=== PATIENT | male | born 1960 | race Caucasian/White ===

== ENCOUNTER 2016-04-06 12:36 | Inpatient (IN) | payer MEDICARE, OTHER ==
[2016-04-06] MEDS ORDERED: LORazepam 2 MG/ML SYRINGE IV STA (14:11)
[2016-04-06] MEDS ORDERED: SODIUM CHLORIDE 0.9% 1,000 ML IV STA ×2 (14:11)
--- NOTE | 2016-04-06 14:14 | ED ---
General Adult HPI - General Chief complaint: Recheck/Abnormal Lab/Rx Stated complaint: Anxiety,Pain Time Seen by Provider: 04/06/16 13:56 Source: patient, RN notes reviewed Mode of arrival: wheelchair Limitations: no limitations - History of Present Illness Initial comments: Patient 56-year-old male who presents emergency room today with a chief complaint of dizziness lightheadedness. Patient does admit that he is out of his medication of Xanax. States that he's been trying follow-up the family doctor. He states he does have an appointment coming up in 7 days. States she' s had increased shaking since being out of his medications. States feeling lightheaded and dizzy and states appetites been decreased. Patient denies any other complaints. Patient denies any recent fever, chills, shortness of breath, chest pain, back pain, abdominal pain, vomiting, dysuria or hematuria, constipation or diarrhea, headaches or visual changes, or any other complaints. - Related Data Home Medications Medication Instructions Recorded Confirmed ALPRAZolam [Xanax] 2 mg PO BID 03/27/16 03/27/16 Carisoprodol [Soma] 350 mg PO QID 03/27/16 03/27/16 Gabapentin [Neurontin] 300 mg PO TID 03/27/16 03/27/16 Pantoprazole [Protonix] 40 mg PO DAILY 03/27/16 03/27/16 QUEtiapine FUMARATE [SEROquel] 300 mg PO HS 03/27/16 03/27/16 Previous Rx's Medication Instructions Recorded Gabapentin [Neurontin] 300 mg PO BID 7 Days 03/27/16 Pantoprazole [Protonix] 40 mg PO ONCE 14 Days 03/27/16 QUEtiapine [SEROquel] 300 mg PO HS 14 Days 03/27/16 hydrOXYzine PAMOATE [Vistaril] 50 mg PO HS 14 Days 03/27/16 Allergies Allergy/AdvReac Type Severity Reaction Status Date / Time No Known Allergies Allergy Verified 04/06/16 12:53 Review of Systems ROS Statement: Those systems with pertinent positive or pertinent negative responses have been documented in the HPI. ROS Other: All systems not noted in ROS Statement are negative. Past Medical History Additional Past Medical History / Comment(s): chronic back pain History of Any Multi-Drug Resistant Organisms: None Reported Past Surgical History: Joint Replacement, Orthopedic Surgery Additional Past Surgical History / Comment(s): left hip Past Psychological History: Anxiety, Bipolar, Depression Smoking Status: Current every day smoker Past Alcohol Use History: None Reported Past Drug Use History: None Reported General Exam - General Exam Comments Initial Comments: General: The patient is awake and alert, in no distress, and does not appear acutely ill. Eye: Pupils are equal, round and reactive to light, extra-ocular movements are intact. No nystagmus. There is normal conjunctiva bilaterally. No signs of icterus. Ears, nose, mouth and throat: There are moist mucous membranes and no oral lesions. Neck: The neck is supple, there is no tenderness or JVD. Cardiovascular: There is a regular rate and rhythm. No murmur, rub or gallop is appreciated. Respiratory: Lungs are clear to auscultation, respirations are non-labored, breath sounds are equal. No wheezes, stridor, rales, or rhonchi. Gastrointestinal: Soft, non-distended, non-tender abdomen without masses or organomegaly noted. There is no rebound or guarding present. No CVA tenderness. Bowel sounds are unremarkable. Musculoskeletal: Normal ROM, no tenderness. Strength 5/5. Sensation intact. Pulses equal bilaterally 2+. Neurological: A&O x 3. CN II-XII intact, There are no obvious motor or sensory deficits. Coordination appears grossly intact. Speech is normal. Skin: Skin is warm and dry and no rashes or lesions are noted. Psychiatric: Cooperative, appropriate mood & affect, normal judgment. Limitations: no limitations Course Vital Signs 04/06/16 04/06/16 12:51 15:27 Temperature 98.1 F Pulse Rate 80 76 Respiratory 20 20 Rate Blood Pressure 173/92 161/102 O2 Sat by Pulse 98 99 Oximetry Medical Decision Making - Medical Decision Making Patient reexamined at this time states he is feeling better after Ativan given here in the emergency room. States still feels very shaky unsteady on his feet. Case was discussed with attending physician Dr. Sanchez. Patient will be admitted for withdrawal symptoms. - Lab Data Result diagrams: 04/06/16 14:25 04/06/16 14:25 Lab Results 04/06/16 04/06/16 04/06/16 Range/Units 14:25 14:25 15:06 WBC 12.0 H (3.8-10.6) k/uL RBC 4.93 (4.30-5.90) m/uL Hgb 15.0 (13.0-17.5) gm/dL Hct 43.9 (39.0-53.0) % MCV 89.0 (80.0-100.0) fL MCH 30.5 (25.0-35.0) pg MCHC 34.3 (31.0-37.0) g/dL RDW 13.7 (11.5-15.5) % Plt Count 390 (150-450) k/uL Neutrophils % 83 % Lymphocytes % 11 % Monocytes % 3 % Eosinophils % 1 % Basophils % 0 % Neutrophils # 10.0 H (1.3-7.7) k/uL Lymphocytes # 1.4 (1.0-4.8) k/uL Monocytes # 0.4 (0-1.0) k/uL Eosinophils # 0.1 (0-0.7) k/uL Basophils # 0.0 (0-0.2) k/uL Sodium 147 H (137-145) mmol/L Potassium 4.3 (3.5-5.1) mmol/L Chloride 106 (98-107) mmol/L Carbon Dioxide 23 (22-30) mmol/L Anion Gap 18 mmol/L BUN 29 H (9-20) mg/dL Creatinine 1.07 (0.66-1.25) mg/dL Est GFR (MDRD) Af Amer >60 (>60 ml/min/1.73 sqM) Est GFR (MDRD) Non-Af >60 (>60 ml/min/1.73 sqM) Glucose 126 H (74-99) mg/dL Calcium 10.1 (8.4-10.2) mg/dL Total Bilirubin 0.5 (0.2-1.3) mg/dL AST 19 (17-59) U/L ALT 37 (21-72) U/L Alkaline Phosphatase 80 (38-126) U/L Total Protein 8.1 (6.3-8.2) g/dL Albumin 4.9 (3.5-5.0) g/dL Urine Color Yellow Urine Appearance Clear (Clear) Urine pH 6.5 (5.0-8.0) Ur Specific [place] 1.025 (1.001-1.035) Urine Protein Trace H (Negative) Urine Glucose (UA) Negative (Negative) Urine Ketones Negative (Negative) Urine Blood Negative (Negative) Urine Nitrate Negative (Negative) Urine Bilirubin Negative (Negative) Urine Urobilinogen 2.0 (<2.0) mg/dL Ur Leukocyte Esterase Negative (Negative) Urine Opiates Screen Not Detected (NotDetected) Ur Oxycodone Screen Detected H (NotDetected) Urine Methadone Screen Not Detected (NotDetected) Ur Propoxyphene Screen Not Detected (NotDetected) Ur Barbiturates Screen Not Detected (NotDetected) U Tricyclic Antidepress Detected H (NotDetected) Ur Phencyclidine Scrn Not Detected (NotDetected) Ur Amphetamines Screen Not Detected (NotDetected) U Methamphetamines Scrn Not Detected (NotDetected) U Benzodiazepines Scrn Detected H (NotDetected) Urine Cocaine Screen Not Detected (NotDetected) U Marijuana (THC) Screen Not Detected (NotDetected) Disposition Clinical Impression: Benzodiazepine withdrawal Disposition: ADMITTED IP TO THIS HOSP Condition: Stable Time of Disposition: 16:11
[2016-04-06 14:35] LABS: Basophils % (A) 0 %; CH 30.7; CHCM 34.7; Eosinophils # (A) 0.1 k/uL (0-0.7); Eosinophils % (A) 1 %; HCT 43.9 % (39.0-53.0); HDW 2.56; Luc # (Auto) 0.09; Luc % (Auto) 1; Lymphocytes # (A) 1.4 k/uL (1.0-4.8); Lymphocytes % (A) 11 %; MCH 30.5 pg (25.0-35.0); MCHC 34.3 g/dL (31.0-37.0); Mean Platelet Volume 6.1; Monocytes # (A) 0.4 k/uL (0-1.0); Monocytes % (A) 3 %; Neutrophils % (A) 83 %; RBC 4.93 m/uL (4.30-5.90); RDW 13.7 % (11.5-15.5); WBC (Perox) 12.12
[2016-04-06 14:44] LABS: ALT 37 U/L (21-72); AST 19 U/L (17-59); Alkaline Phosphatase 80 U/L (38-126); Anion Gap 18 mmol/L; Blood Urea Nitrogen 29 mg/dL (9-20); Calcium 10.1 mg/dL (8.4-10.2); Carbon Dioxide 23 mmol/L (22-30); Chloride 106 mmol/L (98-107); Glucose 126 mg/dL (74-99); Non-African American GFR(MDRD) >60 (>60 ml/min/1.73 sqM); Potassium 4.3 mmol/L (3.5-5.1); Sodium 147 mmol/L (137-145); Total Bilirubin 0.5 mg/dL (0.2-1.3); Total Protein 8.1 g/dL (6.3-8.2)
[2016-04-06 15:16] LABS: Appearance,Urine Clear (Clear); Bilirubin,Urine Negative (Negative); Glucose,Urine (UA) Negative (Negative); Ketones,Urine Negative (Negative); Leukocyte Esterase,Urine Negative (Negative); Nitrite,Urine Negative (Negative); PH, Urine 6.5 (5.0-8.0); Protein,Urine Trace (Negative); Specific Gravity,Urine 1.025 (1.001-1.035); UA Billing (MACRO vs. MICRO) CHEM
[2016-04-06] MEDS ORDERED: NALOXONE 0.4 MG/ML 1 ML VIAL IV PRN (16:11)
[2016-04-06] MEDS ORDERED: SODIUM CHLORIDE 0.9% 1,000 ML IV ONE (16:11)
[2016-04-06] MEDS ORDERED: ACETAMINOPHEN TAB 325 MG TAB PO PRN (16:11)
[2016-04-06] MEDS ORDERED: LORazepam 2 MG/ML SYRINGE IV PRN (16:13)
[2016-04-06 18:33] VITALS: BMI 20.5
[2016-04-06] MEDS: LORazepam 2 MG/ML SYRINGE IV PRN ×3 (18:38→22:50)
[2016-04-06] MEDS: QUEtiapine 100 MG TAB PO SCH (20:13)
[2016-04-06] MEDS: GABAPENTIN 300 MG CAP PO SCH (20:13)
[2016-04-06] MEDS: PANTOPRAZOLE 40 MG TABLET PO SCH (20:14)
[2016-04-06] MEDS: oxyCODONE-APAP 7.5-325MG 1 EACH TAB PO PRN (20:14)
[2016-04-06] MEDS: hydrOXYzine PAMOATE 25 MG CAP PO SCH (22:51)
[2016-04-07 06:53] LABS: Basophils % (A) 1 %; CH 31.4; CHCM 33.8; Eosinophils # (A) 0.3 k/uL (0-0.7); Eosinophils % (A) 4 %; HCT 39.2 % (39.0-53.0); HDW 2.58; HGB 12.7 gm/dL (13.0-17.5); Luc # (Auto) 0.14; Luc % (Auto) 2; Lymphocytes % (A) 33 %; MCH 30.1 pg (25.0-35.0); MCHC 32.3 g/dL (31.0-37.0); MCV 93.3 fL (80.0-100.0); Mean Platelet Volume 6.8; Monocytes # (A) 0.4 k/uL (0-1.0); Monocytes % (A) 7 %; Neutrophils # (A) 3.2 k/uL (1.3-7.7); Neutrophils % (A) 53 %; RBC 4.21 m/uL (4.30-5.90); RDW 13.7 % (11.5-15.5); WBC 6.1 k/uL (3.8-10.6); WBC (Perox) 6.28
[2016-04-07 07:07] LABS: ALT 25 U/L (21-72); AST 13 U/L (17-59); Alkaline Phosphatase 55 U/L (38-126); Anion Gap 7 mmol/L; Blood Urea Nitrogen 23 mg/dL (9-20); Calcium 9.2 mg/dL (8.4-10.2); Carbon Dioxide 23 mmol/L (22-30); Chloride 110 mmol/L (98-107); Glucose 103 mg/dL (74-99); Non-African American GFR(MDRD) >60 (>60 ml/min/1.73 sqM); Potassium 4.1 mmol/L (3.5-5.1); Sodium 140 mmol/L (137-145); Total Bilirubin 0.3 mg/dL (0.2-1.3); Total Protein 5.9 g/dL (6.3-8.2)
[2016-04-07] MEDS: oxyCODONE-APAP 7.5-325MG 1 EACH TAB PO PRN ×3 (07:51→23:55)
[2016-04-07] MEDS: PANTOPRAZOLE 40 MG TABLET PO SCH (07:51)
[2016-04-07] MEDS: GABAPENTIN 300 MG CAP PO SCH ×2 (07:53→19:59)
[2016-04-07] MEDS: LORazepam 2 MG/ML SYRINGE IV PRN ×5 (07:57→23:56)
[2016-04-07] MEDS: IBUPROFEN 400 MG TAB PO PRN ×2 (11:45→20:02)
[2016-04-07] MEDS: QUEtiapine 100 MG TAB PO SCH (19:59)
[2016-04-07] MEDS: hydrOXYzine PAMOATE 25 MG CAP PO SCH (19:59)
[2016-04-08] MEDS: LORazepam 2 MG/ML SYRINGE IV PRN ×5 (03:53→19:45)
[2016-04-08 05:10] VITALS: RESP 16
[2016-04-08] MEDS: GABAPENTIN 300 MG CAP PO SCH ×2 (10:38→20:02)
[2016-04-08] MEDS: PANTOPRAZOLE 40 MG TABLET PO SCH (10:38)
[2016-04-08] MEDS: oxyCODONE-APAP 7.5-325MG 1 EACH TAB PO PRN ×2 (10:45→18:50)
--- NOTE | 2016-04-08 11:18 | HP ---
DATE OF ADMISSION: 04/06/2016 CHIEF COMPLAINT: Anxiety and pain. HISTORY OF PRESENT ILLNESS: Mr. Juarez is a 56-year-old male with known history of chronic back pain and anxiety. He came to the hospital with complaints of dizziness and lightheadedness. Patient admitted that he is out of his medication of Xanax. He has been trying to follow with his primary doctor. He does have an appointment in 7 days but he his increasing shaking and anxiety made him come to the ER. Patient had lightheadedness and dizziness and loss of appetite on admission. Denied any fever, chills. No nausea, vomiting, abdominal pain. No diarrhea. No dysuria. No recent illness. No sick contacts. No headache or dizziness or lightheadedness. All other fourteen-point review of systems negative except as above. PAST MEDICAL HISTORY: Chronic back pain, anxiety. PAST SURGICAL HISTORY: Left hip replacement. PSYCHOSOCIAL HISTORY: Anxiety, bipolar, depression. SOCIAL HISTORY: Patient is currently an everyday smoker. Occasional alcohol use. Denied drugs or IVDU. ALLERGIES: No known drug allergies. Home medications include: 1. Xanax. 2. Neurontin. 3. Protonix. 4. Seroquel. 5. Restoril. FAMILY HISTORY: Denied any history of hypertension or diabetes mellitus. PHYSICAL EXAMINATION: A 56-year-old male lying in the bed. Awake, alert, oriented, times x3. He appears to be shaky and with tremors. VITALS: Blood pressure is 122/70, pulse is 70, respirations 18, temperature afebrile, pulse ox 98% on room air. HEENT: Atraumatic, normocephalic. NECK: Supple. No JVD. CVS: S1, S2 heard. No murmurs, no gallop, no rub. LUNGS: Bilateral air entry is present. No edema or crackles. Nonlabored breathing. ABDOMEN: Soft, nontender. Bowel sounds present. MORTGAGE BRANCH MANAGER: Awake, alert, oriented, x3. No focal deficits. Cranial nerves grossly intact. The patient does have essential tremor. PSYCHIATRIC: Cooperative. Anxious. LABORATORY DATA: WBC 12.0, hemoglobin 15.0, platelets 390, sodium 147, potassium 4.3, chloride 106, bicarbonate 23, BUN 29, creatinine 1.07. IMPRESSION:
--- NOTE | 2016-04-08 12:13 | HP ---
ADDENDUM: IMPRESSION: 1. Acute Xanax withdrawal with shakiness and anxiety. 2. History of anxiety, depression. 3. Chronic back pain. DISCUSSION AND PLAN: Patient admitted to the hospital with acute Xanax withdrawal. Continue with the Ativan 5 mg 1-2 p.r.n. and the patient was given IV flush in the ER. Continue with home medications and follow up. Further recommendations based on clinical course.
[2016-04-08] MEDS: hydrOXYzine PAMOATE 25 MG CAP PO SCH (20:01)
[2016-04-08] MEDS: QUEtiapine 100 MG TAB PO SCH (20:02)
[2016-04-08] MEDS ORDERED: MAG HYDROX/AL HYDROX/SIMETH 30 ML CUP PO PRN (20:12)
[2016-04-09] MEDS: oxyCODONE-APAP 7.5-325MG 1 EACH TAB PO PRN ×2 (05:24→12:37)
[2016-04-09] MEDS: LORazepam 2 MG/ML SYRINGE IV PRN ×3 (05:58→12:00)
[2016-04-09 07:27] VITALS: BP 113/72; PULSE 58; TEMP 96.9
[2016-04-09] MEDS ORDERED: PANTOPRAZOLE 40 MG TABLET PO SCH (07:30)
[2016-04-09] MEDS: GABAPENTIN 300 MG CAP PO SCH (08:07)
--- NOTE | 2016-04-09 12:53 | PN ---
DATE OF SERVICE: 04/08/2016 INTERVAL HISTORY: Mr. Juarez is a 56-year-old man with a known history of chronic back pain and anxiety admitted to the hospital with dizziness and lightheadedness and acute ( ) withdrawal. The patient was continued on Ativan at this time. Otherwise, the patient is still having shakiness and lightheadedness and dizziness. Tolerating diet slowly. Otherwise, no fever. No chills. No chest pain, short of breath. No acute overnight issues. Anticipate discharge in the next 24 hours if more clinical improvement. REVIEW OF SYSTEMS: CONSTITUTIONAL: No fever, no chills. RESPIRATORY: No cough or sputum production. CARDIOVASCULAR: No chest pain or short of breath. ABDOMEN: No nausea, vomiting. GENITOURINARY: Negative. ENDOCRINE: Negative. SKIN: Negative. PSYCHIATRY: Negative. All other 14 point review of systems negative except as above. CURRENT MEDICATIONS: Reviewed. PHYSICAL EXAMINATION: A 56-year-old male lying in comfortably, awake, alert, oriented, x3. Appears to be anxious and shaky. VITAL SIGNS: Blood pressure is 126/74, pulse is 75, respiratory rate 16. Temperature afebrile. Pulse ox 92% on room air. HEENT: Atraumatic. Normocephalic. Neck is supple. No JVD. CVS: S1, S2 heard. No murmurs. No gallops. No rubs. LUNGS: Bilateral air entry is present. No wheezing. No crackles. ABDOMEN: Soft, nontender. Bowel sounds present. VEHICLE MECHANIC: Awake, alert and oriented x3. No focal neurological deficits. Cranial nerves grossly intact. Conscious. SKIN: Negative. MUSCULOSKELETAL: No joint swelling or deformities. SKIN: No rash or skin lesions. LABORATORY DATA: Reviewed. IMPRESSION: 1. Acute benzo withdrawal. Still having shaky and anxious. 2. History of anxiety and depression. 3. Chronic back pain. DISCUSSION AND PLAN: A 56 -year-old male admitted to the hospital with acute benzo withdrawal. We will continue with Ativan at this time. Continue to monitor closely. Anticipate discharge in the next 24 hours with more clinical improvement. Encourage p.o. intake. MTDD
--- NOTE | 2016-04-25 11:41 | DS ---
DATE OF ADMISSION: 04/08/2016 DATE OF DISCHARGE: 04/09/2016 DISCHARGE DIAGNOSES: 1. Acute benzodiazepine withdrawal, symptomatically improved now. 2. History of anxiety and depression. 3. Chronic back pain. HOSPITAL COURSE: Mr. Juarez is a 56-year-old male with known history of anxiety and depression, chronic back pain, currently out of medications, admitted to the hospital with worsening shakiness and dizziness and lightheadedness and acute benzodiazepine withdrawal. Patient was continued on Ativan at this time and closely monitored in the hospital. Current patient is symptomatically much improved now. Started back on his home dose of Xanax on discharge as well. Currently, patient is more awake and oriented and tolerating p.o. diet. The patient will be discharged home in stable condition and follow up with primary care physician. DISCHARGE PHYSICAL EXAMINATION: A 56-year-old male lying in bed comfortably, awake, alert, oriented x3. VITALS: Blood pressure is 113/72, pulse is 58, respirations 16, temperature afebrile, pulse ox 97% on room air. Laboratory data reviewed. Discharge physical examination done. Discharge medications include: 1. Xanax 1mg p.o. q.8 hourly p.r.n. for anxiety. 2. Gabapentin 300 mg p.o. b.i.d. 3. Protonix 40 mg p.o. daily. 4. Seroquel 300 mg p.o. at bedtime. 5. Vistaril 50 mg p.o. at bedtime. 6. Percocet 7.5 one tablet p.o. q.8 hourly p.r.n. for pain. The patient will be discharged home with self-care. Follow with Dr. Mata in one week.
== END 2016-04-09 12:59 | disposition home or self-care (01) | DRG 897 ==
LOC: EC 12:36 → 3OBS 16:12 → OBSVTOIN 04-08 14:11 → 3SUR 04-08 15:27
PROVIDERS: ADMIT Hospitalist; ATTEND Hospitalist
DX: F13.239 Sedative, hypnotic or anxiolytic dependence with withdrawal, unspecified (principal); F32.9 Major depressive disorder, single episode, unspecified; F41.9 Anxiety disorder, unspecified; G89.29 Other chronic pain; M54.9 Dorsalgia, unspecified; F17.200 Nicotine dependence, unspecified, uncomplicated; Z96.642 Presence of left artificial hip joint; Z79.899 Other long term (current) drug therapy
CPT/HCPCS: 36415; 80053; 80300; 81003; 85025; 96361; 96374; 96376; 99284

== ENCOUNTER → 2016-04-30 | Outpatient (CLI) | payer MEDICARE, OTHER ==
--- NOTE | 2016-04-30 16:30 | XR ---
EXAMINATION TYPE: XR chest 2V DATE OF EXAM: 04/30/2016 11:57 AM COMPARISON: Prior chest x-ray second of March 2012 HISTORY: Cough TECHNIQUE: Frontal and lateral views of the chest are obtained. FINDINGS: Prominent lung volumes are present. This may be indicative of COPD. Wedge compression defo rmity present at the upper thoracic spine which is chronic. No pneumonia, pneumothorax, or pleural ef fusion. There is eventration of the right hemidiaphragm. Cardiomediastinal silhouette, pulmonary vasc ularity and viral are stable. IMPRESSION: No acute cardiopulmonary process. Follow-up as indicated.
== END | disposition home or self-care (01) ==
LOC: RADXRMAIN 04-28 12:26
PROVIDERS: ATTEND Internal Medicine
DX: R05 Cough (principal)
CPT/HCPCS: 71020

== ENCOUNTER 2016-05-16 14:08 | Emergency (ER) | payer MEDICARE, OTHER ==
[2016-05-16 14:27] VITALS: BP 136/98; PULSE 84; RESP 20; TEMP 98.8
--- NOTE | 2016-05-16 15:00 | ED ---
General Adult HPI - General Chief complaint: Recheck/Abnormal Lab/Rx Stated complaint: Med Refill Time Seen by Provider: 05/16/16 14:40 Source: patient, RN notes reviewed Mode of arrival: ambulatory Limitations: no limitations - History of Present Illness Initial comments: This is a 48-year-old male presents for medication refill requesting his Xanax. Patient states he has called his doctor twice and she will not refill his Xanax. Patient states his last dose of Xanax was one month ago. Patient has not had any Xanax since this time. Patient states he is trying to follow up with psychiatrist in the future. Patient denies any recent fever, chills, shortness breath, chest pain, abdominal pain, nausea/vomiting/diarrhea, back pain, numbness, tingling, hematuria, headache, or visual changes, or any other complaints. - Related Data Previous Rx's Medication Instructions Recorded ALPRAZolam [Xanax] 1 mg PO Q8H PRN #15 tablet 04/08/16 Gabapentin [Neurontin] 300 mg PO BID 7 Days 04/09/16 Pantoprazole [Protonix] 40 mg PO DAILY #30 tablet. 04/09/16 QUEtiapine [SEROquel] 300 mg PO HS 14 Days 04/09/16 hydrOXYzine PAMOATE [Vistaril] 50 mg PO HS 14 Days 04/09/16 oxyCODONE-APAP 7.5-325MG [Percocet 1 tab PO Q8H PRN #20 tab 04/09/16 7.5-325 mg] Allergies Allergy/AdvReac Type Severity Reaction Status Date / Time No Known Allergies Allergy Verified 05/16/16 14:27 Review of Systems ROS Statement: Those systems with pertinent positive or pertinent negative responses have been documented in the HPI. ROS Other: All systems not noted in ROS Statement are negative. Past Medical History Additional Past Medical History / Comment(s): chronic back pain History of Any Multi-Drug Resistant Organisms: None Reported Past Surgical History: Joint Replacement, Orthopedic Surgery Additional Past Surgical History / Comment(s): left hip, right hip compound fracture Past Anesthesia/Blood Transfusion Reactions: No Reported Reaction Past Psychological History: Anxiety, Bipolar, Depression Smoking Status: Current every day smoker Past Alcohol Use History: None Reported Past Drug Use History: None Reported - Past Family History Mother Family Medical History: No Reported History General Exam - General Exam Comments Initial Comments: General: The patient is awake and alert, in no distress, and does not appear acutely ill. Eye: Pupils are equal, round and reactive to light, extra-ocular movements are intact. No nystagmus. There is normal conjunctiva bilaterally. No signs of icterus. Neck: The neck is supple, there is no tenderness or JVD. Cardiovascular: There is a regular rate and rhythm. No murmur, rub or gallop is appreciated. Respiratory: Lungs are clear to auscultation, respirations are non-labored, breath sounds are equal. No wheezes, stridor, rales, or rhonchi. Musculoskeletal: Normal ROM, no tenderness. Strength 5/5. Sensation intact. Radial pulses equal bilaterally 2+. Neurological: A&O x 3. CN II-XII intact, There are no obvious motor or sensory deficits. Coordination appears grossly intact. Speech is normal. Skin: Skin is warm and dry and no rashes or lesions are noted. Psychiatric: Cooperative, appropriate mood & affect, normal judgment. Limitations: no limitations Course Vital Signs 05/16/16 14:25 Temperature 98.8 F Pulse Rate 84 Respiratory 20 Rate Blood Pressure 136/98 O2 Sat by Pulse 96 Oximetry Medical Decision Making - Medical Decision Making This is a 48-year-old male who presents requesting Xanax. Patient states his last dose was one month ago. Physical exam is within normal limits. Patient is able to ambulate. I discussed with patient that he will have to follow up with his primary care physician for his Xanax refills. Patient has had several visits to the [facility] for Xanax refills and was told that he needs to follow-up with his primary care physician from now on for refills. Patient does have a history of benzo withdrawal, but patient states his last dose of any benzodiazepines was one month ago. I discussed this case with attending physician Dr. Rich who agrees with plan as stated above. Patient is receptive to this plan and patient will be discharged home. Disposition Clinical Impression: Encounter for medication refill Disposition: HOME SELF-CARE Condition: Good Instructions: Benzodiazepine Abuse (ED) Additional Instructions: Please follow-up with her primary care physician today or tomorrow to discuss future refills. Please return to the [facility] for any worsening symptoms or for any further concerns. Referrals: Fatoumata Copeland MD [Primary Care Provider] - 1-2 days Time of Disposition: 15:00
== END 2016-05-16 15:03 | disposition home or self-care (01) ==
LOC: EC 14:08
DX: F13.10 Sedative, hypnotic or anxiolytic abuse, uncomplicated (principal); Z76.0 Encounter for issue of repeat prescription; F17.200 Nicotine dependence, unspecified, uncomplicated
CPT/HCPCS: 99281

== ENCOUNTER 2016-05-17 11:52 | Emergency (ER) | payer MEDICARE, OTHER ==
--- NOTE | 2016-05-17 12:56 | ED ---
General Adult HPI - General Chief complaint: Anxiety Stated complaint: med refill Time Seen by Provider: 05/17/16 12:10 Source: patient, RN notes reviewed Mode of arrival: ambulatory Limitations: no limitations - History of Present Illness Initial comments: 56-year-old male presents emergency department for anxiety. Patient has had several ER visits for medication refills. Patient has been off his Xanax approximately 4 weeks. Patient was admitted at that time for benzodiazepine withdrawal symptoms. Patient states his primary care physician is not fill his medications any more. Patient has not seen in emergency department told that he would not have his medications refilled. Patient states his primary caregivers wants him to come emergency by for psychiatric services. Patient states he has had some suicidal thoughts but states he has not at this time. Patient denies homicidal thoughts. Patient denies illicit drug use now call use. - Related Data Previous Rx's Medication Instructions Recorded ALPRAZolam [Xanax] 1 mg PO Q8H PRN #15 tablet 04/08/16 Gabapentin [Neurontin] 300 mg PO BID 7 Days 04/09/16 Pantoprazole [Protonix] 40 mg PO DAILY #30 tablet. 04/09/16 QUEtiapine [SEROquel] 300 mg PO HS 14 Days 04/09/16 hydrOXYzine PAMOATE [Vistaril] 50 mg PO HS 14 Days 04/09/16 oxyCODONE-APAP 7.5-325MG [Percocet 1 tab PO Q8H PRN #20 tab 04/09/16 7.5-325 mg] chlordiazePOXIDE HCl [Librium] 0 mg PO DIRECTED #10 capsule 05/17/16 Allergies Allergy/AdvReac Type Severity Reaction Status Date / Time No Known Allergies Allergy Verified 05/17/16 12:27 Review of Systems ROS Statement: Those systems with pertinent positive or pertinent negative responses have been documented in the HPI. ROS Other: All systems not noted in ROS Statement are negative. Past Medical History Additional Past Medical History / Comment(s): chronic back pain History of Any Multi-Drug Resistant Organisms: None Reported Past Surgical History: Joint Replacement, Orthopedic Surgery Additional Past Surgical History / Comment(s): left hip, right hip compound fracture Past Anesthesia/Blood Transfusion Reactions: No Reported Reaction Past Psychological History: Anxiety, Bipolar, Depression Smoking Status: Current every day smoker Past Alcohol Use History: None Reported Past Drug Use History: None Reported - Past Family History Mother Family Medical History: No Reported History General Exam Limitations: no limitations General appearance: alert, in no apparent distress Head exam: Present: atraumatic, normocephalic, normal inspection Eye exam: Present: normal appearance, PERRL, EOMI. Absent: scleral icterus, conjunctival injection, periorbital swelling ENT exam: Present: normal exam, normal oropharynx, mucous membranes moist Neck exam: Present: normal inspection, full ROM. Absent: tenderness, meningismus, lymphadenopathy Respiratory exam: Present: normal lung sounds bilaterally. Absent: respiratory distress, wheezes, rales, rhonchi, stridor Cardiovascular Exam: Present: regular rate, normal rhythm, normal heart sounds. Absent: systolic murmur, diastolic murmur, rubs, gallop, clicks Neurological exam: Present: alert, oriented X3, CN II-XII intact Psychiatric exam: Present: anxious Course Vital Signs 05/17/16 05/17/16 11:57 15:04 Temperature 98.8 F 98.8 F Pulse Rate 96 73 Respiratory 20 18 Rate Blood Pressure 178/87 154/94 O2 Sat by Pulse 96 97 Oximetry Medical Decision Making - Medical Decision Making Patient was evaluated by EPS. Patient has been given Valium from his sister at this time. Psychiatrist is recommended that he be written a weaning dose of Librium. Patient is informed that he will not receive any further benzodiazepines to the emergency department. Patient agrees this plan. - Lab Data Lab Results 05/17/16 Range/Units 13:50 Urine Opiates Screen Not Detected (NotDetected) Ur Oxycodone Screen Detected H (NotDetected) Urine Methadone Screen Not Detected (NotDetected) Ur Propoxyphene Screen Not Detected (NotDetected) Ur Barbiturates Screen Not Detected (NotDetected) U Tricyclic Antidepress Detected H (NotDetected) Ur Phencyclidine Scrn Not Detected (NotDetected) Ur Amphetamines Screen Not Detected (NotDetected) U Methamphetamines Scrn Not Detected (NotDetected) U Benzodiazepines Scrn Detected H (NotDetected) Urine Cocaine Screen Not Detected (NotDetected) U Marijuana (THC) Screen Not Detected (NotDetected) Disposition Clinical Impression: Acute anxiety Disposition: HOME SELF-CARE Condition: Stable Instructions: Generalized Anxiety Disorder (ED) Additional Instructions: He must follow-up with a psychiatrist or primary care physician for further medication refills. You will be written a prescription for a weaning dose of Librium. Please return to the Emergency Department if symptoms worsen or any other concerns. Prescriptions: chlordiazePOXIDE HCl [Librium] 0 mg PO DIRECTED #10 capsule Time of Disposition: 16:18
[2016-05-17 16:28] VITALS: BP 153/92; PULSE 67; RESP 16; TEMP 98.2
== END 2016-05-17 16:32 | disposition home or self-care (01) ==
LOC: EC 11:52
DX: F41.9 Anxiety disorder, unspecified (principal); Z79.899 Other long term (current) drug therapy; F17.200 Nicotine dependence, unspecified, uncomplicated; F32.9 Major depressive disorder, single episode, unspecified
CPT/HCPCS: 80306; 82075; 99283

== ENCOUNTER 2016-05-23 12:36 | Emergency (ER) | payer MEDICARE, OTHER ==
[2016-05-23] MEDS ORDERED: SODIUM CHLORIDE 0.9% 1,000 ML IV STA (14:05)
--- NOTE | 2016-05-23 14:59 | ED ---
General Adult HPI - General Chief complaint: Recheck/Abnormal Lab/Rx Stated complaint: Referred By Binta Copeland Time Seen by Provider: 05/23/16 13:34 Source: patient, RN notes reviewed Mode of arrival: ambulatory - History of Present Illness Initial comments: Patient is a 56-year-old male who presents emergency room today with chief complaint of possible withdrawal symptoms. Patient does admit that he's been out of his Xanax for the last month. [facility] family doctor will no longer write him a prescription. He states he did come here to the hospital recently for a psychiatric evaluation. He states he has tried The outpatient numbers has not been able to get a hold of anyone. [facility] family doctor still will not write a prescription. States felt very weak and dizzy somewhat today. Patient denies any other complaints associated symptoms currently. He does feel these are consistent with his withdrawal symptoms that he's had in the past. Was given a prescription for Librium recently finished 2 days ago. Patient denies any other complaints. Patient denies any recent fever, chills, shortness of breath, chest pain, back pain, abdominal pain, nausea or vomiting, numbness or tingling , dysuria or hematuria, constipation or diarrhea, headaches or visual changes, or any other complaints. - Related Data Home Medications Medication Instructions Recorded Confirmed Folic Acid 1 mg PO DAILY 05/23/16 05/23/16 Gabapentin 600 mg PO BID 05/23/16 05/23/16 QUEtiapine FUMARATE [SEROquel] 300 mg PO HS 05/23/16 05/23/16 Previous Rx's Medication Instructions Recorded ALPRAZolam [Xanax] 1 mg PO Q8H PRN #15 tablet 04/08/16 Pantoprazole [Protonix] 40 mg PO DAILY #30 tablet. 04/09/16 QUEtiapine [SEROquel] 300 mg PO HS 14 Days 04/09/16 hydrOXYzine PAMOATE [Vistaril] 50 mg PO HS 14 Days 04/09/16 oxyCODONE-APAP 7.5-325MG [Percocet 1 tab PO Q8H PRN #20 tab 04/09/16 7.5-325 mg] cloNIDine HCL [Catapres] 0.1 mg PO BID #10 05/23/16 Allergies Allergy/AdvReac Type Severity Reaction Status Date / Time No Known Allergies Allergy Verified 05/23/16 14:27 Review of Systems ROS Statement: Those systems with pertinent positive or pertinent negative responses have been documented in the HPI. ROS Other: All systems not noted in ROS Statement are negative. Past Medical History Additional Past Medical History / Comment(s): chronic back pain History of Any Multi-Drug Resistant Organisms: None Reported Past Surgical History: Joint Replacement, Orthopedic Surgery Additional Past Surgical History / Comment(s): left hip, right hip compound fracture Past Anesthesia/Blood Transfusion Reactions: No Reported Reaction Past Psychological History: Anxiety, Bipolar, Depression Smoking Status: Current every day smoker Past Alcohol Use History: None Reported Past Drug Use History: None Reported - Past Family History Mother Family Medical History: No Reported History General Exam - General Exam Comments Initial Comments: General: The patient is awake and alert, in no distress, and does not appear acutely ill. Eye: Pupils are equal, round and reactive to light, extra-ocular movements are intact. No nystagmus. There is normal conjunctiva bilaterally. No signs of icterus. Ears, nose, mouth and throat: There are moist mucous membranes and no oral lesions. Neck: The neck is supple, there is no tenderness or JVD. Cardiovascular: There is a regular rate and rhythm. No murmur, rub or gallop is appreciated. Respiratory: Lungs are clear to auscultation, respirations are non-labored, breath sounds are equal. No wheezes, stridor, rales, or rhonchi. Gastrointestinal: Soft, non-distended, non-tender abdomen without masses or organomegaly noted. There is no rebound or guarding present. No CVA tenderness. Bowel sounds are unremarkable. Musculoskeletal: Normal ROM, no tenderness. Strength 5/5. Sensation intact. Pulses equal bilaterally 2+. Neurological: A&O x 3. CN II-XII intact, There are no obvious motor or sensory deficits. Coordination appears grossly intact. Speech is normal. Skin: Skin is warm and dry and no rashes or lesions are noted. Psychiatric: Cooperative, appropriate mood & affect, normal judgment. Course Vital Signs 05/23/16 05/23/16 05/23/16 12:38 14:26 15:16 Temperature 97.6 F 97.2 F L 98.0 F Pulse Rate 83 77 74 Respiratory 18 20 20 Rate Blood Pressure 153/90 142/96 122/84 O2 Sat by Pulse 98 97 98 Oximetry Medical Decision Making - Medical Decision Making Patient reexamined at this time shows no signs of distress. Patient's labs been reviewed are unremarkable. Patient's EKG shows normal sinus rhythm. Case discussed with attending physician Dr. Reed who also saw patient at bedside. Patient continues to have withdrawal type symptoms. Continues to ask for Ativan or Xanax. Patient states Librium that he was given last time did not do anything for. At this time advised patient can no longer provide him with any benzos. Advised patient that we will give him a prescription for clonidine for his withdrawal symptoms and that he needs follow-up family doctor. - Lab Data Result diagrams: 05/23/16 14:59 05/23/16 14:59 Lab Results 05/23/16 05/23/16 05/23/16 Range/Units 14:59 14:59 14:59 WBC 4.9 (3.8-10.6) k/uL RBC 4.64 (4.30-5.90) m/uL Hgb 13.9 (13.0-17.5) gm/dL Hct 43.0 (39.0-53.0) % MCV 92.8 (80.0-100.0) fL MCH 29.9 (25.0-35.0) pg MCHC 32.2 (31.0-37.0) g/dL RDW 13.6 (11.5-15.5) % Plt Count 195 (150-450) k/uL Neutrophils % 66 % Lymphocytes % 26 % Monocytes % 5 % Eosinophils % 2 % Basophils % 0 % Neutrophils # 3.2 (1.3-7.7) k/uL Lymphocytes # 1.3 (1.0-4.8) k/uL Monocytes # 0.2 (0-1.0) k/uL Eosinophils # 0.1 (0-0.7) k/uL Basophils # 0.0 (0-0.2) k/uL PT 10.0 (9.0-12.0) sec INR 1.0 (<1.1) APTT 22.5 (22.0-30.0) sec Sodium 144 (137-145) mmol/L Potassium 4.5 (3.5-5.1) mmol/L Chloride 104 (98-107) mmol/L Carbon Dioxide 28 (22-30) mmol/L Anion Gap 12 mmol/L BUN 10 (9-20) mg/dL Creatinine 0.94 (0.66-1.25) mg/dL Est GFR (MDRD) Af Amer >60 (>60 ml/min/1.73 sqM) Est GFR (MDRD) Non-Af >60 (>60 ml/min/1.73 sqM) Glucose 98 (74-99) mg/dL Calcium 9.4 (8.4-10.2) mg/dL Total Bilirubin 0.4 (0.2-1.3) mg/dL AST 25 (17-59) U/L ALT 29 (21-72) U/L Alkaline Phosphatase 70 (38-126) U/L Troponin I (0.000-0.034) ng/mL Total Protein 7.5 (6.3-8.2) g/dL Albumin 4.4 (3.5-5.0) g/dL Urine Color Urine Appearance (Clear) Urine pH (5.0-8.0) Ur Specific [place] (1.001-1.035) Urine Protein (Negative) Urine Glucose (UA) (Negative) Urine Ketones (Negative) Urine Blood (Negative) Urine Nitrate (Negative) Urine Bilirubin (Negative) Urine Urobilinogen (<2.0) mg/dL Ur Leukocyte Esterase (Negative) 05/23/16 05/23/16 Range/Units 14:59 15:22 WBC (3.8-10.6) k/uL RBC (4.30-5.90) m/uL Hgb (13.0-17.5) gm/dL Hct (39.0-53.0) % MCV (80.0-100.0) fL MCH (25.0-35.0) pg MCHC (31.0-37.0) g/dL RDW (11.5-15.5) % Plt Count (150-450) k/uL Neutrophils % % Lymphocytes % % Monocytes % % Eosinophils % % Basophils % % Neutrophils # (1.3-7.7) k/uL Lymphocytes # (1.0-4.8) k/uL Monocytes # (0-1.0) k/uL Eosinophils # (0-0.7) k/uL Basophils # (0-0.2) k/uL PT (9.0-12.0) sec INR (<1.1) APTT (22.0-30.0) sec Sodium (137-145) mmol/L Potassium (3.5-5.1) mmol/L Chloride (98-107) mmol/L Carbon Dioxide (22-30) mmol/L Anion Gap mmol/L BUN (9-20) mg/dL Creatinine (0.66-1.25) mg/dL Est GFR (MDRD) Af Amer (>60 ml/min/1.73 sqM) Est GFR (MDRD) Non-Af (>60 ml/min/1.73 sqM) Glucose (74-99) mg/dL Calcium (8.4-10.2) mg/dL Total Bilirubin (0.2-1.3) mg/dL AST (17-59) U/L ALT (21-72) U/L Alkaline Phosphatase (38-126) U/L Troponin I <0.012 (0.000-0.034) ng/mL Total Protein (6.3-8.2) g/dL Albumin (3.5-5.0) g/dL Urine Color Light Yellow Urine Appearance Clear (Clear) Urine pH 7.5 (5.0-8.0) Ur Specific [place] 1.006 (1.001-1.035) Urine Protein Negative (Negative) Urine Glucose (UA) Negative (Negative) Urine Ketones Negative (Negative) Urine Blood Negative (Negative) Urine Nitrate Negative (Negative) Urine Bilirubin Negative (Negative) Urine Urobilinogen <2.0 (<2.0) mg/dL Ur Leukocyte Esterase Negative (Negative) Disposition Clinical Impression: Withdrawal from benzodiazepine Disposition: HOME SELF-CARE Condition: Stable Instructions: Benzodiazepine Abuse (ED) Additional Instructions: Please use medication as discussed. Please follow-up with family doctor in the next 2 days. Please return to emergency room if the symptoms increase or worsen or for any other concerns. Prescriptions: cloNIDine HCL [Catapres] 0.1 mg PO BID #10 Time of Disposition: 16:09
[2016-05-23 15:11] LABS: Basophils % (A) 0 %; CH 30.4; CHCM 32.9; Eosinophils # (A) 0.1 k/uL (0-0.7); Eosinophils % (A) 2 %; HDW 2.49; HGB 13.9 gm/dL (13.0-17.5); Luc % (Auto) 2; Lymphocytes # (A) 1.3 k/uL (1.0-4.8); Lymphocytes % (A) 26 %; MCH 29.9 pg (25.0-35.0); MCHC 32.2 g/dL (31.0-37.0); MCV 92.8 fL (80.0-100.0); Mean Platelet Volume 6.4; Monocytes # (A) 0.2 k/uL (0-1.0); Monocytes % (A) 5 %; Neutrophils # (A) 3.2 k/uL (1.3-7.7); Neutrophils % (A) 66 %; RBC 4.64 m/uL (4.30-5.90); RDW 13.6 % (11.5-15.5); WBC 4.9 k/uL (3.8-10.6); WBC (Perox) 5.29
[2016-05-23 15:20] LABS: Partial Thromboplastin Time 22.5 sec (22.0-30.0)
[2016-05-23 15:21] LABS: ALT 29 U/L (21-72); AST 25 U/L (17-59); Alkaline Phosphatase 70 U/L (38-126); Anion Gap 12 mmol/L; Blood Urea Nitrogen 10 mg/dL (9-20); Calcium 9.4 mg/dL (8.4-10.2); Carbon Dioxide 28 mmol/L (22-30); Chloride 104 mmol/L (98-107); Glucose 98 mg/dL (74-99); Non-African American GFR(MDRD) >60 (>60 ml/min/1.73 sqM); Potassium 4.5 mmol/L (3.5-5.1); Sodium 144 mmol/L (137-145); Total Bilirubin 0.4 mg/dL (0.2-1.3); Total Protein 7.5 g/dL (6.3-8.2)
[2016-05-23 16:01] LABS: Appearance,Urine Clear (Clear); Bilirubin,Urine Negative (Negative); Glucose,Urine (UA) Negative (Negative); Ketones,Urine Negative (Negative); Leukocyte Esterase,Urine Negative (Negative); Nitrite,Urine Negative (Negative); PH, Urine 7.5 (5.0-8.0); Protein,Urine Negative (Negative); Specific Gravity,Urine 1.006 (1.001-1.035); UA Billing (MACRO vs. MICRO) CHEM; Urobilinogen,Urine <2.0 mg/dL (<2.0)
[2016-05-23 16:27] VITALS: BP 120/83; PULSE 75; RESP 18; TEMP 97.6
== END 2016-05-23 16:27 | disposition home or self-care (01) ==
LOC: EC 12:36
DX: F13.239 Sedative, hypnotic or anxiolytic dependence with withdrawal, unspecified (principal); F41.9 Anxiety disorder, unspecified; F32.9 Major depressive disorder, single episode, unspecified; F17.210 Nicotine dependence, cigarettes, uncomplicated; Z79.899 Other long term (current) drug therapy
CPT/HCPCS: 36415; 80053; 80306; 81003; 84484; 85025; 85610; 85730; 93005; 99285

== ENCOUNTER 2016-06-04 14:01 | Emergency (ER) | payer MEDICARE, OTHER ==
[2016-06-04 14:13] VITALS: BP 139/99; PULSE 88; RESP 20; TEMP 98.3
--- NOTE | 2016-06-04 15:12 | ED ---
General Adult HPI - General Chief complaint: Recheck/Abnormal Lab/Rx Stated complaint: Anxiety Time Seen by Provider: 06/04/16 14:52 Source: patient, RN notes reviewed Mode of arrival: ambulatory Limitations: no limitations - History of Present Illness Initial comments: Patient is a pleasant 56-year-old male presenting to the emergency department complaining of anxiety. Patient states last time he was here was April. Chart review reveals patient has been here for times now this month. Patient requests refill for Xanax specifically by name. Patient states he never missed use the medication but his doctor thought he did and therefore she will not fill it. Patient claims he has never had a discussion regarding other medications for his anxiety with his doctor. Patient is encouraged to do this. - Related Data Home Medications Medication Instructions Recorded Confirmed Folic Acid 1 mg PO DAILY 05/23/16 05/23/16 Gabapentin 600 mg PO BID 05/23/16 05/23/16 QUEtiapine FUMARATE [SEROquel] 300 mg PO HS 05/23/16 05/23/16 Previous Rx's Medication Instructions Recorded ALPRAZolam [Xanax] 1 mg PO Q8H PRN #15 tablet 04/08/16 Pantoprazole [Protonix] 40 mg PO DAILY #30 tablet. 04/09/16 QUEtiapine [SEROquel] 300 mg PO HS 14 Days 04/09/16 hydrOXYzine PAMOATE [Vistaril] 50 mg PO HS 14 Days 04/09/16 oxyCODONE-APAP 7.5-325MG [Percocet 1 tab PO Q8H PRN #20 tab 04/09/16 7.5-325 mg] cloNIDine HCL [Catapres] 0.1 mg PO BID #10 05/23/16 Allergies Allergy/AdvReac Type Severity Reaction Status Date / Time No Known Allergies Allergy Verified 06/04/16 14:13 Review of Systems ROS Statement: Those systems with pertinent positive or pertinent negative responses have been documented in the HPI. ROS Other: All systems not noted in ROS Statement are negative. Constitutional: Denies: fever Eyes: Denies: eye pain ENT: Denies: ear pain Respiratory: Denies: cough Cardiovascular: Denies: chest pain Endocrine: Denies: fatigue Gastrointestinal: Denies: abdominal pain Genitourinary: Denies: dysuria Musculoskeletal: Denies: back pain Skin: Denies: rash Neurological: Denies: headache Psychiatric: Reports: anxiety. Denies: depression, suicidal thoughts Past Medical History Additional Past Medical History / Comment(s): chronic back pain History of Any Multi-Drug Resistant Organisms: None Reported Past Surgical History: Joint Replacement, Orthopedic Surgery Additional Past Surgical History / Comment(s): left hip, right hip compound fracture Past Anesthesia/Blood Transfusion Reactions: No Reported Reaction Past Psychological History: Anxiety, Bipolar, Depression Smoking Status: Current every day smoker Past Alcohol Use History: None Reported Past Drug Use History: None Reported - Past Family History Mother Family Medical History: No Reported History General Exam Limitations: no limitations General appearance: alert, in no apparent distress Head exam: Present: atraumatic Eye exam: Present: normal appearance, PERRL ENT exam: Present: normal oropharynx Neck exam: Present: normal inspection Respiratory exam: Present: normal lung sounds bilaterally Cardiovascular Exam: Present: regular rate, normal rhythm GI/Abdominal exam: Present: soft. Absent: tenderness Extremities exam: Present: normal inspection Neurological exam: Present: alert Psychiatric exam: Present: normal affect, normal mood Skin exam: Absent: rash Course Vital Signs 06/04/16 14:07 Temperature 98.3 F Pulse Rate 88 Respiratory 20 Rate Blood Pressure 139/99 O2 Sat by Pulse 98 Oximetry Disposition Clinical Impression: Encounter for medication refill, Acute anxiety Disposition: HOME SELF-CARE Condition: Stable Instructions: Anxiety (ED) Additional Instructions: Please talk with your primary care physician regarding her anxiety. There are other medications except Xanax and benzodiazepines they can be used to help with her anxiety. Return for change or worsening symptoms or other concerns. Referrals: Fatoumata Copeland MD [Primary Care Provider] - 1-2 days
== END 2016-06-04 15:27 | disposition home or self-care (01) ==
LOC: EC 14:01
DX: F41.9 Anxiety disorder, unspecified (principal); Z76.0 Encounter for issue of repeat prescription; Z79.899 Other long term (current) drug therapy; F31.9 Bipolar disorder, unspecified; F17.200 Nicotine dependence, unspecified, uncomplicated
CPT/HCPCS: 99283

== ENCOUNTER 2016-07-14 10:32 | Inpatient (IN) | payer MEDICARE, OTHER ==
[2016-07-14] MEDS ORDERED: HYDROmorphone 1 MG/ML 1 ML SYRINGE IVP STA ×2 (11:21→13:18)
[2016-07-14] MEDS ORDERED: SODIUM CHLORIDE 0.9% 1,000 ML IV STA (11:23)
--- NOTE | 2016-07-14 11:23 | ED ---
General Adult HPI - General Chief complaint: Abdominal Pain Stated complaint: Abd pain Time Seen by Provider: 07/14/16 11:13 Source: patient Mode of arrival: wheelchair Limitations: no limitations - History of Present Illness Initial comments: 56-year-old male onset last night of abdominal pain states he feels bloated he tried some antiacid Renzo worse. No fever no chills no vomiting no diarrhea. Had a colonoscopy 2 months ago which was normal. Previous cholecystectomy no urinary frequency urgency dysuria. - Related Data Home Medications Medication Instructions Recorded Confirmed Folic Acid 1 mg PO DAILY 05/23/16 07/14/16 Gabapentin 600 mg PO BID 05/23/16 07/14/16 HYDROcodone/APAP 7.5-325MG [[place] 1 tab PO BID PRN 07/14/16 07/14/16 7.5-325] Previous Rx's Medication Instructions Recorded ALPRAZolam [Xanax] 1 mg PO Q8H PRN #15 tablet 04/08/16 Pantoprazole [Protonix] 40 mg PO DAILY #30 tablet. 04/09/16 QUEtiapine [SEROquel] 300 mg PO HS 14 Days 04/09/16 hydrOXYzine PAMOATE [Vistaril] 50 mg PO HS 14 Days 04/09/16 Allergies Allergy/AdvReac Type Severity Reaction Status Date / Time No Known Allergies Allergy Verified 07/14/16 13:01 Review of Systems ROS Statement: Those systems with pertinent positive or pertinent negative responses have been documented in the HPI. ROS Other: All systems not noted in ROS Statement are negative. Constitutional: Denies: fever, chills Eyes: Denies: eye discharge ENT: Denies: ear pain, throat pain Respiratory: Denies: cough, dyspnea Cardiovascular: Denies: chest pain Endocrine: Denies: fatigue Gastrointestinal: Denies: abdominal pain, nausea, vomiting Genitourinary: Denies: urgency, dysuria, frequency Skin: Denies: rash Past Medical History Additional Past Medical History / Comment(s): chronic back pain History of Any Multi-Drug Resistant Organisms: None Reported Past Surgical History: Joint Replacement, Orthopedic Surgery Additional Past Surgical History / Comment(s): left hip, right hip compound fracture Past Anesthesia/Blood Transfusion Reactions: No Reported Reaction Past Psychological History: Anxiety, Bipolar, Depression Smoking Status: Current every day smoker Past Alcohol Use History: None Reported Past Drug Use History: None Reported - Past Family History Mother Family Medical History: No Reported History General Exam Limitations: no limitations General appearance: alert, in no apparent distress Head exam: Present: atraumatic Eye exam: Present: PERRL, EOMI ENT exam: Present: normal oropharynx, mucous membranes moist Neck exam: Present: normal inspection Respiratory exam: Present: normal lung sounds bilaterally Cardiovascular Exam: Present: regular rate, normal heart sounds GI/Abdominal exam: Present: soft, tenderness (Diffuse tenderness with some rebound and guarding generally), normal bowel sounds Neurological exam: Present: alert, CN II-XII intact Psychiatric exam: Present: normal affect, normal mood Skin exam: Present: warm, dry Course Vital Signs 07/14/16 07/14/16 10:47 14:10 Temperature 97.0 F L 98.7 F Pulse Rate 74 91 Respiratory 20 16 Rate Blood Pressure 129/77 125/74 O2 Sat by Pulse 98 97 Oximetry - Reevaluation(s) Reevaluation #1: 07/14/16 13:18 Chest x-ray is compatible with a free air flat and upright looks like obstruction with free air CAT scan is been ordered. Medical Decision Making - Medical Decision Making CT shows a perforation probably the source is mid transverse colon. We have spoken to Dr. Gonzalez she will see the patient. We'll place the NG tube Zosyn has been ordered. - Lab Data Result diagrams: 07/14/16 12:06 07/14/16 12:06 Lab Results 07/14/16 07/14/16 07/14/16 Range/Units 12:06 12:06 12:06 WBC 9.4 (3.8-10.6) k/uL RBC 5.33 (4.30-5.90) m/uL Hgb 16.1 (13.0-17.5) gm/dL Hct 48.7 (39.0-53.0) % MCV 91.5 (80.0-100.0) fL MCH 30.2 (25.0-35.0) pg MCHC 33.0 (31.0-37.0) g/dL RDW 14.0 (11.5-15.5) % Plt Count 243 (150-450) k/uL Neutrophils % (Manual) 89.0 % Band Neutrophils % 4.0 % Lymphocytes % (Manual) 4.0 % Monocytes % (Manual) 3.0 % Neutrophils # (Manual) 8.7 H (1.3-7.7) k/uL Lymphocytes # (Manual) 0.4 L (1.0-4.8) k/uL Monocytes # (Manual) 0.3 (0-1.0) k/uL Nucleated RBCs 0 (0-0) /100 WBC Polychromasia Present Sodium 145 (137-145) mmol/L Potassium 4.3 (3.5-5.1) mmol/L Chloride 103 (98-107) mmol/L Carbon Dioxide 26 (22-30) mmol/L Anion Gap 16 mmol/L BUN 18 (9-20) mg/dL Creatinine 0.99 (0.66-1.25) mg/dL Est GFR (MDRD) Af Amer >60 (>60 ml/min/1.73 sqM) Est GFR (MDRD) Non-Af >60 (>60 ml/min/1.73 sqM) Glucose 83 (74-99) mg/dL Calcium 9.8 (8.4-10.2) mg/dL Total Bilirubin 0.8 (0.2-1.3) mg/dL AST 24 (17-59) U/L ALT 18 L (21-72) U/L Alkaline Phosphatase 64 (38-126) U/L Total Protein 8.0 (6.3-8.2) g/dL Albumin 4.6 (3.5-5.0) g/dL Amylase 59 (30-110) U/L Lipase 69 (23-300) U/L Urine Color Yellow Urine Appearance Clear (Clear) Urine pH 6.5 (5.0-8.0) Ur Specific [place] 1.021 (1.001-1.035) Urine Protein Trace H (Negative) Urine Glucose (UA) Negative (Negative) Urine Ketones Negative (Negative) Urine Blood Negative (Negative) Urine Nitrite Negative (Negative) Urine Bilirubin Negative (Negative) Urine Urobilinogen <2.0 (<2.0) mg/dL Ur Leukocyte Esterase Negative (Negative) 07/14/16 14:52 EKG 07/14/2016 1448 ventricular rate 93 bpm, DC interval 130 ms, QRS duration 80 ms, normal sinus rhythm nonspecific ST-T changes no acute changes. - Radiology Data Radiology results: report reviewed Chest x-ray is unremarkable except for free air under the diaphragm, same with the pneumoperitoneum on the abdominal x-ray CT shows free air probable perforation distal transverse colon Critical Care Time Critical Care Time: Yes Total Critical Care Time: 30 Disposition Clinical Impression: Perforation bowel Disposition: ADMITTED IP TO THIS [facility] Condition: Serious Referrals: Fatoumata Copeland MD [Primary Care Provider] - 1-2 days Time of Disposition: 14:33
[2016-07-14 12:31] LABS: Appearance,Urine Clear (Clear); Bilirubin,Urine Negative (Negative); Glucose,Urine (UA) Negative (Negative); Ketones,Urine Negative (Negative); Leukocyte Esterase,Urine Negative (Negative); Nitrite,Urine Negative (Negative); PH, Urine 6.5 (5.0-8.0); Protein,Urine Trace (Negative); Specific Gravity,Urine 1.021 (1.001-1.035); UA Billing (MACRO vs. MICRO) CHEM; Urobilinogen,Urine <2.0 mg/dL (<2.0)
[2016-07-14 12:36] LABS: CH 30.4; CHCM 33.4; HCT 48.7 % (39.0-53.0); HDW 2.34; HGB 16.1 gm/dL (13.0-17.5); Immature Gran Flag Moderate; MCH 30.2 pg (25.0-35.0); MCV 91.5 fL (80.0-100.0); Mean Platelet Volume 6.4; RBC 5.33 m/uL (4.30-5.90); WBC 9.4 k/uL (3.8-10.6); WBC (Perox) 8.89
[2016-07-14 12:46] LABS: Add Differential Manual Differential
[2016-07-14 12:48] LABS: ALT 18 U/L (21-72); AST 24 U/L (17-59); Alkaline Phosphatase 64 U/L (38-126); Amylase 59 U/L (30-110); Anion Gap 16 mmol/L; Blood Urea Nitrogen 18 mg/dL (9-20); Calcium 9.8 mg/dL (8.4-10.2); Carbon Dioxide 26 mmol/L (22-30); Chloride 103 mmol/L (98-107); Glucose 83 mg/dL (74-99); Non-African American GFR(MDRD) >60 (>60 ml/min/1.73 sqM); Potassium 4.3 mmol/L (3.5-5.1); Sodium 145 mmol/L (137-145); Total Bilirubin 0.8 mg/dL (0.2-1.3)
[2016-07-14 12:49] LABS: Nucleated Red Blood Cells 0 /100 WBC (0-0); Polychromasia Present; Total Cells Counted 100
[2016-07-14] MEDS ORDERED: RX INFO: IV CONTRAST WAS GIVEN 1 EACH MISC MISCELLANE PRN (12:55)
--- NOTE | 2016-07-14 13:06 | XR ---
EXAMINATION TYPE: XR chest 2V DATE OF EXAM: 07/14/2016 12:36 PM COMPARISON: 04/30/2016 INDICATION: Abdomen pain TECHNIQUE: Single frontal view of the chest is obtained. FINDINGS: The heart size is normal. The pulmonary vasculature is normal. The lungs are clear. There is a right-sided pneumoperitoneum. Report was immediately called to emergency room physician by Dr. Chavarria by telephone 1300 hours 07/14/2016. IMPRESSION: 1. Pneumoperitoneum. 2. No acute pulmonary process.
--- NOTE | 2016-07-14 13:18 | XR ---
EXAMINATION TYPE: XR abdomen 2V DATE OF EXAM: 07/14/2016 1:12 PM COMPARISON: NONE INDICATION: Abdomen pain TECHNIQUE: Single view abdomen upright view FINDINGS: There is a normal bowel gas pattern. Psoas margins are normal. No organomegaly is present. Scoliosis is present. Surgical clips in right upper quadrant. Pneumoperitoneum is evident. ER is awar e of the finding. IMPRESSION: 1. Pneumoperitoneum
[2016-07-14] MEDS ORDERED: PIPERACILLIN-TAZOBACTAM 3.375 GM in DEXTROSE/WATER 1 50ML.BAG IVPB STA (13:21)
--- NOTE | 2016-07-14 14:25 | CT ---
EXAMINATION TYPE: CT abdomen pelvis w con DATE OF EXAM: 07/14/2016 1:59 PM COMPARISON: 07/04/2010 INDICATION: Bowel performation, pneumoperitoneum DLP: 521.10 mGycm, Automated exposure control for dose reduction was used. CONTRAST: 100 ml mL of Omnipaque 300. Study performed without Oral Contrast TECHNIQUE: Axial images were obtained from above the diaphragm to the pubic rami in the axial plane a t 5 mm thick sections. Reconstructed images are reviewed on the computer in the coronal plane. FINDINGS: Limited CT sections are obtained the lung bases. The lung bases are clear. Very subtle pneumomedias tinum is evident image [address] ABDOMEN: Pneumoperitoneum is readily apparent. There may be some inflammatory change adjacent to t he distal transverse colon. Few scattered punctate areas of air may be present. This is a possible so urce for the pneumoperitoneum. Liver: Normal Spleen: Normal Pancreas: Normal Adrenal glands: The adrenal glands are normal. Gallbladder: Surgically absent Kidneys: No masses are evident. No hydronephrosis is present. No cysts are present. Delayed images were obtained through the kidneys, which remain unremarkable. Aorta: Vascular calcification is within the aorta. Inferior vena cava: Normal. CT PELVIS: Beam hardening artifact from left hip prosthesis causing limitation. There is degenerative change of the right hip Inflammatory changes are adjacent to the distal transverse colon. Free air may be adjacent. This coul d be a source for the pneumoperitoneum. Fluid-filled colon is present. Nonspecific small bowel loops are present. Appendix: Normal as visualized. Urinary bladder: Normal. Genitourinary structures: Prostate is very limited evaluation. Osseous structures: Facet changes are present. No suspicious lytic or sclerotic areas are evident IMPRESSIONS: 1. Pneumoperitoneum. The most likely source would be the distal transverse colon with mild inflammat ory changes present at that level.
[2016-07-14] MEDS ORDERED: NALOXONE 0.4 MG/ML 1 ML VIAL IV PRN (14:51)
--- NOTE | 2016-07-14 14:52 | P.GSHP ---
History of Present Illness H&P Date: 07/14/16 Chief Complaint: Abdominal pain The patient's a 56-year-old man who began having abdominal pain earlier this morning. He had a TV dinner and some ice cream about midnight and then went to sleep. When he awoke this morning he was having severe pain and having difficulty moving in bed. No nausea or vomiting. No previous episodes of anything like this in the past. Workup in the emergency department showed evidence of perforated viscus. He did have a colonoscopy [facility] earlier this year and had some polyps removed. He does not recall whether he was told he had diverticulosis. - Review of Systems All systems: negative Past Medical History Additional Past Medical History / Comment(s): chronic back pain, anxiety disorder History of Any Multi-Drug Resistant Organisms: None Reported Past Surgical History: Cholecystectomy (Laparoscopic), Joint Replacement, Orthopedic Surgery Additional Past Surgical History / Comment(s): left hip, right hip compound fracture Past Anesthesia/Blood Transfusion Reactions: No Reported Reaction Past Psychological History: Anxiety, Bipolar, Depression Smoking Status: Current every day smoker Past Alcohol Use History: None Reported Past Drug Use History: None Reported - Past Family History Mother Family Medical History: No Reported History Medications and Allergies Home Medications Medication Instructions Recorded Confirmed Type Folic Acid 1 mg PO DAILY 05/23/16 07/14/16 History Gabapentin 600 mg PO BID 05/23/16 07/14/16 History HYDROcodone/APAP 7.5-325MG [Onward 1 tab PO BID PRN 07/14/16 07/14/16 History 7.5-325] Allergies Allergy/AdvReac Type Severity Reaction Status Date / Time No Known Allergies Allergy Verified 07/14/16 13:01 Surgical - Exam Osteopathic Statement: *. No significant issues noted on an osteopathic structural exam other than those noted in the History and Physical/Consult. Vital Signs Temp Pulse Resp BP Pulse Ox 97.0 F L 74 20 129/77 98 07/14/16 10:47 07/14/16 10:47 07/14/16 10:47 07/14/16 10:47 07/14/16 10:47 - General Mild distress and discomfort with moving well developed, well nourished - Eyes normal ocular movement - ENT no hearing loss - Neck trachea midline, no lymphadectomy - Respiratory normal respiratory effort, clear to auscultation - Cardiovascular Rhythm: regular - Abdomen Abdomen: soft, tender (Diffuse), bowel sounds, guarding (Voluntary), rebound Hernia: no umbilical - Psychiatric oriented to time, oriented to person, oriented to place, speech is normal, memory intact Results - Labs 07/14/16 12:06 07/14/16 12:06 Abnormal Lab Results - Last 24 Hours (Table) 07/14/16 07/14/16 07/14/16 Range/Units 12:06 12:06 12:06 Neutrophils # (Manual) 8.7 H (1.3-7.7) k/uL Lymphocytes # (Manual) 0.4 L (1.0-4.8) k/uL ALT 18 L (21-72) U/L Urine Protein Trace H (Negative) Diabetes panel 07/14/16 Range/Units 12:06 Sodium 145 (137-145) mmol/L Potassium 4.3 (3.5-5.1) mmol/L Chloride 103 (98-107) mmol/L Carbon Dioxide 26 (22-30) mmol/L BUN 18 (9-20) mg/dL Creatinine 0.99 (0.66-1.25) mg/dL Glucose 83 (74-99) mg/dL Calcium 9.8 (8.4-10.2) mg/dL AST 24 (17-59) U/L ALT 18 L (21-72) U/L Alkaline Phosphatase 64 (38-126) U/L Total Protein 8.0 (6.3-8.2) g/dL Albumin 4.6 (3.5-5.0) g/dL Calcium panel 07/14/16 Range/Units 12:06 Calcium 9.8 (8.4-10.2) mg/dL Albumin 4.6 (3.5-5.0) g/dL Pituitary panel 07/14/16 Range/Units 12:06 Sodium 145 (137-145) mmol/L Potassium 4.3 (3.5-5.1) mmol/L Chloride 103 (98-107) mmol/L Carbon Dioxide 26 (22-30) mmol/L BUN 18 (9-20) mg/dL Creatinine 0.99 (0.66-1.25) mg/dL Glucose 83 (74-99) mg/dL Calcium 9.8 (8.4-10.2) mg/dL Adrenal panel 07/14/16 Range/Units 12:06 Sodium 145 (137-145) mmol/L Potassium 4.3 (3.5-5.1) mmol/L Chloride 103 (98-107) mmol/L Carbon Dioxide 26 (22-30) mmol/L BUN 18 (9-20) mg/dL Creatinine 0.99 (0.66-1.25) mg/dL Glucose 83 (74-99) mg/dL Calcium 9.8 (8.4-10.2) mg/dL Total Bilirubin 0.8 (0.2-1.3) mg/dL AST 24 (17-59) U/L ALT 18 L (21-72) U/L Alkaline Phosphatase 64 (38-126) U/L Total Protein 8.0 (6.3-8.2) g/dL Albumin 4.6 (3.5-5.0) g/dL - Imaging CT scan - abdomen: report reviewed, image reviewed Assessment and Plan (1) Perforated viscus Status: Acute Plan: I discussed the findings with the patient. This is likely a perforated diverticulitis or ulcer. I recommended a laparotomy with either oversew of ulcer or possibly colon resection and diverting colostomy. The procedures and complications were discussed. Questions were encouraged and answered. I'll given prophylactic antibiotics, DVT and ulcer prophylaxis. Further recommendations to follow.
[2016-07-14] MEDS ORDERED: MIDAZOLAM 2 MG/2 ML VIAL ONE (15:42)
[2016-07-14] MEDS ORDERED: GLYCOPYRROLATE 0.2 MG/ML 2 ML VIAL ONE (15:42)
[2016-07-14] MEDS ORDERED: fentaNYL (PF) 50 MCG/ML 2 ML AMP ONE (15:42)
[2016-07-14] MEDS ORDERED: ONDANSETRON 4 MG/2 ML VIAL ONE (15:42)
[2016-07-14] MEDS ORDERED: IV FLUID CONTINUATION 1,000 ML IV ONE (15:42)
[2016-07-14] MEDS ORDERED: NEOSTIGMINE 1 MG/ML 10 ML VIAL ONE (15:42)
[2016-07-14] MEDS ORDERED: LIDOCAINE 1% INJ 10MG/ML (20 ML MDV) ONE (15:42)
[2016-07-14] MEDS ORDERED: ROCURONIUM BROMIDE 10 MG/ML 10 ML VIAL IV ONE (15:42)
[2016-07-14] MEDS ORDERED: PROPOFOL 10 MG/ML 20 ML VIAL IV ONE (15:42)
[2016-07-14] MEDS ORDERED: SUCCINYLCHOLINE CHLORIDE VIAL 200 MG/10 ML VIAL IV ONE (15:42)
[2016-07-14] MEDS ORDERED: LACTATED RINGERS 1,000 ML IV ONE (16:21)
[2016-07-14] MEDS: HYDROmorphone 1 MG/ML 1 ML SYRINGE IVP ONE ×2 (16:36→17:41)
[2016-07-14] MEDS ORDERED: ONDANSETRON 4 MG/2 ML VIAL IVP PRN (17:05)
[2016-07-14] MEDS ORDERED: METOCLOPRAMIDE 5 MG/ML 2 ML VIAL IVP PRN (17:05)
--- NOTE | 2016-07-14 17:05 | P.OP ---
Date of Procedure: 07/14/16 Preoperative Diagnosis: Perforated viscus Postoperative Diagnosis: Perforation transverse colon Procedure(s) Performed: Exploratory laparotomy with resection transverse colon Anesthesia: MEGAN Surgeon: Monica Gonzalez Estimated Blood Loss (ml): 150 Pathology: other (Transverse colon) Condition: stable Disposition: PACU Indications for Procedure: The patient presented with abdominal pain. Workup including computed tomography scan showed perforation with pneumoperitoneum. There was the suggestion of inflammation in the transverse colon. Operative Findings: Small perforation transverse colon Description of Procedure: The patient was taken the operative suite where he is prepped and draped in usual sterile manner under a general endotracheal anesthetic. The abdomen was entered through a upper midline incision. Small bleeding points were controlled with electrocautery. The abdominal and pelvic contents were examined with findings of a small perforation in the mid transverse colon. There was no significant stool spillage. There was a little inflammatory fluid. Decision was made to perform a resection with anastomosis. The gastrocolic omentum was taken down with the LigaSure. A small opening was made in the mesentery of the proximal transverse colon. The mesentery was then taken down with LigaSure. The colon was then transected with a MCKINLEY stapler proximal and distal to the perforation. Specimen was passed off. After examining the 2 ends it appeared an end to end anastomosis would lay without tension. Bowel clamps were placed proximally and distally. Seromuscular sutures of 3-0 Vicryl were then placed along the posterior wall. The staple line was then resected. The staple line was then removed with Metzenbaums. The posterior wall was then approximated using 3-0 Vicryl sutures. The anterior wall was similarly closed with 3-0 Vicryl sutures. The corners and anterior wall were then approximated in a Lembert manner. There was a good anastomosis to finger palpation. Gloves were changed. The abdomen was then copiously irrigated and aspirated. The incision was made and a drain was placed. The fascia and peritoneum were closed with 1 PDS. The skin was loosely approximated with viviana. Aquacel Ag packing was placed in between the viviana. A dressing was applied. He tolerated the procedure without difficulty and was taken recovery room in satisfactory condition. According to or personnel all counts were correct.
[2016-07-14] MEDS: NICOTINE 14MG/24HR PATCH TRANSDERM SCH (18:12)
[2016-07-14] MEDS: D5-0.45% NACL WITH KCL 20MEQ/L 1,000 ML IV SCH (18:12)
[2016-07-14] MEDS: metroNIDAZOLE-NS PMX 500 MG in SALINE 1 100ML.BAG IVPB SCH ×2 (18:35→23:16)
[2016-07-14] MEDS: LORazepam 2 MG/ML SYRINGE IV PRN (18:39)
[2016-07-14] MEDS: HYDROmorphone 1 MG/ML 1 ML SYRINGE IVP PRN ×2 (20:10→23:22)
[2016-07-15] MEDS: D5-0.45% NACL WITH KCL 20MEQ/L 1,000 ML IV SCH ×3 (00:46→20:30)
[2016-07-15] MEDS: LORazepam 2 MG/ML SYRINGE IV PRN ×5 (00:47→20:30)
[2016-07-15] MEDS: PIPERACILLIN-TAZOBACTAM 3.375 GM in DEXTROSE/WATER 1 50ML.BAG IVPB SCH ×3 (00:47→16:08)
[2016-07-15] MEDS: HYDROmorphone 1 MG/ML 1 ML SYRINGE IVP PRN ×5 (02:15→15:02)
[2016-07-15] MEDS: PANTOPRAZOLE 40 MG/10 ML VIAL IV SCH (07:56)
[2016-07-15] MEDS: NICOTINE 14MG/24HR PATCH TRANSDERM SCH (07:56)
[2016-07-15] MEDS: metroNIDAZOLE-NS PMX 500 MG in SALINE 1 100ML.BAG IVPB SCH ×3 (07:56→23:19)
[2016-07-15 09:07] LABS: Basophils % (A) 0 %; CH 29.7; Eosinophils % (A) 1 %; HCT 39.5 % (39.0-53.0); HDW 2.36; HGB 13.3 gm/dL (13.0-17.5); Luc # (Auto) 0.12; Luc % (Auto) 1; Lymphocytes % (A) 11 %; MCH 30.3 pg (25.0-35.0); MCHC 33.7 g/dL (31.0-37.0); MCV 90.1 fL (80.0-100.0); Mean Platelet Volume 6.6; Monocytes # (A) 0.2 k/uL (0-1.0); Monocytes % (A) 3 %; Neutrophils # (A) 7.3 k/uL (1.3-7.7); Neutrophils % (A) 84 %; RBC 4.39 m/uL (4.30-5.90); RDW 13.6 % (11.5-15.5); WBC 8.7 k/uL (3.8-10.6); WBC (Perox) 8.93
[2016-07-15 09:36] LABS: ALT 21 U/L (21-72); AST 24 U/L (17-59); Alkaline Phosphatase 50 U/L (38-126); Anion Gap 8 mmol/L; Blood Urea Nitrogen 14 mg/dL (9-20); Calcium 8.4 mg/dL (8.4-10.2); Carbon Dioxide 25 mmol/L (22-30); Chloride 105 mmol/L (98-107); Glucose 120 mg/dL (74-99); Non-African American GFR(MDRD) >60 (>60 ml/min/1.73 sqM); Potassium 4.2 mmol/L (3.5-5.1); Sodium 138 mmol/L (137-145); Total Bilirubin 0.7 mg/dL (0.2-1.3)
--- NOTE | 2016-07-15 15:53 | CONS ---
DATE OF CONSULTATION: REASON FOR CONSULTATION: Advice regarding anxiety, bipolar depression, multiple medical issues requested by Dr. Gonzalez. HISTORY OF PRESENT ILLNESS: This 50-year-old gentleman with a past medical history of chronic back pain, DJD, anxiety, bipolar depression, nicotine dependence, being followed by Dr. Copeland in the outpatient setting admitted after complaining of abdominal pain. The patient had features of perforated viscus in the CAT scan and Dr. Gonzalez performed exploratory laparotomy and resection of transverse colon with perforation and the patient being closely monitored. NG tube is inserted at this time. There is no history of any fever, rigors or chills. No history of headache, loss of consciousness or seizures. PAST MEDICAL HISTORY: History of chronic back pain. History of anxiety with bipolar depression and degenerative joint disease. MEDICATIONS prior to admission include: 1. Vistaril 50 mg q.h.s. 2. Seroquel 300 mg q.h.s. 3. Bassett 7.5 b.i.d. p.r.n. 4. Protonix 40 mg daily. 5. Gabapentin 600 mg p.o. b.i.d. 6. Folic acid 1 mg p.o. daily. 7. Xanax 1 mg p.o. q8. ALLERGIES: None. FAMILY HISTORY: No history of heart disease or strokes in the family. SOCIAL HISTORY: History of smoking. No history of alcohol intake. REVIEW OF SYSTEMS: ENT: No diminish hearing, diminished vision. CARDIOVASCULAR: No angina or palpitations. RESPIRATORY: As mentioned earlier. GASTROINTESTINAL: As mentioned earlier. GENITOURINARY: No dysuria. Nervous system: No numbness, weakness. ALLERGY/IMMUNOLOGY: No asthma or hayfever. MUSCULOSKELETAL: As mentioned earlier. HEMATOLOGY/ONCOLOGY: No history of anemia. ENDOCRINE: No history of diabetes or hypothyroidism. CONSTITUTIONAL: As mentioned earlier. DERMATOLOGY: Negative. RHEUMATOLOGY: Negative. PSYCHIATRY: As mentioned earlier. PHYSICAL EXAMINATION: Alert and oriented times three. Pulse 88. Blood pressure 125/77. Respiratory rate 16. Temperature 99.2, pulse ox 97% on 2 L. HEENT: Conjunctivae normal. Oral mucosa moist. NECK: No jugular venous distention. No carotid bruit. No lymph node enlargement. CARDIOVASCULAR: S1, S2 muffled. No S3, no S4. RESPIRATORY: Breath sounds diminished at the bases. A few rhonchi. No crackles. ABDOMEN: Soft, status post surgery. NG tube in situ, draining bilious fluid. Otherwise, bowel sounds diminished. Diffusely tender. No guarding. No rigidity. Legs: No edema. No swelling. Nervous system: Higher functions as mentioned earlier. Moves all four limbs. No focal motor deficits. LYMPHATICS: No lymph nodes palpable in the neck, axillae or groin. SKIN: No ulcer, rash or bleeding. LABS: CBC within normal limits. Otherwise, CMP ALT 18. UA noted. ASSESSMENT: 1. Acute perforation of the transverse colon status post exploratory laparotomy with resection of the transverse colon. 2. History of chronic back pain. 3. History of degenerative joint disease. 4. History of anxiety bipolar depression, not otherwise specified. 5. History nicotine dependence. RECOMMENDATIONS AND DISCUSSION: In this 56-year-old gentleman who presented with multiple complex medical issues, we will monitor the patient closely. Continue with the current medications. Continue symptomatic treatment. Follow the patient closely with you. DVT prophylaxis. Broad-spectrum IV antibiotics. Ativan p.r.n. and we will follow the patient closely with you. The patient may be asked to follow with Dr. Copeland closely after discharge. Thank you Dr. Gonzalez for letting us participate in the care of this patient.
[2016-07-15] MEDS ORDERED: NALOXONE 0.4 MG/ML 1 ML VIAL IV PRN (16:31)
[2016-07-15] MEDS: HYDROmorphone PCA 5 MG/25 ML SYRINGE IV PRN (17:07)
--- NOTE | 2016-07-15 23:42 | PN ---
DATE OF SERVICE: 07/15/2016 This 56-year-old gentleman who was admitted with acute perforation and peritonitis is being closely monitored. At this time the patient is on broad-spectrum IV antibiotics. The patient had surgery. The patient has an NG tube. He is mildly confused. Past medical history reviewed. Review of systems could not be taken. Current medications are reviewed and include: 1. Dilaudid 0.5 mg q.3 p.r.n. 2. Ativan p.r.n. 3. Flagyl 500 mg daily. 4. Narcan. 5. Habitrol 14 daily. 6. Zosyn 3.375 IV q.6. 7. P.r.n. medications. 8. IV fluids. PHYSICAL EXAMINATION: Patient is alert and oriented x2. Pulse 81, blood pressure 125/83, respiration 20, temperature 100.2, pulse ox 96% on 2 L. HEENT: Conjunctivae normal. Oral mucosa moist. NECK: No jugular venous distention. No carotid bruit. No lymph node enlargement. CARDIOVASCULAR SYSTEM: S1, S2 muffled. RESPIRATORY: Breath sounds diminished at the bases. A few scattered rhonchi and crackles. ABDOMEN: Soft. Status post surgery. LEGS: No edema. No swelling. NERVOUS SYSTEM: No focal deficit. LABS: CBC within normal limits. Glucose 120. Albumin is 3.3. ASSESSMENT: 1. Acute perforation of the transverse colon, status post exploratory laparotomy with peritonitis with resection of the transverse colon. 2. History of change in mental status with metabolic encephalopathy, multifactorial, possibly medication-induced. 3. History of chronic back pain. 4. History of degenerative joint disease. 5. Mild fever. 6. History of anxiety, bipolar, depression not otherwise specified. 7. History of nicotine dependence. 8. Increased random blood sugar. 9. Hypoalbuminemia with mild to moderate protein-calorie malnutrition. 10. FULL CODE. RECOMMENDATIONS AND DISCUSSION: In this 56-year-old gentleman who presented with multiple complex medical issues, I would recommend continuing current medications, continuing with symptomatic treatment, broad-spectrum IV antibiotics, DVT prophylaxis. We will follow the patient closely with you. Patient may be asked to follow up with Dr. Copeland after discharge. See orders for further details. Further recommendations to follow.
[2016-07-16] MEDS: PIPERACILLIN-TAZOBACTAM 3.375 GM in DEXTROSE/WATER 1 50ML.BAG IVPB SCH ×3 (01:00→19:17)
[2016-07-16] MEDS: LORazepam 2 MG/ML SYRINGE IV PRN ×5 (01:17→23:56)
[2016-07-16] MEDS: D5-0.45% NACL WITH KCL 20MEQ/L 1,000 ML IV SCH ×3 (05:43→18:25)
[2016-07-16] MEDS: metroNIDAZOLE-NS PMX 500 MG in SALINE 1 100ML.BAG IVPB SCH ×3 (09:21→23:49)
[2016-07-16] MEDS: PANTOPRAZOLE 40 MG/10 ML VIAL IV SCH (09:22)
[2016-07-16] MEDS: NICOTINE 14MG/24HR PATCH TRANSDERM SCH (09:22)
[2016-07-16 13:51] VITALS: BMI 22.5
--- NOTE | 2016-07-16 15:11 | P.PN ---
Subjective Principal diagnosis: Transverse colon perforation The patient is postop day 2 transverse colectomy for a colon perforation. Pain is controlled with [employer]GR[employer]. He's ambulated in the halls. His passed a small amount of flatus. Objective - Vital Signs Vital signs: Vital Signs Temp 98.1 F 07/16/16 07:00 Pulse 80 07/16/16 07:00 Resp 20 07/16/16 07:00 BP 140/89 07/16/16 07:00 Pulse Ox 96 07/16/16 07:00 Intake & Output 07/15/16 07/16/16 07/16/16 18:59 06:59 18:59 Output Total 930 1150 15 Balance -930 -1150 -15 Weight 81.647 kg Output: Gastric Drainage 400 0 Drainage 30 15 Left Lower Abdomen 30 15 Urine 500 1150 Other: Voiding Method Indwelling Catheter Indwelling Catheter - Constitutional General appearance: Present: cooperative, no acute distress - Respiratory Respiratory: bilateral: CTA, diminished (At the bases), negative: rhonchi, wheezing - Cardiovascular Rhythm: regular - Gastrointestinal General gastrointestinal: Present: decreased bowel sounds, soft Localized gastrointestinal: surgical scar: midline (Dressing is intact clean and dry. VIRA is serosanguineous) - Labs CBC & Chem 7: 07/15/16 08:05 07/15/16 08:05 Assessment and Plan (1) Perforated viscus Status: Acute Plan: The patient has a low-grade temperature. This is likely due to some atelectasis. Encourage activity and incentive spirometry. The NG tube will be clamped for 6 hours and if he is able to tolerate that it will be discontinued this afternoon. Then we can start oral medications. Her dressing slowly.
[2016-07-16] MEDS: FOLIC ACID 1 MG TAB PO SCH (16:38)
--- NOTE | 2016-07-16 17:33 | P.PN ---
Subjective Date of service 07/16/2016. Progress note being dictated for Dr. Dumont. Interval history: This is a 56-year-old gentleman admitted with acute: Perforation, peritonitis, status post transverse colectomy and multiple other medical issues. Maintained on broad-spectrum IV antibiotics. Earlier this morning patient pulled out his NG tube. No flatus, no bowel movement, abdomen nondistended. Denies any nausea or vomiting. Pain controlled on WINDOWS APPLICATION ADMINISTRATOR. T-max 100.8, normal WBC. Objective - Vital Signs Vital signs: Vital Signs Temp 98.1 F 07/16/16 07:00 Pulse 80 07/16/16 07:00 Resp 20 07/16/16 07:00 BP 140/89 07/16/16 07:00 Pulse Ox 96 07/16/16 07:00 Intake & Output 07/15/16 07/16/16 07/16/16 18:59 06:59 18:59 Intake Total 1050 Output Total 930 1150 15 Balance -930 -1150 1035 Weight 81.647 kg Intake: Intake, IV Titration 1050 Amount D5-0.45% NaCl with KCl 1000 20Meq/l 1,000 ml @ 125 mls/hr IV .Q8H TIEN Rx#: [id number] Piperacillin-Tazobactam 3 50 .375 gm In Dextrose/Water 1 50ml.bag @ 12.5 mls/hr IVPB Q8HR TIEN Rx#: [id number] Output: Gastric Drainage 400 0 Drainage 30 15 Left Lower Abdomen 30 15 Urine 500 1150 Other: Voiding Method Indwelling Catheter Indwelling Catheter - Exam PHYSICAL EXAM: VITAL SIGNS: As above GENERAL: [Sitting up in bed, no acute distress] HEENT: [Pupils equal conjunctiva normal.] NECK: [Supple, no JVD] RESPIRATORY EFFORT:[Normal] LUNGS: [Bilateral bases diminished, scattered rhonchi and fine crackles] CARDIOVASCULAR[regular S1 and S2, no murmurs rubs or gallops] GI: [Abdomen soft, status post surgery, hypoactive bowel sounds, abdominal binder present PSYCH: [Alert and oriented -2-3, mood and affect normal.] NEURO: No focal deficits, moves all 4 extremities, strength and sensation grossly intact - Labs CBC & Chem 7: 07/15/16 08:05 07/15/16 08:05 Assessment and Plan Plan: 1. [Acute perforation of the transverse colon with peritonitis, status post exploratory laparotomy with resection of the transverse colon]. 2. [Change in mental status, Acute metabolic encephalopathy, possibly medication induced,]. 3. [Chronic back pain]. 4. [Degenerative joint disease]. 5. [History of anxiety, bipolar, depression, not otherwise specified 6. [Ongoing nicotine dependence]. 7. [Hypoalbuminemia with mild to moderate protein calorie malnutrition]. Plan: Continue on current medication regime , antibiotics, monitoring and symptomatic treatment. GI-Protonix and DVT-compression stockings and sequential 's prophylaxis in place. Patient has been advised to increase ambulation in the hallway as tolerated. Pancultured. Follow closely with surgery. Further recommendations to follow. The impression and plan of care has been dictated as directed. : I performed a H&P examination of this patient and discussed the same with the dictator. I agree with the dictator's note. Any additional findings/opinions/ etc. will be noted.
[2016-07-16] MEDS: HYDROmorphone PCA 5 MG/25 ML SYRINGE IV PRN (19:17)
[2016-07-16] MEDS: GABAPENTIN 300 MG CAP PO SCH (20:10)
[2016-07-16] MEDS: QUEtiapine 100 MG TAB PO SCH (20:10)
[2016-07-16] MEDS: hydrOXYzine PAMOATE 25 MG CAP PO SCH (20:14)
--- NOTE | 2016-07-16 21:41 | XR ---
EXAMINATION TYPE: XR chest 2V DATE OF EXAM: 07/16/2016 6:13 PM COMPARISON: July 14, 2016 HISTORY: Fevers, postoperative TECHNIQUE: Frontal and lateral views of the chest are obtained. FINDINGS: There is no focal pulmonary opacity, pleural effusion, or pneumothorax seen. The cardiac silhouette size is within normal limits. The osseous structures are intact. Tiny volume of pneumoperitoneum is identified, much less than seen on the previous study of 2 days ag o. IMPRESSION: 1. NO ACUTE CHEST PROCESS. 2. TINY VOLUME OF PNEUMOPERITONEUM PRESENTLY.
--- NOTE | 2016-07-16 22:50 | PN ---
DATE OF SERVICE: 07/16/2016 This 56-year-old gentleman who was admitted after acute perforation of transverse colon is being closely monitored. Seen and evaluated the patient along with the nurse practitioner. Please refer to the nurse practitioner's notes and impressions documented as a scribe for further information. Further recommendations to follow.
[2016-07-17 00:28] LABS: Appearance,Urine Clear (Clear); Bilirubin,Urine Negative (Negative); Glucose,Urine (UA) Negative (Negative); Ketones,Urine 1+ (Negative); Leukocyte Esterase,Urine Trace (Negative); Nitrite,Urine Negative (Negative); PH, Urine 7.5 (5.0-8.0); Particle Count 462; Protein,Urine Trace (Negative); RBC,Urine 6 /hpf (0-5); Specific Gravity,Urine 1.006 (1.001-1.035); UA Billing (MACRO vs. MICRO) MICRO; Urobilinogen,Urine <2.0 mg/dL (<2.0); WBC,Urine 5 /hpf (0-5)
[2016-07-17] MEDS: PIPERACILLIN-TAZOBACTAM 3.375 GM in DEXTROSE/WATER 1 50ML.BAG IVPB SCH ×3 (00:58→15:57)
[2016-07-17] MEDS: D5-0.45% NACL WITH KCL 20MEQ/L 1,000 ML IV SCH ×3 (00:59→15:55)
[2016-07-17] MEDS: PANTOPRAZOLE 40 MG/10 ML VIAL IV SCH (07:38)
[2016-07-17] MEDS: NICOTINE 14MG/24HR PATCH TRANSDERM SCH (07:38)
[2016-07-17] MEDS: ALPRAZolam 0.5 MG TAB PO PRN ×2 (07:38→14:49)
[2016-07-17] MEDS: GABAPENTIN 300 MG CAP PO SCH ×2 (07:38→20:01)
[2016-07-17] MEDS: metroNIDAZOLE-NS PMX 500 MG in SALINE 1 100ML.BAG IVPB SCH ×3 (09:02→23:27)
[2016-07-17] MEDS: FOLIC ACID 1 MG TAB PO SCH (14:37)
--- NOTE | 2016-07-17 16:14 | P.PN ---
Subjective Principal diagnosis: Transverse colon perforation The patient is status post transverse colectomy for a perforation. He's doing fairly well. Tolerating clear liquids. No flatus or bowel movement. No nausea or vomiting. Pain is well-controlled. Objective - Vital Signs Vital signs: Vital Signs Temp 97.1 F L 07/17/16 15:00 Pulse 77 07/17/16 15:00 Resp 19 07/17/16 15:00 BP 111/71 07/17/16 15:00 Pulse Ox 96 07/17/16 15:00 Intake & Output 07/16/16 07/17/16 07/17/16 18:59 06:59 18:59 Intake Total 1050 1025 Output Total 15 320 Balance 1035 -320 1025 Weight 81.647 kg Intake: IV 925 D5-0.45% NaCl with KCl 875 20Meq/l 1,000 ml @ 125 mls/hr IV .Q8H TIEN Rx#: [id number] Piperacillin-Tazobactam 3 50 .375 gm In Dextrose/Water 1 50ml.bag @ 12.5 mls/hr IVPB Q8HR TIEN Rx#: [id number] Intake, IV Titration 1050 Amount D5-0.45% NaCl with KCl 1000 20Meq/l 1,000 ml @ 125 mls/hr IV .Q8H TIEN Rx#: [id number] Piperacillin-Tazobactam 3 50 .375 gm In Dextrose/Water 1 50ml.bag @ 12.5 mls/hr IVPB Q8HR TIEN Rx#: [id number] Lipid 100 metroNIDAZOLE-NS PMX 500 100 mg In Saline 1 100ml.bag @ 100 mls/hr IVPB Q8HR TIEN Rx#:[id number] Output: Gastric Drainage 0 Drainage 15 20 Left Lower Abdomen 15 20 Urine 300 Other: # Voids 1 1 - Constitutional General appearance: Present: cooperative, no acute distress - Respiratory Respiratory: bilateral: CTA, diminished (Mildly at the bases) - Gastrointestinal General gastrointestinal: Present: decreased bowel sounds, soft Localized gastrointestinal: surgical scar: midline (Incision intact clean and dry without cellulitis) - Labs CBC & Chem 7: 07/15/16 08:05 07/15/16 08:05 Labs: Abnormal Lab Results - Last 24 Hours (Table) 07/16/16 Range/Units 23:57 Urine Protein Trace H (Negative) Urine Ketones 1+ H (Negative) Urine Blood Trace H (Negative) Ur Leukocyte Esterase Trace H (Negative) Urine RBC 6 H (0-5) /hpf Assessment and Plan (1) Perforated viscus Status: Acute Plan: We will advance the patient's diet. Continue DVT and ulcer prophylaxis. Continue therapeutic antibiotics. He's progressing slowly. The pathology showed evidence of a perforation. There is no diverticulitis present. Unsure why the perforation occurred.
[2016-07-17] MEDS: hydrOXYzine PAMOATE 25 MG CAP PO SCH (20:01)
[2016-07-17] MEDS: QUEtiapine 100 MG TAB PO SCH (20:02)
--- NOTE | 2016-07-17 23:10 | P.PN ---
Subjective Date of service 07/17/2016. Progress note being dictated for Dr. Cohn Interval history: This is a 56-year-old gentleman admitted with acute: Perforation, peritonitis, status post transverse colectomy and multiple other medical issues. Maintained on broad-spectrum IV antibiotics. passing no flatus , no bowel movement, abdomen nondistended. Tolerating ice chips and popsicles without any nausea or vomiting. Asking for diet advancement. Pain controlled on RIVET HEATER. T-max 99.5. Chest x-ray nonacute.Pathology reporting perforation, subserosal abscess formation and acute serositis . Objective - Vital Signs Vital signs: Vital Signs Temp 97.1 F L 07/17/16 15:00 Pulse 77 07/17/16 16:00 Resp 19 07/17/16 16:00 BP 111/71 07/17/16 15:00 Pulse Ox 96 07/17/16 15:00 Intake & Output 07/17/16 07/17/16 07/18/16 06:59 18:59 06:59 Intake Total 1025 520 Output Total 320 Balance -320 1025 520 Intake: IV 925 D5-0.45% NaCl with KCl 875 20Meq/l 1,000 ml @ 125 mls/hr IV .Q8H [facility] Rx#: [id number] Piperacillin-Tazobactam 3 50 .375 gm In Dextrose/Water 1 50ml.bag @ 12.5 mls/hr IVPB Q8HR [facility] Rx#: [id number] Oral 520 Lipid 100 metroNIDAZOLE-NS PMX 500 100 mg In Saline 1 100ml.bag @ 100 mls/hr IVPB Q8HR [facility] Rx#:[id number] Output: Drainage 20 Left Lower Abdomen 20 Urine 300 Other: # Voids 1 1 2 - Exam PHYSICAL EXAM: VITAL SIGNS: As above GENERAL: [Sitting up in bed, no acute distress] HEENT: [Pupils equal conjunctiva normal.] NECK: [Supple, no JVD] RESPIRATORY EFFORT:[Normal] LUNGS: [Bilateral bases diminished, scattered rhonchi and fine crackles] CARDIOVASCULAR[regular S1 and S2, no murmurs rubs or gallops] GI: [Abdomen soft, status post surgery, hypoactive bowel sounds, abdominal binder present PSYCH: [Alert and oriented -2-3, mood and affect normal.] NEURO: No focal deficits, moves all 4 extremities, strength and sensation grossly intact Microbiology 07/16/16 18:47 Blood Blood Culture - Preliminary No Growth after 24 hours 07/16/16 17:39 Blood Blood Culture - Preliminary No Growth after 24 hours 07/16/16 23:57 Urine,Voided Urine Culture - Preliminary - Labs CBC & Chem 7: 07/15/16 08:05 07/15/16 08:05 Labs: Abnormal Lab Results - Last 24 Hours (Table) 07/16/16 Range/Units 23:57 Urine Protein Trace H (Negative) Urine Ketones 1+ H (Negative) Urine Blood Trace H (Negative) Ur Leukocyte Esterase Trace H (Negative) Urine RBC 6 H (0-5) /hpf Microbiology - Last 24 Hours (Table) 07/16/16 18:47 Blood Culture - Preliminary Blood No Growth after 24 hours 07/16/16 17:39 Blood Culture - Preliminary Blood No Growth after 24 hours 07/16/16 23:57 Urine Culture - Preliminary Urine,Voided Assessment and Plan Plan: 1. [Acute perforation of the transverse colon with peritonitis, status post exploratory laparotomy with resection of the transverse colon]. 2. [Change in mental status, Acute metabolic encephalopathy, possibly medication induced,]. 3. [Chronic back pain]. 4. [Degenerative joint disease]. 5. [History of anxiety, bipolar, depression, not otherwise specified 6. [Ongoing nicotine dependence]. 7. [Hypoalbuminemia with mild to moderate protein calorie malnutrition]. Plan: Continue on current medication regime , antibiotics, monitoring and symptomatic treatment. Diet advancement as per surgery. GI-Protonix and DVT- compression stockings and sequential's prophylaxis in place. Patient has been advised to continue increasing ambulation in the hallway as tolerated. Follow closely with surgery. Further recommendations to follow. The impression and plan of care has been dictated as directed. : I performed a H&P examination of this patient and discussed the same with the dictator. I agree with the dictator's note. Any additional findings/opinions/ etc. will be noted.
[2016-07-18] MEDS: PIPERACILLIN-TAZOBACTAM 3.375 GM in DEXTROSE/WATER 1 50ML.BAG IVPB SCH ×3 (00:26→15:39)
[2016-07-18] MEDS: D5-0.45% NACL WITH KCL 20MEQ/L 1,000 ML IV SCH (00:27)
[2016-07-18] MEDS: HYDROmorphone PCA 5 MG/25 ML SYRINGE IV PRN (04:43)
[2016-07-18] MEDS: metroNIDAZOLE-NS PMX 500 MG in SALINE 1 100ML.BAG IVPB SCH ×3 (07:56→22:53)
[2016-07-18] MEDS: PANTOPRAZOLE 40 MG/10 ML VIAL IV SCH (07:59)
[2016-07-18] MEDS: GABAPENTIN 300 MG CAP PO SCH ×2 (07:59→20:03)
[2016-07-18] MEDS: NICOTINE 14MG/24HR PATCH TRANSDERM SCH (07:59)
[2016-07-18] MEDS: ALPRAZolam 0.5 MG TAB PO PRN ×3 (08:29→19:16)
--- NOTE | 2016-07-18 08:55 | PN ---
DATE OF SERVICE: 07/18/2016 The patient is seen on rounds. He has passed some flatus. He is tolerating a diet. Pain is controlled. No nausea, no vomiting. PHYSICAL EXAM: Vital signs have been stable. He is afebrile. Abdomen is soft. Hypoactive bowel sounds. The incisions intact, clean, and dry. ASSESSMENT: Status post transverse colectomy for transverse colon perforation of uncertain etiology. PLAN: Will Hep-Lock his IV. Increase his activity, likely ready for discharge in the next day or 2.
[2016-07-18] MEDS: HYDROcodone/APAP 7.5-325MG 1 EACH TAB PO PRN ×3 (10:04→18:18)
[2016-07-18] MEDS: FOLIC ACID 1 MG TAB PO SCH (13:27)
--- NOTE | 2016-07-18 18:21 | P.PN ---
Subjective Date of service 07/18/2016. Progress note being dictated for Dr. Cohn Interval history: This is a 56-year-old gentleman admitted with acute: Perforation, peritonitis, status post transverse colectomy and multiple other medical issues. Maintained on broad-spectrum IV antibiotics. Tolerating soft foods diet, passing flatus, no bowel movement, abdomen nondistended. No nausea or vomiting. [employer] discontinued . Ambulating in the hallway, tolerating increase in exertion well. Afebrile. Objective - Vital Signs Vital signs: Vital Signs Temp 97.8 F 07/18/16 15:00 Pulse 70 07/18/16 15:00 Resp 19 07/18/16 15:00 BP 116/62 07/18/16 15:00 Pulse Ox 97 07/18/16 15:00 Intake & Output 07/17/16 07/18/16 07/18/16 18:59 06:59 18:59 Intake Total 1025 1040 150 Output Total 340 Balance 1025 1040 -190 Intake: IV 925 150 D5-0.45% NaCl with KCl 875 20Meq/l 1,000 ml @ 125 mls/hr IV .Q8H [facility] Rx#: [id number] Piperacillin-Tazobactam 3 50 50 .375 gm In Dextrose/Water 1 50ml.bag @ 12.5 mls/hr IVPB Q8HR [facility] Rx#: [id number] metroNIDAZOLE-NS PMX 500 100 mg In Saline 1 100ml.bag @ 100 mls/hr IVPB Q8HR [facility] Rx#:[id number] Oral 1040 Lipid 100 metroNIDAZOLE-NS PMX 500 100 mg In Saline 1 100ml.bag @ 100 mls/hr IVPB Q8HR [facility] Rx#:[id number] Output: Drainage 140 Left Lower Abdomen 140 Urine 200 Other: Voiding Method Urinal # Voids 1 2 4 - Exam PHYSICAL EXAM: VITAL SIGNS: As above GENERAL: [Sitting up in bed, no acute distress] HEENT: [Pupils equal conjunctiva normal.] NECK: [Supple, no JVD] RESPIRATORY EFFORT:[Normal] LUNGS: [Bilateral bases diminished, no wheezing, occasional rhonchi, no crackles CARDIOVASCULAR[regular S1 and S2, no murmurs rubs or gallops] GI: [Abdomen soft, status post surgery, hypoactive bowel sounds, abdominal binder present PSYCH: [Alert and oriented -2-3, mood and affect normal.] NEURO: No focal deficits, moves all 4 extremities, strength and sensation grossly intact Microbiology 07/16/16 23:57 Urine,Voided Urine Culture - Final 07/16/16 18:47 Blood Blood Culture - Preliminary No Growth after 24 hours 07/16/16 17:39 Blood Blood Culture - Preliminary No Growth after 24 hours - Labs CBC & Chem 7: 07/15/16 08:05 07/15/16 08:05 Labs: Microbiology - Last 24 Hours (Table) 07/16/16 23:57 Urine Culture - Final Urine,Voided 07/16/16 18:47 Blood Culture - Preliminary Blood No Growth after 24 hours 07/16/16 17:39 Blood Culture - Preliminary Blood No Growth after 24 hours Assessment and Plan Plan: 1. [Acute perforation of the transverse colon with peritonitis, status post exploratory laparotomy with resection of the transverse colon]. 2. [Change in mental status, Acute metabolic encephalopathy, possibly medication induced,]. 3. [Chronic back pain]. 4. [Degenerative joint disease]. 5. [History of anxiety, bipolar, depression, not otherwise specified 6. [Ongoing nicotine dependence]. 7. [Hypoalbuminemia with mild to moderate protein calorie malnutrition]. Plan: Continue on current medication regime , PPI, antibiotics, monitoring and symptomatic treatment. Pain management as per GI. Discharge planning in progress as per surgery, pending bowel movement. Has a pulmonary toileting. Continue ambulating in hallway as tolerated. Further recommendations to follow. The impression and plan of care has been dictated as directed. : I performed a H&P examination of this patient and discussed the same with the dictator. I agree with the dictator's note. Any additional findings/opinions/ etc. will be noted.
[2016-07-18] MEDS: hydrOXYzine PAMOATE 25 MG CAP PO SCH (20:03)
[2016-07-18] MEDS: QUEtiapine 100 MG TAB PO SCH (20:04)
[2016-07-19] MEDS: PIPERACILLIN-TAZOBACTAM 3.375 GM in DEXTROSE/WATER 1 50ML.BAG IVPB SCH ×3 (08:40→19:53)
[2016-07-19] MEDS: NICOTINE 14MG/24HR PATCH TRANSDERM SCH (08:40)
[2016-07-19] MEDS: GABAPENTIN 300 MG CAP PO SCH ×2 (08:40→20:43)
[2016-07-19] MEDS: HYDROcodone/APAP 7.5-325MG 1 EACH TAB PO PRN ×3 (08:42→20:53)
[2016-07-19] MEDS: ALPRAZolam 0.5 MG TAB PO PRN ×3 (08:43→19:03)
[2016-07-19 08:47] LABS: Anion Gap 11 mmol/L; Blood Urea Nitrogen 13 mg/dL (9-20); Calcium 9.2 mg/dL (8.4-10.2); Carbon Dioxide 27 mmol/L (22-30); Chloride 103 mmol/L (98-107); Glucose 102 mg/dL (74-99); Non-African American GFR(MDRD) >60 (>60 ml/min/1.73 sqM); Potassium 4.2 mmol/L (3.5-5.1); Sodium 141 mmol/L (137-145)
[2016-07-19 08:49] LABS: Basophils % (A) 1 %; CH 29.8; CHCM 32.6; Eosinophils # (A) 0.3 k/uL (0-0.7); Eosinophils % (A) 7 %; HCT 40.8 % (39.0-53.0); HDW 2.44; HGB 13.7 gm/dL (13.0-17.5); Luc # (Auto) 0.15; Luc % (Auto) 3; Lymphocytes # (A) 0.9 k/uL (1.0-4.8); Lymphocytes % (A) 18 %; MCHC 33.7 g/dL (31.0-37.0); Mean Platelet Volume 7.4; Monocytes # (A) 0.4 k/uL (0-1.0); Monocytes % (A) 7 %; Neutrophils # (A) 3.4 k/uL (1.3-7.7); Neutrophils % (A) 65 %; RBC 4.44 m/uL (4.30-5.90); RDW 13.8 % (11.5-15.5); WBC 5.2 k/uL (3.8-10.6)
[2016-07-19] MEDS: metroNIDAZOLE-NS PMX 500 MG in SALINE 1 100ML.BAG IVPB SCH ×2 (09:41→16:39)
[2016-07-19] MEDS: FOLIC ACID 1 MG TAB PO SCH (12:44)
--- NOTE | 2016-07-19 12:46 | PN ---
The patient is a 56-year-old admitted with peritonitis. The patient underwent transverse colectomy and patient was evaluated by me and patient is okay to discharge summary from my medical perspective. REVIEW OF SYSTEMS: CARDIOVASCULAR: No chest pain, no orthopnea, no PND, no palpitations. PULMONARY: Denied any shortness of breath. No cough or hemoptysis. GASTROINTESTINAL: No diarrhea, nausea or vomiting. No abdominal pain. Normoactive bowel sounds. NEUROLOGIC: No headaches, no weakness, no numbness. Medications were reviewed. Patient did have a bowel movement. PHYSICAL EXAMINATION: VITAL SIGNS: Temperature 98.5, pulse of 70, respiratory rate of 16, blood pressure is 110/59, saturating 100% on room air. GENERAL: The patient is alert and oriented x3, not in any acute distress. Well developed, well nourished. HEENT: Pupils are round and equally reacting to light. EOMI. No scleral icterus. No conjunctival pallor. Normocephalic, atraumatic. No pharyngeal erythema. No thyromegaly. CARDIOVASCULAR: S1 and S2 present. No murmurs, rubs, or gallops. PULMONARY: Chest is clear to auscultation, no wheezing or crackles. ABDOMEN: Patient does have bowel sounds. The patient has abdominal binder in place and surgical site today appears to be clean. MUSCULOSKELETAL: No joint swelling or deformity. EXTREMITIES: No cyanosis, clubbing, or pedal edema. NEUROLOGICAL: Gross neurological examination did not reveal any focal deficits. SKIN: No rashes. LABORATORY DATA: CBC and CMP essentially within normal limits. ASSESSMENT AND PLAN: 1. Acute perforation of the transverse colon status post laparotomy. 2. Altered mental status, acute medical metabolic encephalopathy secondary to narcotic pain medications, which resolved at this point of time. 3. Chronic low back pain. 4. Degenerative joint disease. 5. Nicotine dependence counseling was provided. 6. Mild protein calorie malnutrition. The patient is okay to be discharged from medical perspective. Medication reconciliation was reviewed and we will sign off at this point of time. Patient will need to follow with Dr. Fatoumata Copeland in about a week after discharge.
--- NOTE | 2016-07-19 13:11 | P.PN ---
Subjective Principal diagnosis: Transverse colon perforation The patient is seen on rounds. He is tolerating a diet. He started to have some soft bowel movements. No nausea or vomiting. We did discuss the possible causes of the perforation. There is no evidence of diverticulitis or anything of that nature. He does admit to chewing on toothpicks regularly to try to stop smoking. It's possible he swallowed a tooth pick and it caused the perforation. Otherwise no clear etiology is seen. Objective - Vital Signs Vital signs: Vital Signs Temp 98.0 F 07/19/16 07:00 Pulse 70 07/19/16 07:00 Resp 16 07/19/16 07:00 BP 110/59 07/19/16 07:00 Pulse Ox 100 07/19/16 07:00 Intake & Output 07/18/16 07/19/16 07/19/16 18:59 06:59 18:59 Intake Total 150 700 Output Total 340 730 Balance -190 -30 Weight 81.647 kg Intake: IV 150 Piperacillin-Tazobactam 3 50 .375 gm In Dextrose/Water 1 50ml.bag @ 12.5 mls/hr IVPB Q8HR [facility] Rx#: [id number] metroNIDAZOLE-NS PMX 500 100 mg In Saline 1 100ml.bag @ 100 mls/hr IVPB Q8HR [facility] Rx#:[id number] Oral 700 Output: Drainage 140 30 Left Lower Abdomen 140 30 Urine 200 700 Other: Voiding Method Toilet Toilet Urinal Urinal # Voids 4 2 # Bowel Movements 1 - Constitutional General appearance: Present: cooperative, no acute distress - Gastrointestinal General gastrointestinal: Present: normal bowel sounds, soft Localized gastrointestinal: surgical scar: midline (Dressing intact clean and dry) - Labs CBC & Chem 7: 07/19/16 07:35 07/19/16 07:35 Labs: Abnormal Lab Results - Last 24 Hours (Table) 07/19/16 07/19/16 Range/Units 07:35 07:35 Lymphocytes # 0.9 L (1.0-4.8) k/uL Glucose 102 H (74-99) mg/dL Microbiology - Last 24 Hours (Table) 07/16/16 18:47 Blood Culture - Preliminary Blood No Growth after 48 hours 07/16/16 17:39 Blood Culture - Preliminary Blood No Growth after 48 hours 07/16/16 23:57 Urine Culture - Final Urine,Voided Assessment and Plan (1) Perforated viscus Status: Acute Plan: Increase diet and activity. He's been switched over to oral pain medications. Anticipate discharge tomorrow.
[2016-07-19] MEDS: hydrOXYzine PAMOATE 25 MG CAP PO SCH (20:44)
[2016-07-19] MEDS: QUEtiapine 100 MG TAB PO SCH (20:46)
[2016-07-20] MEDS: metroNIDAZOLE-NS PMX 500 MG in SALINE 1 100ML.BAG IVPB SCH ×2 (01:08→09:30)
[2016-07-20] MEDS: PIPERACILLIN-TAZOBACTAM 3.375 GM in DEXTROSE/WATER 1 50ML.BAG IVPB SCH ×2 (01:09→08:02)
[2016-07-20] MEDS: HYDROcodone/APAP 7.5-325MG 1 EACH TAB PO PRN ×2 (03:55→11:26)
[2016-07-20] MEDS: ALPRAZolam 0.5 MG TAB PO PRN ×2 (04:00→08:02)
[2016-07-20 07:45] VITALS: BP 116/68; PULSE 64; RESP 19; TEMP 97
[2016-07-20] MEDS: GABAPENTIN 300 MG CAP PO SCH (08:02)
[2016-07-20] MEDS: NICOTINE 14MG/24HR PATCH TRANSDERM SCH (08:02)
--- NOTE | 2016-07-20 14:18 | P.PN ---
Subjective Principal diagnosis: Bowel perforation Patient doing well today. He is anxious for discharge. He is tolerating his diet. Pain is well-controlled. Objective - Vital Signs Vital signs: Vital Signs Temp 97.0 F L 07/20/16 07:00 Pulse 64 07/20/16 07:00 Resp 19 07/20/16 07:00 BP 116/68 07/20/16 07:00 Pulse Ox 92 L 07/20/16 07:00 Intake & Output 07/19/16 07/20/16 07/20/16 18:59 06:59 18:59 Intake Total 150 Output Total 766 Balance -616 Weight 81.647 kg Intake: IV 150 Piperacillin-Tazobactam 3 50 .375 gm In Dextrose/Water 1 50ml.bag @ 12.5 mls/hr IVPB Q8HR [facility] Rx#: [id number] metroNIDAZOLE-NS PMX 500 100 mg In Saline 1 100ml.bag @ 100 mls/hr IVPB Q8HR [facility] Rx#:[id number] Output: Drainage 66 Left Lower Abdomen 66 Urine 700 Other: Voiding Method Toilet # Voids 2 1 # Bowel Movements 1 - Exam Abdomen: Soft, nondistended, incision clean and dry, minimal tenderness - Labs CBC & Chem 7: 07/19/16 07:35 07/19/16 07:35 Labs: Microbiology - Last 24 Hours (Table) 07/16/16 18:47 Blood Culture - Preliminary Blood No Growth after 72 hours 07/16/16 17:39 Blood Culture - Preliminary Blood No Growth after 72 hours Assessment and Plan Plan: Discharge home today.
--- NOTE | 2016-07-20 14:30 | PN ---
The patient is admitted for peritonitis and perforation and patient is clinically doing well. Patient was not discharged yesterday. Patient probably will be discharged today and all the medication reconciliation was reviewed. Patient can be discharged from my perspective. REVIEW OF SYSTEMS: CARDIOVASCULAR: No chest pain, no orthopnea, no PND, no palpitations. PULMONARY: Denied any shortness of breath. No cough or hemoptysis. GASTROINTESTINAL: No diarrhea, nausea or vomiting. No abdominal pain. Normoactive bowel sounds. NEUROLOGIC: No headaches, no weakness, no numbness. Medications were reviewed. PHYSICAL EXAMINATION: VITAL SIGNS: Temperature 97.5, pulse of 64, respiratory rate of 19, blood pressure is 116/68, saturating at 92% on room air. GENERAL: The patient is alert and oriented x3, not in any acute distress. Well developed, well nourished. HEENT: Pupils are round and equally reacting to light. EOMI. No scleral icterus. No conjunctival pallor. Normocephalic, atraumatic. No pharyngeal erythema. No thyromegaly. CARDIOVASCULAR: S1 and S2 present. No murmurs, rubs, or gallops. PULMONARY: Chest is clear to auscultation, no wheezing or crackles. ABDOMEN: Soft, nontender, nondistended, normoactive bowel sounds. No palpable organomegaly. MUSCULOSKELETAL: No joint swelling or deformity. EXTREMITIES: No cyanosis, clubbing, or pedal edema. NEUROLOGICAL: Gross neurological examination did not reveal any focal deficits. SKIN: No rashes. SURGICAL SITE AREA: No significant change compared to yesterday. LABORATORY DATA: CBC and basic metabolic profile essentially within normal limits. ASSESSMENT AND PLAN: 1. Acute perforation of the transverse colon, status post laparotomy. 2. Altered mental status secondary to acute toxic metabolic encephalopathy from medications, which improved. 3. Chronic low back pain. 4. Degenerative joint disease. 5. Nicotine abuse. 6. Mild protein calorie malnutrition. Patient is okay to be discharged from my perspective. Follow with Dr. Fatoumata Copeland in 3 to 7 days. No further recommendation from my perspective. Will sign off at this time.
--- NOTE | 2016-07-23 19:49 | P.DS ---
Providers Date of admission: 07/14/16 14:51 Expected date of discharge: 07/20/16 Attending physician: Monica Gonzalez Consults: 07/14/16 17:37 Consult Physician Routine Consulting Provider: Kacey Dumont Consult Reason/Comments: Medical management Do you want consulting provider notified?: Yes Primary care physician: Fatoumata Copeland - Discharge Diagnosis(es) (1) Perforated viscus Status: Acute (2) Perforation bowel Status: Acute Hospital Course: The patient presented to the emergency department with abdominal pain and was found to have perforated diverticulitis. He was taken to the OR where he underwent a resection without anastomosis. He was given IV antibiotics. DVT and ulcer prophylaxis. He was slowly able to be started on a diet and by 4-15 was tolerating a diet with minimal pain and felt to be stable for discharge Pertinent Studies: CT Procedures: Colon resection Patient Condition at Discharge: Good Plan - Discharge Summary New Discharge Prescriptions: HYDROcodone/APAP 7.5-325MG [[place] 7.5-325] 1 tab PO Q4H PRN #30 tab PRN Reason: Pain Nicotine 14Mg/24Hr Patch [Habitrol] 1 patch TRANSDERM DAILY #30 patch Discharge Medication List ALPRAZolam [Xanax] 1 mg PO Q8H PRN #15 tablet 04/08/16 [Rx] Pantoprazole [Protonix] 40 mg PO DAILY #30 tablet. 04/09/16 [Rx] QUEtiapine [SEROquel] 300 mg PO HS 14 Days 04/09/16 [Rx] hydrOXYzine PAMOATE [Vistaril] 50 mg PO HS 14 Days 04/09/16 [Rx] Folic Acid 1 mg PO DAILY 05/23/16 [History] Gabapentin 600 mg PO BID 05/23/16 [History] Nicotine 14Mg/24Hr Patch [Habitrol] 1 patch TRANSDERM DAILY #30 patch 07/18/16 [ Rx] HYDROcodone/APAP 7.5-325MG [[place] 7.5-325] 1 tab PO Q4H PRN #30 tab 07/19/16 [Rx ] Follow up Appointment(s)/Referral(s): Monica Gonzalez DO [Emergency Provider] - 10 Days [facility], [NON-STAFF] - Fatoumata Copeland MD [Primary Care Provider] - 3 Days Patient Instructions/Handouts: Wound Healing and Your Diet (DC), Perforated Bowel (DC) Activity/Diet/Wound Care/Special Instructions: You may shower. No tub baths for 1 week. The Aqu[employer]el [employer] packing may be discontinued Friday. After that cover the wound with a light dressing as needed. Eat a soft diet. Avoid fresh fruits and vegetables for approximately 2 weeks than those may be slowly reintroduced. No lifting greater than 10 pounds. No driving for 1 week. Expect bowel movements to be more frequent and softer for 1-2 weeks. Call if questions or concerns. Discharge Disposition: HOME WITH HOME HEALTH SERVICES
== END 2016-07-20 13:54 | disposition home health service (06) | DRG 329 ==
LOC: EC 10:32 → 4MS4W 14:51
PROVIDERS: ADMIT Surgery; ATTEND Surgery
PROC: 0DTL0ZZ Resection of Transverse Colon, Open Approach (ICD-10-PCS; principal; 2016-07-14 15:30)
DX: K57.80 Diverticulitis of intestine, part unspecified, with perforation and abscess without bleeding (principal); G92 Toxic encephalopathy; E44.0 Moderate protein-calorie malnutrition; F17.200 Nicotine dependence, unspecified, uncomplicated; F31.9 Bipolar disorder, unspecified; F41.9 Anxiety disorder, unspecified; G89.29 Other chronic pain; M19.90 Unspecified osteoarthritis, unspecified site; T50.905A Adverse effect of unspecified drugs, medicaments and biological substances, initial encounter; Z79.899 Other long term (current) drug therapy
CPT/HCPCS: 36415; 71020; 74020; 74177; 80048; 80053; 81001; 81003; 82150; 83690; 85025; 87040; 87086; 88307; 88313; 93005; 96361; 96374; 96376; 99291

== ENCOUNTER 2016-08-01 15:53 | Emergency (ER) | payer MEDICARE ==
--- NOTE | 2016-08-01 17:11 | ED ---
General Adult HPI - General Chief complaint: Recheck/Abnormal Lab/Rx Stated complaint: post op incision problems Time Seen by Provider: 08/01/16 16:09 Source: patient Mode of arrival: ambulatory Limitations: no limitations - History of Present Illness Initial comments: Patient is a 48-year-old with tobacco abuse presenting with concern for skin infection. Patient had bowel resection July [address] Gonzalez. Incision was closed with viviana and a follow-up with Dr. Gonzalez on Friday for staple removal. At that time there was small amount of erythema associated with viviana which family had a picture of. The surgeon told them to keep it clean and apply Neosporin. Over the past several days that has been worsening redness and superficial purulence associated where viviana were. Patient denies fever, chills, chest pain, shortness breath, nausea, vomiting, abdominal pain, diarrhea, dysuria. - Related Data Home Medications Medication Instructions Recorded Confirmed Folic Acid 1 mg PO DAILY 05/23/16 08/01/16 Gabapentin 600 mg PO BID 05/23/16 08/01/16 QUEtiapine FUMARATE [SEROquel] 300 mg PO HS 08/01/16 08/01/16 Previous Rx's Medication Instructions Recorded ALPRAZolam [Xanax] 1 mg PO Q8H PRN #15 tablet 04/08/16 Pantoprazole [Protonix] 40 mg PO DAILY #30 tablet. 04/09/16 hydrOXYzine PAMOATE [Vistaril] 50 mg PO HS 14 Days 04/09/16 HYDROcodone/APAP 7.5-325MG [[place] 1 tab PO Q4H PRN #30 tab 07/19/16 7.5-325] Sulfamethox-Tmp 800-160Mg [Bactrim 2 tab PO BID #40 tab 08/01/16 DS 800-160 mg] Allergies Allergy/AdvReac Type Severity Reaction Status Date / Time No Known Allergies Allergy Verified 08/01/16 16:53 Review of Systems ROS Statement: Those systems with pertinent positive or pertinent negative responses have been documented in the HPI. Constitutional: No fever and no chills. HENT: No congestion, no rhinorrhea and no sore throat. Eyes: No discharge and no redness. Respiratory: No cough and no shortness of breath. Cardiovascular: No chest pain and no palpitations. Gastrointestinal: No nausea, no vomiting, no abdominal pain and no diarrhea. Genitourinary: No dysuria and no hematuria. Musculoskeletal: No back pain and no arthralgias. Skin: No pallor and +rash. + Wound. Neurological: No dizziness and No headaches. ROS Other: All systems not noted in ROS Statement are negative. Past Medical History Additional Past Medical History / Comment(s): chronic back pain; Perforated bowel History of Any Multi-Drug Resistant Organisms: None Reported Past Surgical History: Bowel Resection, Joint Replacement, Orthopedic Surgery Additional Past Surgical History / Comment(s): left hip, right hip compound fracture Past Anesthesia/Blood Transfusion Reactions: No Reported Reaction Past Psychological History: Anxiety, Bipolar, Depression Smoking Status: Current every day smoker Past Alcohol Use History: None Reported Past Drug Use History: None Reported - Past Family History Mother Family Medical History: No Reported History General Exam - General Exam Comments Initial Comments: Constitutional: Patient appears well-developed and well-nourished. No distress. Head: Normocephalic and atraumatic. Eyes: Conjunctivae and EOM are normal. Right eye exhibits no discharge. Left eye exhibits no discharge. No scleral icterus. Neck: Normal range of motion. Neck supple. Cardiovascular: Normal rate and regular rhythm. No murmur heard. Pulmonary/Chest: Effort normal and breath sounds normal. No respiratory distress. No wheezes. Abdominal: Soft. No distension. There is no tenderness. There is no rebound and no guarding. Musculoskeletal: Normal range of motion. No edema or tenderness. Neurological: Patient alert and oriented to person, place, and time. Skin: Patient has a midline abdominal scar with associated erythema surrounding staple holes. Purulent superficial fluid is present within these post staple holes with similar appearance to folliculitis. Comparing picture from staple removal when surgeon saw it to now there is new follicuitis-type changes to post staple holes. Skin is warm and dry. Not diaphoretic. Nursing notes and vitals reviewed. Limitations: no limitations Course Vital Signs 08/01/16 16:04 Temperature 98.9 F Pulse Rate 89 Respiratory 18 Rate Blood Pressure 166/99 O2 Sat by Pulse 97 Oximetry - Reevaluation(s) Reevaluation #1: 08/01/16 17:[address] Gonzalez who agrees that patient can start antibiotics and follow-up with her outpatient. Patient agreeable with this plan. Nontoxic- appearing. Medical Decision Making - Medical Decision Making Patient's a 56-year-old male with tobacco abuse presenting with wound check from bowel resection July 15. We'll start patient on Bactrim and have outpatient follow-up with surgeon. Prior to discharge, patient was resting comfortably in bed. Course of stay improved. Denies pain. Discussed physical exam with patient. Questions answered and patient is agreeable to discharge with close follow up with Primary Care Physician/Surgeon. Instructed to return to Emergency Department if symptoms worsen. Disposition Clinical Impression: Cellulitis Disposition: HOME SELF-CARE Condition: Good Instructions: Cellulitis (ED) Prescriptions: Sulfamethox-Tmp 800-160Mg [Bactrim DS 800-160 mg] 2 tab PO BID #40 tab Referrals: Fatoumata Copeland MD [Primary Care Provider] - 1-2 days Monica Gonzalez DO [Doctor of Osteopathic Medicine] - 1-2 days
[2016-08-01 17:50] VITALS: BP 120/78; PULSE 78; RESP 16; TEMP 100.4
== END 2016-08-01 17:49 | disposition home or self-care (01) ==
LOC: EC 15:53
DX: T81.4XXA Infection following a procedure, initial encounter (principal); F31.9 Bipolar disorder, unspecified; F41.9 Anxiety disorder, unspecified; F17.200 Nicotine dependence, unspecified, uncomplicated; Z79.899 Other long term (current) drug therapy; Z98.890 Other specified postprocedural states; Y83.8 Other surgical procedures as the cause of abnormal reaction of the patient, or of later complication, without mention of misadventure at the time of the procedure
CPT/HCPCS: 99283

== ENCOUNTER 2016-08-25 13:20 | Emergency (ER) | payer MEDICARE ==
[2016-08-25 13:43] VITALS: BP 133/83; PULSE 73; RESP 16; TEMP 99
--- NOTE | 2016-08-25 14:16 | ED ---
Extremity Problem HPI - General Chief complaint: Extremity Problem,Nontraumatic Stated complaint: Hip Pain Time Seen by Provider: 08/25/16 14:04 Source: patient, RN notes reviewed Mode of arrival: ambulatory Limitations: no limitations - History of Present Illness Initial comments: Patient is a 56-year-old male since emergency room for evaluation of left hip pain. Patient states is a history of chronic left hip pain. Patient states he had a hip replacement about 10 years ago. Patient states he's not sure what surgeon perform the surgery. Patient states he has on and off flareups of hip pain. Patient states he takes [place] at home for pain. Patient states the [place] is no longer helping. Patient states he called his primary care provider was advised to come here to get a hip x-ray. Patient denies any warmth or tenderness at this hip area. Patient has any numbness or tingling or numbness toes. Patient denies low back pain. Patient denies recent fall or injury to his hip. - Related Data Home Medications Medication Instructions Recorded Confirmed Folic Acid 1 mg PO DAILY 05/23/16 08/25/16 Gabapentin 600 mg PO BID 05/23/16 08/25/16 QUEtiapine FUMARATE [SEROquel] 300 mg PO HS 08/01/16 08/25/16 HYDROcodone/APAP 7.5-325MG [[place] 2 tab PO BID PRN 08/25/16 08/25/16 7.5-325] Previous Rx's Medication Instructions Recorded ALPRAZolam [Xanax] 1 mg PO Q8H PRN #15 tablet 04/08/16 Pantoprazole [Protonix] 40 mg PO DAILY #30 tablet. 04/09/16 hydrOXYzine PAMOATE [Vistaril] 50 mg PO HS 14 Days 04/09/16 Allergies Allergy/AdvReac Type Severity Reaction Status Date / Time No Known Allergies Allergy Verified 08/25/16 14:09 Review of Systems ROS Statement: Those systems with pertinent positive or pertinent negative responses have been documented in the HPI. ROS Other: All systems not noted in ROS Statement are negative. Past Medical History Additional Past Medical History / Comment(s): chronic back pain; Perforated bowel History of Any Multi-Drug Resistant Organisms: None Reported Past Surgical History: Bowel Resection, Joint Replacement, Orthopedic Surgery Additional Past Surgical History / Comment(s): left hip, right hip compound fracture Past Anesthesia/Blood Transfusion Reactions: No Reported Reaction Past Psychological History: Anxiety, Bipolar, Depression Smoking Status: Current every day smoker Past Alcohol Use History: None Reported Past Drug Use History: None Reported - Past Family History Mother Family Medical History: No Reported History General Exam - General Exam Comments Initial Comments: Sitting on exam chair, no acute distress. Limitations: no limitations General appearance: alert, in no apparent distress Head exam: Present: atraumatic, normocephalic, normal inspection Eye exam: Present: normal appearance ENT exam: Present: normal exam Neck exam: Present: normal inspection Respiratory exam: Absent: respiratory distress Left Hip exam: Present: full ROM, tenderness (Tenderness on palpating over the anterior lateral hip joint). Absent: swelling Upper Leg exam: Present: normal inspection, full ROM Knee exam: Present: normal inspection, full ROM Lower Leg exam: Present: normal inspection, full ROM Ankle exam: Present: normal inspection, full ROM Foot/Toe exam: Present: normal inspection, full ROM Neurovascular tendon exam: Present: no vascular compromise. Absent: pulse deficit (2+ dorsal pedal and posterior tibial pulses), abnormal cap refill ( Capillary refill less than 2 seconds) Back exam: Present: normal inspection Neurological exam: Present: alert, oriented X3, CN II-XII intact, normal gait Psychiatric exam: Present: normal affect, normal mood Skin exam: Present: warm, dry, intact, normal color. Absent: rash Course Vital Signs 08/25/16 13:39 Temperature 99.0 F Pulse Rate 73 Respiratory 16 Rate Blood Pressure 133/83 O2 Sat by Pulse 97 Oximetry Medical Decision Making - Medical Decision Making Patient is a 56-year-old male presents to the emergency room for evaluation of chronic left hip pain. Patient requested an x-ray. X-ray shows no acute findings. Patient he takes [place] at home. Advised patient to take the medication and to follow up with primary care provider for reevaluation. Patient states he understands everything that was discussed with him. Return parameters discussed. Case discussed Dr. Acevedo. - Radiology Data Radiology results: report reviewed, image reviewed Disposition Clinical Impression: Chronic left hip pain Disposition: HOME SELF-CARE Condition: Good Instructions: Hip Pain (ED) Additional Instructions: Continue taking at home pain medications as needed. Please follow-up with primary care provider for reevaluation. If new symptoms develop or symptoms worsen, please return to the ER. Referrals: Fatoumata Copeland MD [Primary Care Provider] - 1-2 days Time of Disposition: 15:42
--- NOTE | 2016-08-25 15:45 | XR ---
EXAMINATION TYPE: XR Hip Complete LT DATE OF EXAM: 08/25/2016 2:25 PM COMPARISON: NONE HISTORY: Pain TECHNIQUE: 2 view left hip FINDINGS: There is a left hip prosthesis. No acute fractures are evident. IMPRESSION: 1. Normal left hip with a left hip prosthesis present
== END 2016-08-25 15:51 | disposition home or self-care (01) ==
LOC: EC 13:20
DX: G89.29 Other chronic pain (principal); M25.552 Pain in left hip; F31.9 Bipolar disorder, unspecified; F41.9 Anxiety disorder, unspecified; F17.200 Nicotine dependence, unspecified, uncomplicated; Z79.899 Other long term (current) drug therapy; Z96.649 Presence of unspecified artificial hip joint
CPT/HCPCS: 73502; 99283

== ENCOUNTER 2016-10-23 12:42 | Emergency (ER) | payer MEDICARE, OTHER ==
[2016-10-23] MEDS ORDERED: LORazepam 1 MG TAB PO STA (13:58)
--- NOTE | 2016-10-23 14:02 | ED ---
General Adult HPI - General Chief complaint: Psychiatric Symptoms Stated complaint: med refill Time Seen by Provider: 10/23/16 13:40 Source: patient, RN notes reviewed Mode of arrival: ambulatory Limitations: no limitations - History of Present Illness Initial comments: 56-year-old male presents with chief complaint of anxiety and states he is out of his medication which is 2 mg of Xanax. Patient called his primary care physician for refill and she was unable to see the patient so he presents to the emergency department. He states that his primary care physician believes he needs 2 mg of Ativan to calm his nerves. He does have a history of anxiety and panic disorder. Patient reports to triage nurse that he is suicidal, denies a plan. Patient denies martine suicidal ideation or homicidal ideation to myself. However he is agreeable to psychiatric evaluation. - Related Data Home Medications Medication Instructions Recorded Confirmed Folic Acid 1 mg PO DAILY 05/23/16 10/23/16 Gabapentin 600 mg PO BID 05/23/16 10/23/16 QUEtiapine FUMARATE [SEROquel] 300 mg PO HS 08/01/16 10/23/16 HYDROcodone/APAP 7.5-325MG [[place] 2 tab PO BID PRN 08/25/16 10/23/16 7.5-325] Previous Rx's Medication Instructions Recorded ALPRAZolam [Xanax] 1 mg PO Q8H PRN #15 tablet 04/08/16 Pantoprazole [Protonix] 40 mg PO DAILY #30 tablet. 04/09/16 hydrOXYzine PAMOATE [Vistaril] 50 mg PO HS 14 Days 04/09/16 LORazepam [Ativan] 1 mg PO TID PRN #15 tab 10/23/16 Allergies Allergy/AdvReac Type Severity Reaction Status Date / Time No Known Allergies Allergy Verified 10/23/16 14:42 Review of Systems ROS Statement: Those systems with pertinent positive or pertinent negative responses have been documented in the HPI. ROS Other: All systems not noted in ROS Statement are negative. Past Medical History Additional Past Medical History / Comment(s): chronic back pain; Perforated bowel History of Any Multi-Drug Resistant Organisms: None Reported Past Surgical History: Bowel Resection, Joint Replacement, Orthopedic Surgery Additional Past Surgical History / Comment(s): left hip, right hip compound fracture Past Anesthesia/Blood Transfusion Reactions: No Reported Reaction Past Psychological History: Anxiety, Bipolar, Depression Smoking Status: Current every day smoker Past Alcohol Use History: None Reported Past Drug Use History: None Reported - Past Family History Mother Family Medical History: No Reported History General Exam Limitations: no limitations General appearance: alert, in no apparent distress, anxious Head exam: Present: atraumatic, normocephalic Eye exam: Present: normal appearance, PERRL ENT exam: Present: normal exam, mucous membranes moist Neck exam: Present: normal inspection, full ROM Respiratory exam: Present: normal lung sounds bilaterally. Absent: respiratory distress Cardiovascular Exam: Present: regular rate, normal rhythm GI/Abdominal exam: Present: soft, other (Laparotomy scar). Absent: distended Extremities exam: Present: normal inspection. Absent: pedal edema Neurological exam: Present: alert, oriented X3 Psychiatric exam: Present: normal affect, anxious Skin exam: Present: warm, dry Course Vital Signs 10/23/16 12:49 Temperature 97.0 F L Pulse Rate 85 Respiratory 18 Rate Blood Pressure 190/95 O2 Sat by Pulse 97 Oximetry Medical Decision Making - Medical Decision Making 56-year-old male presenting with anxiety and panic attack. Patient reported to triage nurse that he was suicidal. He denies suicidal ideation to me but is willing to have psychiatric evaluation. Currently awaiting urine drug screen. Patient will be given 1 mg of Ativan while he waits for psychiatric evaluation. Patient is medically cleared at 1400 Patient was evaluated emergency department by social work and case was discussed with the psychiatrist portfolio consultant. Patient again denies suicidal ideation at this time. He is stable for discharge this agreed upon by myself, ED social insurance specialist and psychiatry. Diagnosis: Anxiety - Lab Data Lab Results 10/23/16 Range/Units 15:56 Urine Opiates Screen Detected H (NotDetected) Ur Oxycodone Screen Not Detected (NotDetected) Urine Methadone Screen Not Detected (NotDetected) Ur Propoxyphene Screen Not Detected (NotDetected) Ur Barbiturates Screen Not Detected (NotDetected) U Tricyclic Antidepress Detected H (NotDetected) Ur Phencyclidine Scrn Not Detected (NotDetected) Ur Amphetamines Screen Not Detected (NotDetected) U Methamphetamines Scrn Not Detected (NotDetected) U Benzodiazepines Scrn Detected H (NotDetected) Urine Cocaine Screen Not Detected (NotDetected) U Marijuana (THC) Screen Not Detected (NotDetected) Disposition Clinical Impression: Acute anxiety Disposition: HOME SELF-CARE Condition: Good Instructions: Anxiety (ED) Prescriptions: LORazepam [Ativan] 1 mg PO TID PRN #15 tab PRN Reason: Anxiety Referrals: Fatoumata Copeland MD [Primary Care Provider] - 1-2 days Time of Disposition: 17:22
[2016-10-23] MEDS ORDERED: ACETAMINOPHEN TAB 325 MG TAB PO STA (14:29)
[2016-10-23 17:37] VITALS: BP 163/89; PULSE 74; RESP 16; TEMP 97.9
== END 2016-10-23 17:37 | disposition home or self-care (01) ==
LOC: EC 12:42
DX: F41.8 Other specified anxiety disorders (principal); F31.9 Bipolar disorder, unspecified; F17.200 Nicotine dependence, unspecified, uncomplicated; Z79.899 Other long term (current) drug therapy; Z98.890 Other specified postprocedural states
CPT/HCPCS: 80306; 82075; 99284

== ENCOUNTER 2016-11-12 11:53 | Emergency (ER) | payer MEDICARE, OTHER ==
[2016-11-12 12:00] VITALS: PULSE 99; RESP 20; TEMP 98
[2016-11-12] MEDS ORDERED: LORazepam 1 MG TAB PO STA (12:10)
--- NOTE | 2016-11-12 12:12 | ED ---
Recheck HPI - General Chief Complaint: Recheck/Abnormal Lab/Rx Stated Complaint: MED REFILL Time Seen by Provider: 11/12/16 12:04 Source: patient Mode of arrival: ambulatory Limitations: no limitations - History of Present Illness Initial Comments: 56-year-old male patient presents to emergency department today for refill on his Xanax. Patient states that he is out of his medication and doesn't have a follow-up appointment with his physician until December. Patient states that he is currently having insurance issues and always is doctor and she will not refill his prescriptions until she gets paid. Patient states he has been out for the last week. Patient states his anxiety is increasing. States he feels shaky. Patient denies any suicidal or homicidal ideation. Patient denies any hallucinations. Patient denies any headache, dizziness, weakness, nausea, vomiting, chest pain, shortness of breath, difficulty with urination or bowel movements. - Related Data Home Medications Medication Instructions Recorded Confirmed Folic Acid 1 mg PO DAILY 05/23/16 10/23/16 Gabapentin 600 mg PO BID 05/23/16 10/23/16 QUEtiapine FUMARATE [SEROquel] 300 mg PO HS 08/01/16 10/23/16 HYDROcodone/APAP 7.5-325MG [[place] 2 tab PO BID PRN 08/25/16 10/23/16 7.5-325] Previous Rx's Medication Instructions Recorded ALPRAZolam [Xanax] 1 mg PO Q8H PRN #15 tablet 04/08/16 Pantoprazole [Protonix] 40 mg PO DAILY #30 tablet. 04/09/16 hydrOXYzine PAMOATE [Vistaril] 50 mg PO HS 14 Days 04/09/16 LORazepam [Ativan] 1 mg PO TID PRN #15 tab 10/23/16 Allergies Allergy/AdvReac Type Severity Reaction Status Date / Time No Known Allergies Allergy Verified 11/12/16 12:00 Review of Systems ROS Statement: Those systems with pertinent positive or pertinent negative responses have been documented in the HPI. ROS Other: All systems not noted in ROS Statement are negative. Past Medical History Additional Past Medical History / Comment(s): chronic back pain; Perforated bowel History of Any Multi-Drug Resistant Organisms: None Reported Past Surgical History: Bowel Resection, Joint Replacement, Orthopedic Surgery Additional Past Surgical History / Comment(s): left hip, right hip compound fracture Past Anesthesia/Blood Transfusion Reactions: No Reported Reaction Past Psychological History: Anxiety, Bipolar, Depression Smoking Status: Current every day smoker Past Alcohol Use History: None Reported Past Drug Use History: None Reported - Past Family History Mother Family Medical History: No Reported History General Exam Limitations: no limitations Course Vital Signs 11/12/16 11:58 Temperature 98.0 F Pulse Rate 99 Respiratory 20 Rate Medical Decision Making - Medical Decision Making 56-year-old male patient presented to emergency department today for refill on his anxiety medication. Patient does get this prescription from his primary care doctor, patient was looked up in the map system and it appears that he got a refill of 30 Xanax on 10/11/2016, and then an additional 15 Ativan on 2016. Patient states that he was having insurance and money issues and was unable to get into his doctor until December. Patient's story did change a couple of times while speaking to him. Did offer the patient a mental health evaluation for his anxiety, he refused at this time stating that he had someone waiting for him. Patient was given 1 mg of Ativan here. Patient instructed to call his physician for refills on his medications. Patient verbalizes understanding and agreement with this plan. Disposition Clinical Impression: Anxiety, Medication refill Disposition: HOME SELF-CARE Condition: Good Instructions: Benzodiazepine Abuse (ED), Generalized Anxiety Disorder (ED) Additional Instructions: Obtain med refills from primary care physician. Take medications only as directed. Return for any new, worsening, or concerning symptoms. Referrals: Fatoumata Copeland MD [Primary Care Provider] - 1-2 days Time of Disposition: 12:11
[2016-11-12 12:27] VITALS: BP 159/69
--- NOTE | 2016-11-12 12:28 | ED ---
General Adult HPI - General Chief complaint: Recheck/Abnormal Lab/Rx Stated complaint: MED REFILL Time Seen by Provider: 11/12/16 12:04 Source: patient Mode of arrival: ambulatory Limitations: no limitations - Related Data Home Medications Medication Instructions Recorded Confirmed Folic Acid 1 mg PO DAILY 05/23/16 10/23/16 Gabapentin 600 mg PO BID 05/23/16 10/23/16 QUEtiapine FUMARATE [SEROquel] 300 mg PO HS 08/01/16 10/23/16 HYDROcodone/APAP 7.5-325MG [[place] 2 tab PO BID PRN 08/25/16 10/23/16 7.5-325] Previous Rx's Medication Instructions Recorded ALPRAZolam [Xanax] 1 mg PO Q8H PRN #15 tablet 04/08/16 Pantoprazole [Protonix] 40 mg PO DAILY #30 tablet. 04/09/16 hydrOXYzine PAMOATE [Vistaril] 50 mg PO HS 14 Days 04/09/16 LORazepam [Ativan] 1 mg PO TID PRN #15 tab 10/23/16 Allergies Allergy/AdvReac Type Severity Reaction Status Date / Time No Known Allergies Allergy Verified 11/12/16 12:00 Review of Systems ROS Statement: Those systems with pertinent positive or pertinent negative responses have been documented in the HPI. ROS Other: All systems not noted in ROS Statement are negative. Past Medical History Additional Past Medical History / Comment(s): chronic back pain; Perforated bowel History of Any Multi-Drug Resistant Organisms: None Reported Past Surgical History: Bowel Resection, Joint Replacement, Orthopedic Surgery Additional Past Surgical History / Comment(s): left hip, right hip compound fracture Past Anesthesia/Blood Transfusion Reactions: No Reported Reaction Past Psychological History: Anxiety, Bipolar, Depression Smoking Status: Current every day smoker Past Alcohol Use History: None Reported Past Drug Use History: None Reported - Past Family History Mother Family Medical History: No Reported History General Exam Limitations: no limitations General appearance: alert, in no apparent distress Head exam: Present: atraumatic, normocephalic, normal inspection Eye exam: Present: normal appearance, PERRL, EOMI. Absent: scleral icterus, conjunctival injection, periorbital swelling ENT exam: Present: normal exam, mucous membranes moist Neck exam: Present: normal inspection. Absent: tenderness, meningismus, lymphadenopathy Respiratory exam: Present: normal lung sounds bilaterally. Absent: respiratory distress, wheezes, rales, rhonchi, stridor Cardiovascular Exam: Present: regular rate, normal rhythm, normal heart sounds. Absent: systolic murmur, diastolic murmur, rubs, gallop, clicks GI/Abdominal exam: Present: soft, normal bowel sounds. Absent: distended, tenderness, guarding, rebound, rigid Extremities exam: Present: normal inspection, full ROM, normal capillary refill. Absent: tenderness, pedal edema, joint swelling, calf tenderness Back exam: Present: normal inspection Neurological exam: Present: alert, oriented X3, CN II-XII intact Psychiatric exam: Present: normal affect, anxious Skin exam: Present: warm, dry, intact, normal color. Absent: rash Course Vital Signs 11/12/16 11/12/16 11:58 12:26 Temperature 98.0 F Pulse Rate 99 Respiratory 20 Rate Blood Pressure 159/69 Disposition Clinical Impression: Anxiety, Medication refill Disposition: HOME SELF-CARE Condition: Good Instructions: Benzodiazepine Abuse (ED), Generalized Anxiety Disorder (ED) Additional Instructions: Obtain med refills from primary care physician. Take medications only as directed. Return for any new, worsening, or concerning symptoms. Referrals: Fatoumata Copeland MD [Primary Care Provider] - 1-2 days
== END 2016-11-12 12:27 | disposition home or self-care (01) ==
LOC: EC 11:53
DX: F41.9 Anxiety disorder, unspecified (principal); Z76.0 Encounter for issue of repeat prescription; F31.9 Bipolar disorder, unspecified; F17.200 Nicotine dependence, unspecified, uncomplicated; Z79.899 Other long term (current) drug therapy
CPT/HCPCS: 99282

== ENCOUNTER 2017-03-06 10:38 | Emergency (ER) | payer MEDICARE, OTHER ==
--- NOTE | 2017-03-06 11:19 | ED ---
General Adult HPI - General Chief complaint: Recheck/Abnormal Lab/Rx Stated complaint: med refills Source: patient Mode of arrival: ambulatory Limitations: no limitations - History of Present Illness Initial comments: Patient is a 56-year-old male who presents for evaluation for medication refill. Past medical history as below. Patient states that he ran out of his [place] and his Xanax. He's been out of his supply for the last 2-3 days. He tried to call his primary care physician for refill who sent him in for evaluation. Patient has been seen here numerous times in the past for medication refills and has demonstrated drug-seeking behavior in the past. The patient states that he feels shaky and nervous. He's been on these medications for some time. He denies fever, chills, headache, changes in vision, URI symptoms, shortness of breath, cough, chest pain, nausea, vomiting, diarrhea, pain or burning with urination. - Related Data Home Medications Medication Instructions Recorded Confirmed Folic Acid 1 mg PO DAILY 05/23/16 03/06/17 Gabapentin 600 mg PO BID 05/23/16 03/06/17 QUEtiapine FUMARATE [SEROquel] 300 mg PO HS 08/01/16 03/06/17 HYDROcodone/APAP 7.5-325MG [[place] 2 tab PO BID PRN 08/25/16 03/06/17 7.5-325] Previous Rx's Medication Instructions Recorded ALPRAZolam [Xanax] 1 mg PO Q8H PRN #15 tablet 04/08/16 Pantoprazole [Protonix] 40 mg PO DAILY #30 tablet. 04/09/16 hydrOXYzine PAMOATE [Vistaril] 50 mg PO HS 14 Days capsule 04/09/16 ALPRAZolam [Xanax] 1 mg PO Q12HR PRN #2 tab 03/06/17 HYDROcodone/APAP 7.5-325MG [[place] 1 tab PO Q12HR PRN #2 tab 03/06/17 7.5-325] Allergies Allergy/AdvReac Type Severity Reaction Status Date / Time No Known Allergies Allergy Verified 03/06/17 11:19 Review of Systems ROS Statement: Those systems with pertinent positive or pertinent negative responses have been documented in the HPI. ROS Other: All systems not noted in ROS Statement are negative. Past Medical History Additional Past Medical History / Comment(s): chronic back pain; Perforated bowel History of Any Multi-Drug Resistant Organisms: None Reported Past Surgical History: Bowel Resection, Joint Replacement, Orthopedic Surgery Additional Past Surgical History / Comment(s): left hip, right hip compound fracture Past Anesthesia/Blood Transfusion Reactions: No Reported Reaction Past Psychological History: Anxiety, Bipolar, Depression Smoking Status: Current every day smoker Past Alcohol Use History: None Reported Past Drug Use History: None Reported - Past Family History Mother Family Medical History: No Reported History General Exam Limitations: no limitations General appearance: alert, in no apparent distress, other (Nontoxic appearing) Head exam: Present: atraumatic, normocephalic, normal inspection Eye exam: Present: normal appearance, PERRL, EOMI. Absent: scleral icterus, conjunctival injection, periorbital swelling ENT exam: Present: normal exam, mucous membranes moist Neck exam: Present: normal inspection. Absent: tenderness, meningismus, lymphadenopathy Respiratory exam: Present: normal lung sounds bilaterally. Absent: respiratory distress, wheezes, rales, rhonchi, stridor Cardiovascular Exam: Present: regular rate, normal rhythm, normal heart sounds. Absent: systolic murmur, diastolic murmur, rubs, gallop, clicks GI/Abdominal exam: Present: soft, normal bowel sounds. Absent: distended, tenderness, guarding, rebound, rigid Extremities exam: Present: normal inspection, full ROM, normal capillary refill. Absent: tenderness, pedal edema, joint swelling, calf tenderness Back exam: Present: normal inspection Neurological exam: Present: alert, oriented X3, CN II-XII intact, other ( Cranial nerves II through XII grossly intact without focal neurological deficits. He moves all 4 extremities. His gait appears intact. He does have a slight tremor which she states is at his baseline.) Psychiatric exam: Present: normal affect, normal mood Skin exam: Present: warm, dry, intact, normal color. Absent: rash Course Vital Signs 03/06/17 11:03 Temperature 98.3 F Pulse Rate 90 Respiratory 20 Rate O2 Sat by Pulse 96 Oximetry Medical Decision Making - Medical Decision Making Patient is a 56-year-old male who presents for evaluation for medication refill. Instructed to come in by his primary care physician per the patient. Had a lengthy discussion about narcotic and benzodiazepine abuse. Per chart review he has been evaluated for this in the past and sometimes receives prescriptions for benzodiazepines and [place]. I discussed that I am unwilling to write him a long-term supply of these medications due to the risks of overdose and abuse. I instructed him to contact his primary care physician for a full-term refill. As he is demonstrated some drug-seeking behavior in the past, we'll also have him follow-up with a pain specialist which the patient is amenable to seeing. We'll write him a 1 day supply of his benzodiazepines and [place]. I discussed specific signs and symptoms on when to return to emergency department for further evaluation. Voiced understanding and will follow-up with both his primary care physician and a pain specialist. Disposition Clinical Impression: Medication refill Disposition: HOME SELF-CARE Condition: Good Instructions: Benzodiazepine Abuse (ED), Narcotic Abuse (ED) Prescriptions: ALPRAZolam [Xanax] 1 mg PO Q12HR PRN #2 tab PRN Reason: Anxiety HYDROcodone/APAP 7.5-325MG [[place] 7.5-325] 1 tab PO Q12HR PRN #2 tab PRN Reason: Pain Referrals: Fatoumata Copeland MD [Primary Care Provider] - 1-2 days Veronica Page MD [STAFF PHYSICIAN] - 1-2 days
[2017-03-06 11:51] VITALS: BP 155/97; PULSE 79; RESP 16; TEMP 98.9
== END 2017-03-06 11:50 | disposition home or self-care (01) ==
LOC: EC 10:38
DX: Z76.0 Encounter for issue of repeat prescription (principal); F17.200 Nicotine dependence, unspecified, uncomplicated; Z79.899 Other long term (current) drug therapy
CPT/HCPCS: 99281

== ENCOUNTER 2017-03-24 15:11 | Emergency (ER) | payer MEDICARE, OTHER ==
[2017-03-24 15:19] VITALS: BP 136/86; PULSE 86; RESP 18; TEMP 98.4
--- NOTE | 2017-03-24 16:03 | ED ---
General Adult HPI - General Chief complaint: Recheck/Abnormal Lab/Rx Stated complaint: med withdrawal Time Seen by Provider: 03/24/17 15:37 Source: patient, RN notes reviewed, old records reviewed Mode of arrival: ambulatory Limitations: no limitations - History of Present Illness Initial comments: Patient's a 56-year-old male significant past medical history for anxiety. States he was on Xanax and [place] for pain. Patient states that his family doctor was writing him prescriptions. States 2 weeks ago she gave him a 10 day supply which she finished yesterday. States that she wanted him to see a psychiatrist. He states he did go to the psychiatrist who rolled her medications for Klonopin and for Seroquel. He states he does not like how these made him feel very states he doesn't want feel like a "zombie". Patient states that he was hoping to be admitted today to be placed back on his medications. Patient denies any other complaints or symptoms. Patient denies any recent fever, chills, shortness of breath, chest pain, abdominal pain, nausea or vomiting, headaches or visual changes, or any other complaints. - Related Data Home Medications Medication Instructions Recorded Confirmed Folic Acid 1 mg PO DAILY 05/23/16 03/06/17 Gabapentin 600 mg PO BID 05/23/16 03/06/17 QUEtiapine FUMARATE [SEROquel] 300 mg PO HS 08/01/16 03/06/17 HYDROcodone/APAP 7.5-325MG [[place] 2 tab PO BID PRN 08/25/16 03/06/17 7.5-325] Previous Rx's Medication Instructions Recorded ALPRAZolam [Xanax] 1 mg PO Q8H PRN #15 tablet 04/08/16 Pantoprazole [Protonix] 40 mg PO DAILY #30 tablet. 04/09/16 hydrOXYzine PAMOATE [Vistaril] 50 mg PO HS 14 Days capsule 04/09/16 ALPRAZolam [Xanax] 1 mg PO Q12HR PRN #2 tab 03/06/17 HYDROcodone/APAP 7.5-325MG [[place] 1 tab PO Q12HR PRN #2 tab 03/06/17 7.5-325] Allergies Allergy/AdvReac Type Severity Reaction Status Date / Time No Known Allergies Allergy Verified 03/24/17 15:19 Review of Systems ROS Statement: Those systems with pertinent positive or pertinent negative responses have been documented in the HPI. ROS Other: All systems not noted in ROS Statement are negative. Past Medical History Additional Past Medical History / Comment(s): chronic back pain; Perforated bowel History of Any Multi-Drug Resistant Organisms: None Reported Past Surgical History: Bowel Resection, Joint Replacement, Orthopedic Surgery Additional Past Surgical History / Comment(s): left hip, right hip compound fracture Past Anesthesia/Blood Transfusion Reactions: No Reported Reaction Past Psychological History: Anxiety, Bipolar, Depression Smoking Status: Current every day smoker Past Alcohol Use History: None Reported Past Drug Use History: None Reported - Past Family History Mother Family Medical History: No Reported History General Exam - General Exam Comments Initial Comments: General: The patient is awake and alert, in no distress, and does not appear acutely ill. Eye: Pupils are equal, round and reactive to light, extra-ocular movements are intact. No nystagmus. There is normal conjunctiva bilaterally. No signs of icterus. Ears, nose, mouth and throat: There are moist mucous membranes and no oral lesions. Neck: The neck is supple, there is no tenderness or JVD. Cardiovascular: There is a regular rate and rhythm. No murmur, rub or gallop is appreciated. Respiratory: Lungs are clear to auscultation, respirations are non-labored, breath sounds are equal. No wheezes, stridor, rales, or rhonchi. Musculoskeletal: Normal ROM, no tenderness. Strength 5/5. Sensation intact. Pulses equal bilaterally 2+. Neurological: A&O x 3. CN II-XII intact, There are no obvious motor or sensory deficits. Coordination appears grossly intact. Speech is normal. Skin: Skin is warm and dry and no rashes or lesions are noted. Psychiatric: Cooperative, appropriate mood & affect, normal judgment. Limitations: no limitations Course Vital Signs 03/24/17 15:17 Temperature 98.4 F Pulse Rate 86 Respiratory 18 Rate Blood Pressure 136/86 O2 Sat by Pulse 98 Oximetry Medical Decision Making - Medical Decision Making Long conversation had with the patient about following up with his family doctor. Advised him that he does need follow-up family doctor and psychiatrist. Advised him that he needs to use medications that were previously prescribed. Patient has had multiple visits for same here in the emergency room most recently 2 weeks ago when he is advised that we could not with his medication. Disposition Clinical Impression: Medication refill, Anxiety Disposition: HOME SELF-CARE Condition: Good Instructions: Anxiety (ED) Additional Instructions: Please use medications as discussed and follow-up with family doctor and psychiatrist tomorrow. Please return to emergency room for any other concerns. Referrals: Fatoumata Copeland MD [Primary Care Provider] - 1-2 days Time of Disposition: 16:03
== END 2017-03-24 16:08 | disposition home or self-care (01) ==
LOC: EC 15:11
DX: F41.9 Anxiety disorder, unspecified (principal); Z76.0 Encounter for issue of repeat prescription; F31.9 Bipolar disorder, unspecified; F17.200 Nicotine dependence, unspecified, uncomplicated; Z79.899 Other long term (current) drug therapy
CPT/HCPCS: 99284

== ENCOUNTER 2017-04-14 15:59 | Emergency (ER) | payer MEDICARE, OTHER ==
[2017-04-14 16:17] VITALS: TEMP 98.1
[2017-04-14] MEDS ORDERED: ALPRAZolam 0.5 MG TAB PO STA (16:36)
--- NOTE | 2017-04-14 17:09 | ED ---
Psych HPI - General Chief Complaint: Psychiatric Symptoms Stated Complaint: Mental Health Time Seen by Provider: 04/14/17 16:25 Source: patient Mode of arrival: ambulatory - History of Present Illness Initial Comments: This 57-year-old white male presents complaining of anxiety. He states that he has been out of his Xanax one milligrams twice a day for the past 1-2 weeks. He feels very stressed out. He also is having some degree of depression but denies any suicidal ideations. He states that he previously was getting up from his primary care physician and he has been on it for 20+ years but they recently told him that he could no longer get it filled through them. He saw a new primary care physician today but they sent him to the ER for further evaluation. He denies any current medical complaints. No other modifying factors. - Related Data Home Medications Medication Instructions Recorded Confirmed Gabapentin 600 mg PO BID 05/23/16 04/14/17 QUEtiapine FUMARATE [SEROquel] 300 mg PO HS 08/01/16 04/14/17 clonazePAM [KlonoPIN] 0.5 mg PO BID 04/14/17 04/14/17 hydrOXYzine PAMOATE [Vistaril] 25 mg PO DAILY 04/14/17 04/14/17 lamoTRIgine [LaMICtal] 25 mg PO HS 04/14/17 04/14/17 Previous Rx's Medication Instructions Recorded Pantoprazole [Protonix] 40 mg PO DAILY #30 tablet. 04/09/16 ALPRAZolam [Xanax] 1 mg PO Q12H PRN #14 tab 04/14/17 Allergies Allergy/AdvReac Type Severity Reaction Status Date / Time No Known Allergies Allergy Verified 04/14/17 16:17 Review of Systems ROS Statement: Those systems with pertinent positive or pertinent negative responses have been documented in the HPI. ROS Other: All systems not noted in ROS Statement are negative. Past Medical History Additional Past Medical History / Comment(s): chronic back pain; Perforated bowel History of Any Multi-Drug Resistant Organisms: None Reported Past Surgical History: Bowel Resection, Joint Replacement, Orthopedic Surgery Additional Past Surgical History / Comment(s): left hip, right hip compound fracture Past Anesthesia/Blood Transfusion Reactions: No Reported Reaction Past Psychological History: Anxiety, Bipolar, Depression Smoking Status: Current every day smoker Past Alcohol Use History: None Reported Past Drug Use History: None Reported - Past Family History Mother Family Medical History: No Reported History General Exam - General Exam Comments Initial Comments: GENERAL: The patient is well nourished and well hydrated. VITAL SIGNS: Heart rate, blood pressure, respiratory rate reviewed as recorded in nurse's notes. EYES: Pupils are round and reactive. Extraocular movements are intact. No conjunctival / lid redness or swelling. ENT: No external evidence of injury, swelling, or ecchymosis. Airway is patent. Throat is clear. NECK: Nontender. No swelling or evidence of injury. No subcutaneous emphysema. Trachea is midline. No thyroid mass. HEART: Regular rate and rhythm. Good peripheral pulses. LUNGS/CHEST: Breath sounds clear and equal bilaterally. No rales, rhonchi, or wheezes. No ecchymosis, subcutaneous emphysema, or tenderness. ABDOMEN: Abdomen soft without tenderness. No palpable masses or organomegaly. No peritoneal signs. No abdominal wall swelling or ecchymosis. EXTREMITIES: No extremity tenderness. Normal muscle tone and function. No thoracolumbar tenderness. NEUROLOGIC: Sensation is grossly intact. Cranial nerve exam reveals face is symmetrical, tongue is midline, speech is clear. SKIN: No abrasions or ecchymosis is noted. No induration or masses noted. PSYCHIATRIC: Alert and oriented. Appropriate behavior and judgment. He does appear moderately anxious. Limitations: no limitations Course Vital Signs 04/14/17 16:15 Temperature 98.1 F Pulse Rate 90 Respiratory 20 Rate Blood Pressure 141/93 O2 Sat by Pulse 98 Oximetry Medical Decision Making - Medical Decision Making The patient was seen and examined. All diagnostics were reviewed. He does receive Xanax 1 mg orally in the ER. The case is discussed with the psychiatric nurse. They do not feel as though he needs admission at this time. He further is requesting some [place]. This is refused. Old records are reviewed. It appears that he is here quite often requesting benzodiazepine and narcotic refills. A nap she report is done and this does show that he's had multiple prescriptions previously for benzodiazepines and narcotics. He has 69 different prescriptions over the last 2 years with 19 different providers. He is in the process of changing to a new physician at this time and just saw him for the first time today. This felt as though at this point in time he benefit from additional Xanax and will prescribe him a one-week supply to get through until he sees his physician. He is further counseled that no further narcotics or benzodiazepine prescriptions will be provided to the emergency department. He leaves in no identifiable distress. - Lab Data Lab Results 04/14/17 Range/Units 17:33 Urine Opiates Screen Detected H (NotDetected) Ur Oxycodone Screen Not Detected (NotDetected) Urine Methadone Screen Not Detected (NotDetected) Ur Propoxyphene Screen Not Detected (NotDetected) Ur Barbiturates Screen Not Detected (NotDetected) U Tricyclic Antidepress Detected H (NotDetected) Ur Phencyclidine Scrn Not Detected (NotDetected) Ur Amphetamines Screen Not Detected (NotDetected) U Methamphetamines Scrn Not Detected (NotDetected) U Benzodiazepines Scrn Not Detected (NotDetected) Urine Cocaine Screen Not Detected (NotDetected) U Marijuana (THC) Screen Not Detected (NotDetected) Disposition Clinical Impression: Acute anxiety, Depression, Hypertension Disposition: HOME SELF-CARE Condition: Good Instructions: Depression (ED), Hypertension (ED), Anxiety (ED) Prescriptions: ALPRAZolam [Xanax] 1 mg PO Q12H PRN #14 tab PRN Reason: Anxiety Referrals: Uriel Ramos MD [Primary Care Provider] - 1-2 days Time of Disposition: 18:26
[2017-04-14 18:00] LABS: Amphetamine Screen,Urine Not Detected (NotDetected); Barbiturate Screen,Urine Not Detected (NotDetected); Benzodiazepines Screen,Urine Not Detected (NotDetected); Cocaine Screen,Urine Not Detected (NotDetected); Methadone Screen, Urine Not Detected (NotDetected); Opiate Screen,Urine Detected (NotDetected); Oxycodone Screen, Urine Not Detected (NotDetected); Phencyclidine Screen,Urine Not Detected (NotDetected); Tricyclic Antidepressant,Urine Detected (NotDetected); Urn Cannabinoid Scrn Not Detected (NotDetected)
[2017-04-14] MEDS ORDERED: ACETAMINOPHEN TAB 500 MG TAB PO STA (18:23)
[2017-04-14 18:52] VITALS: BP 135/90; PULSE 72; RESP 16
== END 2017-04-14 18:52 | disposition home or self-care (01) ==
LOC: EC 15:59
DX: F41.9 Anxiety disorder, unspecified (principal); F31.9 Bipolar disorder, unspecified; I10 Essential (primary) hypertension; F17.200 Nicotine dependence, unspecified, uncomplicated; Z79.899 Other long term (current) drug therapy
CPT/HCPCS: 80306; 99284

== ENCOUNTER 2017-04-21 14:13 | Inpatient (IN) | payer MEDICARE, MEDICAID ==
--- NOTE | 2017-04-21 15:01 | ED ---
General Adult HPI - General Source: patient, RN notes reviewed Mode of arrival: ambulatory Limitations: no limitations <Herbert Conteh - Last Filed: 04/28/17 00:06> <Herbert Marroquin - Last Filed: 05/29/17 23:16> - General Chief complaint: Psychiatric Symptoms Stated complaint: psych Time Seen by Provider: 04/21/17 14:15 - History of Present Illness Initial comments: This a 57-year-old male presents emergency department stating that he is on Xanax and [place] chronically he has been taking out for his primary medical care doctor and he does not know why. Patient states she came to the ER once last week and they gave him Xanax and he ran out of Xanax this morning but they were only 1 mg not 2 mg he is accustomed to. Patient states he believes he is withdrawing from the [place] on Xanax and because of this he is suicidal. Patient does not currently have a plan but he states if he cannot get any more of his medications he does fear for his life. Patient denies any illegal drug use. Patient denies any drinking. Patient denies any physical complaints today. Patient denies any headache patient denies chest pain palpitations difficulty breathing shortness of breath. Patient denies abdominal pain patient denies nausea vomiting diarrhea per patient denies any recent fever chills or cough. (Herbert Conteh) - Related Data Home Medications Medication Instructions Recorded Confirmed Gabapentin 600 mg PO BID 05/23/16 04/21/17 Previous Rx's Medication Instructions Recorded Pantoprazole [Protonix] 40 mg PO DAILY #30 tablet. 04/09/16 Divalproex ER [Depakote ER] 500 mg PO BID #60 tab.er.24h 04/24/17 Ibuprofen [Motrin] 800 mg PO TID #90 tab 04/24/17 Imipramine [Tofranil] 25 mg PO HS #30 tab 04/24/17 Nicotine 21Mg/24Hr Patch [Habitrol] 1 patch TRANSDERM DAILY patch 04/24/17 OLANZapine [ZyPREXA] 5 mg PO TID #90 tab 04/24/17 Allergies Allergy/AdvReac Type Severity Reaction Status Date / Time No Known Allergies Allergy Verified 04/21/17 20:50 Review of Systems ROS Other: All systems not noted in ROS Statement are negative. <Herbert Conteh - Last Filed: 04/28/17 00:06> ROS Other: All systems not noted in ROS Statement are negative. <Herbert Marroquin Joaquin - Last Filed: 05/29/17 23:16> ROS Statement: Those systems with pertinent positive or pertinent negative responses have been documented in the HPI. Past Medical History Additional Past Medical History / Comment(s): chronic back pain; Perforated bowel History of Any Multi-Drug Resistant Organisms: None Reported Past Surgical History: Bowel Resection, Joint Replacement, Orthopedic Surgery Additional Past Surgical History / Comment(s): left hip, right hip compound fracture Past Anesthesia/Blood Transfusion Reactions: No Reported Reaction Past Psychological History: Anxiety, Bipolar, Depression Smoking Status: Current every day smoker Past Alcohol Use History: None Reported Past Drug Use History: None Reported - Past Family History Mother Family Medical History: No Reported History <Herbert Conteh - Last Filed: 04/28/17 00:06> General Exam Limitations: no limitations <Marcel Contehe - Last Filed: 04/28/17 00:06> <RosemarydeepaMarcelrosemary Nuñez - Last Filed: 05/29/17 23:16> - General Exam Comments Initial Comments: GENERAL: Patient is well-developed and well-nourished. Patient is nontoxic and well- hydrated and is in no acute distress. ENT Neck is soft and supple. No significant lymphadenopathy is noted. Oropharynx is clear. Moist mucous membranes. Neck has full range of motion without eliciting any pain. EYES: The sclera were anicteric and conjunctiva were pink and moist. Extraocular movements were intact and pupils were equal round and reactive to light. Eyelids were unremarkable. PULMONARY: Unlabored respirations. Good breath sounds bilaterally. No audible rales rhonchi or wheezing was noted. CARDIOVASCULAR: There is a regular rate and rhythm without any murmurs gallops or rubs. ABDOMEN: Soft and nontender with normal bowel sounds. No palpable organomegaly was noted. There is no palpable pulsatile mass. SKIN: Skin is clear with no lesions or rashes and otherwise unremarkable. NEUROLOGIC: Patient is alert and oriented x3. Cranial nerves II through XII are grossly intact. Motor and sensory are also intact. Normal speech, volume and content. Symmetrical smile. MUSCULOSKELETAL: Normal extremities with adequate strength and full range of motion. No lower extremity swelling or edema. No calf tenderness. LYMPHATICS: No significant lymphadenopathy is noted PSYCHIATRIC: Patient states he is suicidal. Patient appears mildly anxious (Herbert Conteh) Vital Signs 04/21/17 04/21/17 14:41 18:18 Temperature 98.2 F 98.3 F Pulse Rate 83 70 Respiratory 18 16 Rate Blood Pressure 169/105 149/89 O2 Sat by Pulse 97 96 Oximetry Medical Decision Making - Lab Data Result diagrams: 04/22/17 07:42 04/22/17 07:42 <Herbert Conteh - Last Filed: 04/28/17 00:06> - Lab Data Result diagrams: 04/22/17 07:42 04/22/17 07:42 <Herbert Marroquin - Last Filed: 05/29/17 23:16> - Medical Decision Making Dr. Marroquin will take over the care of this patient at 5 PM (Herbert Conteh) 57 male who was seen and evaluated with psychiatry, patient will be admitted for psychiatric evaluation and treatment (Herbert Marroquin) - Lab Data Lab Results 04/21/17 Range/Units 14:55 Urine Opiates Screen Not Detected (NotDetected) Ur Oxycodone Screen Not Detected (NotDetected) Urine Methadone Screen Not Detected (NotDetected) Ur Propoxyphene Screen Not Detected (NotDetected) Ur Barbiturates Screen Not Detected (NotDetected) U Tricyclic Antidepress Detected H (NotDetected) Ur Phencyclidine Scrn Not Detected (NotDetected) Ur Amphetamines Screen Not Detected (NotDetected) U Methamphetamines Scrn Not Detected (NotDetected) U Benzodiazepines Scrn Detected H (NotDetected) Urine Cocaine Screen Not Detected (NotDetected) U Marijuana (THC) Screen Not Detected (NotDetected) Disposition <Herbert Conteh - Last Filed: 04/28/17 00:06> <Herbert Marroquin - Last Filed: 05/29/17 23:16> Clinical Impression: Benzodiazepine withdrawal, Acute anxiety, Depression, Suicidal ideation Disposition: TRANSFER TO PSYCH HOSP/UNIT Condition: Fair
[2017-04-21 15:39] LABS: Amphetamine Screen,Urine Not Detected (NotDetected); Barbiturate Screen,Urine Not Detected (NotDetected); Benzodiazepines Screen,Urine Detected (NotDetected); Cocaine Screen,Urine Not Detected (NotDetected); Methadone Screen, Urine Not Detected (NotDetected); Opiate Screen,Urine Not Detected (NotDetected); Oxycodone Screen, Urine Not Detected (NotDetected); Phencyclidine Screen,Urine Not Detected (NotDetected); Tricyclic Antidepressant,Urine Detected (NotDetected); Urn Cannabinoid Scrn Not Detected (NotDetected)
[2017-04-21] MEDS ORDERED: ACETAMINOPHEN TAB 500 MG TAB PO STA (17:10)
[2017-04-21] MEDS ORDERED: ALPRAZolam 0.25 MG TAB PO STA (18:20)
[2017-04-21] MEDS ORDERED: MAGNESIUM HYDROXIDE 2,400 MG/10 ML CUP PO PRN (19:15)
[2017-04-21] MEDS ORDERED: MAG HYDROX/AL HYDROX/SIMETH 30 ML CUP PO PRN (19:15)
[2017-04-21] MEDS ORDERED: lamoTRIgine 25 MG TAB PO SCH (21:00)
[2017-04-21] MEDS ORDERED: QUEtiapine 100 MG TAB PO SCH (21:00)
[2017-04-21] MEDS ORDERED: hydrOXYzine PAMOATE 25 MG CAP PO SCH (21:00)
[2017-04-21] MEDS: GABAPENTIN 300 MG CAP PO SCH (21:10)
[2017-04-21] MEDS: LORazepam 1 MG TAB PO PRN (21:13)
[2017-04-22] MEDS: ACETAMINOPHEN TAB 325 MG TAB PO PRN ×2 (06:30→11:37)
[2017-04-22] MEDS: LORazepam 1 MG TAB PO PRN ×2 (06:30→13:08)
[2017-04-22 08:09] LABS: Basophils % (A) 1 %; Eosinophils # (A) 0.3 k/uL (0-0.7); Eosinophils % (A) 6 %; HCT 41.7 % (39.0-53.0); HGB 14.3 gm/dL (13.0-17.5); Lymphocytes # (A) 1.7 k/uL (1.0-4.8); Lymphocytes % (A) 38 %; MCH 30.6 pg (25.0-35.0); MCHC 34.2 g/dL (31.0-37.0); MCV 89.5 fL (80.0-100.0); Mean Platelet Volume 6.8; Monocytes # (A) 0.4 k/uL (0-1.0); Monocytes % (A) 8 %; Neutrophils # (A) 1.9 k/uL (1.3-7.7); Neutrophils % (A) 44 %; Platelet Count 248 k/uL (150-450); RBC 4.66 m/uL (4.30-5.90); RDW 14.1 % (11.5-15.5); WBC 4.4 k/uL (3.8-10.6)
[2017-04-22] MEDS: PANTOPRAZOLE 40 MG TABLET PO SCH (08:32)
[2017-04-22] MEDS: GABAPENTIN 300 MG CAP PO SCH ×2 (08:32→20:15)
[2017-04-22 08:38] LABS: ALT 28 U/L (21-72); AST 18 U/L (17-59); Alkaline Phosphatase 51 U/L (38-126); Anion Gap 8 mmol/L; Blood Urea Nitrogen 15 mg/dL (9-20); Calcium 9.8 mg/dL (8.4-10.2); Carbon Dioxide 31 mmol/L (22-30); Chloride 104 mmol/L (98-107); Cholesterol 206 mg/dL (<200); Glucose 101 mg/dL (74-99); HDL Cholesterol 50 mg/dL (40-60); LDL Cholesterol,Calculated 95 mg/dL (0-99); Potassium 4.7 mmol/L (3.5-5.1); Sodium 143 mmol/L (137-145); Total Bilirubin 0.3 mg/dL (0.2-1.3); Total Protein 6.6 g/dL (6.3-8.2); Triglycerides 306 mg/dL (<150)
[2017-04-22] MEDS: FOLIC ACID 1 MG TAB PO SCH (11:36)
[2017-04-22] MEDS ORDERED: traMADol 50 MG TAB PO PRN (11:50)
--- NOTE | 2017-04-22 11:57 | P.CONS ---
History of Present Illness - Reason for Consult medical clearance - History of Present Illness patient is admitted to psychiatric floor for management of his psychiatric issues. Patient denied any chest pain nausea abdominal pain patient is comparing of pain in the left shoulder area patient denied any fever chills patient and dysuria cough. Patient is a known patient to me from his previous hospitalizations and colonic surgery in the past. Review of Systems REVIEW OF SYSTEMS: CONSTITUTIONAL: No fever, no malaise, no fatigue. HEENT: No recent visual problems or hearing problems. Denied any sore throat. CARDIOVASCULAR: No chest pain, orthopnea, PND, no palpitations, no syncope. PULMONARY: No shortness of breath, no cough, no hemoptysis. GASTROINTESTINAL: No diarrhea, no nausea, no vomiting, no abdominal pain. Normoactive bowel sounds. NEUROLOGICAL: No headaches, no weakness, no numbness. HEMATOLOGICAL: Denies any bleeding or petechiae. GENITOURINARY: Denies any burning micturition, frequency, or urgency. MUSCULOSKELETAL/RHEUMATOLOGICAL: as mentioned in HPI ENDOCRINE: Denies any polyuria or polydipsia. The rest of the 14-point review of systems is negative. Past Medical History Past Medical History: Eye Disorder, GI Bleed Additional Past Medical History / Comment(s): chronic back pain; Perforated bowel History of Any Multi-Drug Resistant Organisms: None Reported Past Surgical History: Bowel Resection, Joint Replacement, Orthopedic Surgery Additional Past Surgical History / Comment(s): left hip, right hip compound fracture Past Anesthesia/Blood Transfusion Reactions: No Reported Reaction Smoking Status: Current every day smoker - Past Family History Mother Family Medical History: No Reported History Medications and Allergies Home Medications Medication Instructions Recorded Confirmed Type Pantoprazole [Protonix] 40 mg PO DAILY #30 tablet. 04/09/16 04/21/17 Rx Gabapentin 600 mg PO BID 05/23/16 04/21/17 History QUEtiapine FUMARATE [SEROquel] 300 mg PO HS 08/01/16 04/21/17 History ALPRAZolam [Xanax] 1 mg PO Q12H PRN #14 tab 04/14/17 04/21/17 Rx clonazePAM [KlonoPIN] 0.5 mg PO BID 04/14/17 04/21/17 History hydrOXYzine PAMOATE [Vistaril] 25 mg PO HS 04/14/17 04/21/17 History lamoTRIgine [LaMICtal] 25 mg PO HS 04/14/17 04/21/17 History Folic Acid 1 mg PO DAILY 04/21/17 04/21/17 History Allergies Allergy/AdvReac Type Severity Reaction Status Date / Time No Known Allergies Allergy Verified 04/21/17 20:50 Physical Exam Vitals: Vital Signs Temp Pulse Pulse Resp BP BP Pulse Ox 04/22/17 07:06 97.9 F 74 16 114/79 04/21/17 20:52 159/80 04/21/17 18:40 97.6 F 69 18 168/107 04/21/17 18:18 98.3 F 70 16 149/89 96 04/21/17 14:41 98.2 F 83 18 169/105 97 Intake and Output 04/21/17 04/22/17 04/22/17 22:59 06:59 14:59 Other: Weight 73.057 kg PHYSICAL EXAMINATION: GENERAL: The patient is alert and oriented x3, not in any acute distress. Well developed, well nourished. HEENT: Pupils are round and equally reacting to light. EOMI. No scleral icterus. No conjunctival pallor. Normocephalic, atraumatic. No pharyngeal erythema. No thyromegaly. CARDIOVASCULAR: S1 and S2 present. No murmurs, rubs, or gallops. PULMONARY: Chest is clear to auscultation, no wheezing or crackles. ABDOMEN: Soft, nontender, nondistended, normoactive bowel sounds. No palpable organomegaly. MUSCULOSKELETAL: No joint swelling or deformity. EXTREMITIES: No cyanosis, clubbing, or pedal edema. NEUROLOGICAL: Gross neurological examination did not reveal any focal deficits. SKIN: No rashes. Results CBC & Chem 7: 04/22/17 07:42 04/22/17 07:42 Labs: Abnormal Lab Results - Last 24 Hours (Table) 04/21/17 04/22/17 Range/Units 14:55 07:42 Carbon Dioxide 31 H (22-30) mmol/L Glucose 101 H (74-99) mg/dL Triglycerides 306 H (<150) mg/dL Cholesterol 206 H (<200) mg/dL U Tricyclic Antidepress Detected H (NotDetected) U Benzodiazepines Scrn Detected H (NotDetected) Assessment and Plan Plan: -depression management as per primary service -Left shoulder pain shoulder exam is essentially within normal limits we'll use when necessary tramadol for that -History of colonic resection in the past no acute events at this point of time -Gastroesophageal reflux disease: Patient is on Protonix to be continued -nicotine abuse: Counseling was provided
[2017-04-22] MEDS: NICOTINE 21MG/24HR PATCH TRANSDERM SCH (13:27)
[2017-04-22] MEDS ORDERED: DIVALPROEX ER 500 MG TAB.ER.24H PO STA (17:15)
[2017-04-22] MEDS: IBUPROFEN 800 MG TAB PO SCH ×2 (18:39→21:06)
[2017-04-22] MEDS: OLANZapine 5 MG TAB PO SCH ×2 (18:39→21:06)
--- NOTE | 2017-04-22 18:42 | HP ---
HISTORY AND PHYSICAL IDENTIFYING DATA: The patient is a 57-year-old male. He lives with his sister. He was seen in the emergency room and referred for followup. CHIEF COMPLAINT: The patient has had long-term problems with depression and anxiety. He has had significant increase in anxiety with discontinuation of his Xanax which had been prescribed by Primary Care. He also has chronic pain issues and he was having significant panic symptoms. HISTORY OF PRESENTING ILLNESS: The patient has not had a prior psychiatric hospitalization. He says that he has had chronic anxiety most all of his life. He had been on Cymbalta at one point in the past. He says that he has been on Xanax or other benzodiazepines for a number of years. He had been taking Xanax 1 mg twice a day up until recently. In the past he had been prescribed Klonopin up to 2 mg twice a day. He also more recently has been prescribed what he called "sleep medicine," namely Vistaril 25 mg at bedtime and Seroquel 300 mg at bedtime. He says that he has had depression, anxiety and panic that all seem to be tied in with one another. He notes that anxiety got significantly worse when he went off the Xanax. He said his last regular Xanax use was about March 20. He had been on Xanax 1 mg twice a day. On March 10 his physician reduced his Xanax to 1 mg a day for 10 days and then the Xanax was discontinued. He did come into the emergency room later on in March because of anxiety issues. He said that he did not get any medications prescribed at that time. He returned to the ED April 14 and was prescribed Xanax 1 mg b.i.d., 14 tablets, no refills. So between March 20 and April 14 he was off Xanax completely. He says that in the past he has also taken opioid pain medications, namely [place] 750 mg tablets, though he says he has not been on that for a long time. He notes that he has been sleeping poorly. He has quite severe panic symptoms. He does have grief issues, in that his girlfriend is dying of serious medical issues. The patient notes that he has a past history of alcohol use. He did not identify his alcohol use as problematic, though he acknowledges that he drank fairly consistently over the years. He stopped drinking 10 years ago. He notes that his last Xanax was yesterday morning, a 1 mg tablet. He again presented to the emergency room with anxiety and panic complaints. He denied hallucinations or delusions. He did suggest that he has some PTSD issues from earlier in life. He denied any thoughts of harm to self or others. He is admitted for further evaluation. SUBSTANCE USE HISTORY: As above. PAST MEDICAL HISTORY AND REVIEW OF SYSTEMS: As per medical consultation of Dr. Cohn. FAMILY AND SOCIAL HISTORY: As above. The patient has been living with his sister. He had previously worked in [employer] and [employer] up to several years ago. He had multiple injuries to his extremities and also had a colon resection. He has been struggling with some left shoulder pain. MENTAL STATUS EXAMINATION: The patient gave fair eye contact. Psychomotor activity was slow. Speech was monotone. He answered questions with brief responses. His thoughts were clear, his affect flat, his mood down. He seemed moderately distressed. On cognitive exam, he was oriented x3 and alert. Recent and remote memory were intact. Attention and concentration were fair. He did make an effort to answer formal cognitive questions. Insight and judgment were fair, fund of knowledge and intellectual level average to slightly below average. PHYSICAL EXAMINATION: As per medical consultation of Dr. Cohn. ASSESSMENT: This 57-year-old male is diagnosed with depression that has been chronic and recurrent, complicated by anxiety and panic disorder. He has had long-term use of Xanax and is likely struggling with benzodiazepine dependence and acute benzodiazepine withdrawal. Strengths include that the patient has fairly good awareness of some of his anxiety issues. Weaknesses include being in acute withdrawal. DIAGNOSES: 1. Major depression, chronic and recurrent, severe, with acute exacerbation without psychotic features. 2. Panic disorder. 3. Benzodiazepine dependence and acute withdrawal from Xanax. 4. History of gastrointestinal bleed. 5. History of perforated bowel with colon resection. RECOMMENDATIONS: Patient will be admitted for comprehensive medical, psychiatric and psychosocial evaluation. We will engage the patient in individual and group therapeutic activities. I had an extensive discussion with the patient regarding treatment issues. The plan at this point is to focus primarily in helping the patient manage early withdrawal from Xanax. I will start the patient on Zyprexa 5 mg 3 times a day. The aim of Zyprexa is to help reduce physiologic stress response as it relates to Xanax withdrawal. In addition, I will start the patient on Depakote ER 500 mg twice a day. The aim of Depakote is to help stabilize mood as well as to provide prophylaxis to the risk of seizures from benzodiazepine withdrawal. The patient will also be started on Tofranil 25 mg at bedtime. The aim of Tofranil is to help improve sleep with its effects on improving sleep architecture. We will continue to focus on stabilization and discharge planning. MMIRVING / IJN: [id number] /
[2017-04-22 18:52] LABS: Hemoglobin A1C 5.7 % (4.0-6.0)
[2017-04-22] MEDS: IMIPRAMINE 25 MG TAB PO SCH (20:13)
[2017-04-22] MEDS: DIVALPROEX ER 500 MG TAB.ER.24H PO SCH (20:15)
[2017-04-23 06:58] VITALS: RESP 16
[2017-04-23] MEDS: NICOTINE 21MG/24HR PATCH TRANSDERM SCH (08:33)
[2017-04-23] MEDS: OLANZapine 5 MG TAB PO SCH ×3 (08:33→21:12)
[2017-04-23] MEDS: IBUPROFEN 800 MG TAB PO SCH ×3 (08:33→21:11)
[2017-04-23] MEDS: DIVALPROEX ER 500 MG TAB.ER.24H PO SCH ×2 (08:33→20:11)
[2017-04-23] MEDS: GABAPENTIN 300 MG CAP PO SCH ×2 (08:33→20:10)
[2017-04-23] MEDS: PANTOPRAZOLE 40 MG TABLET PO SCH (08:33)
[2017-04-23] MEDS: FOLIC ACID 1 MG TAB PO SCH (11:51)
[2017-04-23] MEDS: ACETAMINOPHEN TAB 325 MG TAB PO PRN (11:52)
--- NOTE | 2017-04-23 15:19 | PN ---
PROGRESS NOTE DATE OF SERVICE: 04/23/2017 CHIEF COMPLAINT: The patient has had long-term problems with depression and anxiety. He has had increase in anxiety with discontinuation of Xanax. He has had chronic pain issues and significant panic symptoms. INTERVAL HISTORY: Patient has been doing fair. He had a quiet evening last night. He slept fairly well. Today he has been up and about. He attends group. He tends to have a quiet low-ag manner. He will interact some with others. He seems to be doing reasonably well, in early withdrawal from Xanax. He has not had change in his general health. He tolerates his psychotropic medications. MENTAL STATUS: Patient gave good eye contact. Psychomotor activity was slowed. Speech was monotone. He answered questions with brief responses. His thoughts were clear. His affect blunted. His mood reserved. ASSESSMENT: I will continue the current diagnosis and treatment plan. Continue psychotropic medications the same. Patient appears to be doing fairly well with his medications. If he progresses, I would look to discharge the patient fairly soon. ARUNA / DEION: [id number] /
[2017-04-23] MEDS: IMIPRAMINE 25 MG TAB PO SCH (20:11)
[2017-04-23] MEDS ORDERED: hydrOXYzine PAMOATE 25 MG CAP PO STA (20:33)
[2017-04-24 07:03] VITALS: TEMP 98.1
[2017-04-24] MEDS: NICOTINE 21MG/24HR PATCH TRANSDERM SCH (07:54)
[2017-04-24] MEDS: OLANZapine 5 MG TAB PO SCH (07:55)
[2017-04-24] MEDS: DIVALPROEX ER 500 MG TAB.ER.24H PO SCH (07:55)
[2017-04-24] MEDS: IBUPROFEN 800 MG TAB PO SCH (07:55)
[2017-04-24] MEDS: GABAPENTIN 300 MG CAP PO SCH (07:55)
[2017-04-24] MEDS: PANTOPRAZOLE 40 MG TABLET PO SCH (07:56)
[2017-04-24 09:30] VITALS: BP 137/94; PULSE 94
[2017-04-24] MEDS: ACETAMINOPHEN TAB 325 MG TAB PO PRN (10:35)
[2017-04-24] MEDS: FOLIC ACID 1 MG TAB PO SCH (11:33)
--- NOTE | 2017-04-24 12:35 | DS ---
DISCHARGE SUMMARY DATE OF SERVICE: 04/24/2017 DATE OF ADMISSION: 04/21/2017 DATE OF DISCHARGE: 04/24/2017 ADMISSION AND DISCHARGE DIAGNOSES: 1. Major depression, chronic and recurrent, severe with acute exacerbation without psychotic features. 2. Panic disorder. 3. Benzodiazepine dependence, in acute withdrawal from Xanax. 4. History of gastrointestinal bleed. 5. History of perforated bowel with colon resection. HISTORY OF PRESENT ILLNESS: The patient is a 57-year-old male. He has had long-term problems with depression and anxiety. He had significant increase in anxiety when Xanax was recently discontinued by his primary care physician. He had been on Xanax 1 mg twice a day up until recently he described that he stopped his Xanax March 20, and he was without Xanax on April 14. He got an 1 week prescription of Xanax 1 mg twice a day, #14 tablets, no refills. On April 14 which he took up until they ran out. He also had been on [place] 750 mg tablets. He was unclear about the timeframe of that. He was having more problems after March 20 when he was off the Xanax. He did have an emergency room contact end of March and then returned as noted above. He suggested that he had issues with PTSD symptoms as well. He is admitted for further evaluation. PAST MEDICAL HISTORY AND PHYSICAL EXAM: As per medical consultation of Dr. Cohn. MENTAL STATUS EXAM: The patient gave fair eye contact. Psychomotor activity, slowed speech was monotone. He answered questions with brief responses. His thoughts were clear. Affect flat. Mood down. He seemed moderately distressed. Cognitive exam was clear. COURSE OF HOSPITALIZATION: Patient was admitted for comprehensive medical psychiatric and psychosocial evaluation. We engaged the patient in individual and group therapeutic activities on admission I started the patient on Zyprexa 5 mg 3 times a day. The aim of Zyprexa was to help reduce physiologic stress response as it related to acute Xanax withdrawal. He had previously been on Seroquel 300 mg a day, that was discontinued. I started the patient on Depakote ER 500 mg twice a day. The indication for Depakote was prophylaxis for seizure risks, relating to benzodiazepine withdrawal. Patient was having issues with poor sleep and some nightmares. I started him on Tofranil 25 mg at bedtime. The aim at Tofranil was to help improve sleep architecture to benefit sleep. Overall, the patient did fairly well during his hospitalization. He showed gradual improvement. He was sleeping better. He would come out in the day area. He interacted with others. He attended groups. He was appropriate in his manner. He felt that anxiety symptoms were less. He had a better outlook. He did not appear to be having significant withdrawal symptoms. We did review the time course of withdrawal and I discussed with him that I would anticipate continued withdrawal issues over the next 6 weeks though gradually tapering. Beyond that, he may continue to have some withdrawal symptoms though considerably less than currently. Patient talked of being motivated to continue off any benzodiazepines. Patient was in agreement with discharge plans. CONDITION AT DISCHARGE: Patient was stable. His mood was improved. He had a better outlook. He tolerated his medications well. RECOMMENDATIONS AND FOLLOWUP: The patient is discharged to home. He lives with his mother and sister. DISCHARGE MEDICATIONS: 1. Zyprexa 5 mg 3 times a day. 2. Tofranil 25 mg at bedtime. 3. Depakote ER 500 mg twice a day,'. 4. Neurontin 600 mg twice a day. 5. Motrin 800 mg 3 times a day p.r.n. 6. I discussed with the patient that I would recommend continuing Depakote for 2 months and after that to consult with his psychiatrist to possibly taper off Depakote. I also indicated that he could look at possibly taking more of his Zyprexa towards bedtime and less in the daytime if it did cause him some tiredness. He has a followup appointment with [facility]. ARUNA / DEION: [id number] /
== END 2017-04-24 13:53 | disposition home or self-care (01) | DRG 885 ==
LOC: EC 14:13 → 3MHU 18:12
PROVIDERS: ADMIT Psychiatry & Neurology Psychiatry; ATTEND Psychiatry & Neurology Psychiatry
DX: F33.2 Major depressive disorder, recurrent severe without psychotic features (principal); F13.239 Sedative, hypnotic or anxiolytic dependence with withdrawal, unspecified; F17.200 Nicotine dependence, unspecified, uncomplicated; F41.0 Panic disorder [episodic paroxysmal anxiety]; G89.29 Other chronic pain; Z79.899 Other long term (current) drug therapy; Z90.49 Acquired absence of other specified parts of digestive tract
CPT/HCPCS: 80053; 80061; 80306; 82075; 83036; 84443; 85025; 99285

== ENCOUNTER 2017-09-25 12:34 | Observation (INO) | payer MEDICARE, OTHER ==
[2017-09-25] MEDS ORDERED: ONDANSETRON 4 MG/2 ML VIAL IVP STA (12:58)
[2017-09-25] MEDS ORDERED: SODIUM CHLORIDE 0.9% 1,000 ML IV STA (12:58)
[2017-09-25 14:52] LABS: Basophils % (A) 0 %; Eosinophils % (A) 1 %; HCT 42.1 % (39.0-53.0); HGB 14.4 gm/dL (13.0-17.5); Lymphocytes % (A) 14 %; MCH 31.7 pg (25.0-35.0); MCHC 34.3 g/dL (31.0-37.0); MCV 92.6 fL (80.0-100.0); Mean Platelet Volume 6.5; Monocytes # (A) 0.2 k/uL (0-1.0); Monocytes % (A) 4 %; Neutrophils # (A) 5.4 k/uL (1.3-7.7); Neutrophils % (A) 81 %; Platelet Count 177 k/uL (150-450); RBC 4.55 m/uL (4.30-5.90); RDW 14.3 % (11.5-15.5); WBC 6.7 k/uL (3.8-10.6)
[2017-09-25 15:02] LABS: INR 1.2 (<1.2); Prothrombin Time 11.2 sec (9.0-12.0)
[2017-09-25 15:07] LABS: Partial Thromboplastin Time 21.5 sec (22.0-30.0)
[2017-09-25 15:18] LABS: ALT 24 U/L (21-72); AST 18 U/L (17-59); Albumin 4.7 g/dL (3.5-5.0); Alkaline Phosphatase 55 U/L (38-126); Anion Gap 11 mmol/L; Blood Urea Nitrogen 13 mg/dL (9-20); Calcium 9.7 mg/dL (8.4-10.2); Carbon Dioxide 25 mmol/L (22-30); Chloride 104 mmol/L (98-107); Glucose 107 mg/dL (74-99); Potassium 3.8 mmol/L (3.5-5.1); Sodium 140 mmol/L (137-145); Total Bilirubin 0.5 mg/dL (0.2-1.3); Total Protein 7.2 g/dL (6.3-8.2)
[2017-09-25 15:23] LABS: Creatine Kinase 112 U/L (55-170)
--- NOTE | 2017-09-25 15:35 | CT ---
EXAMINATION TYPE: CT brain wo con DATE OF EXAM: 09/25/2017 COMPARISON: 03/07/2012 INDICATION: Weakness DLP: 956.80 mGycm, Automated exposure control for dose reduction was used. CONTRAST: None CT of the brain is performed utilizing 3 mm thick sections through the posterior fossa and 3 mm thick sections through the remaining calvarium. Study is performed within 24 hours of arrival to the hosp [facility]. No abnormal hyperdensity is present to suggest an acute intracranial hemorrhage. No mass lesion is evident. No acute infarcts are evident. Ventricles and sulci are appropriate for the patient age. Paranasal sinuses and mastoid air cells within the [id number]-un-cofe are clear. IMPRESSIONS: 1. No acute intracranial process.
[2017-09-25 15:36] LABS: Creatine Kinase MB 1.7 ng/mL (0.0-2.4); Troponin I <0.012 ng/mL (0.000-0.034)
--- NOTE | 2017-09-25 15:46 | XR ---
EXAMINATION TYPE: XR chest 2V DATE OF EXAM: 09/25/2017 COMPARISON: 07/16/2016 INDICATION: Weakness blurred vision left eye TECHNIQUE: Frontal and lateral views of the chest are obtained. FINDINGS: The heart size is normal. The pulmonary vasculature is normal. The lungs are clear. IMPRESSION: 1. No acute pulmonary process.
--- NOTE | 2017-09-25 17:16 | ED ---
Weakness HPI - General Chief complaint: Weakness Stated complaint: weakness Time Seen by Provider: 09/25/17 12:50 Source: patient Mode of arrival: ambulatory Limitations: no limitations - History of Present Illness Initial comments: 57 years old gentleman comes in with a generalized weakness he said he is unable to walk heel DOWN stairs he needs to go down and come up the stairs also complaining about term confusion now with the last 24 hours he also had a headache and double vision for the last 24 hours denies any chest pain no shortness of breath no abdominal pain no frequency urgency dysuria him a no symptoms of TIA or CVA - Related Data Home Medications Medication Instructions Recorded Confirmed Gabapentin 600 mg PO BID 05/23/16 09/25/17 ARIPiprazole [Abilify] 15 mg PO DAILY 09/25/17 09/25/17 Metoprolol Succinate [Toprol XL] 25 mg PO HS 09/25/17 09/25/17 QUEtiapine FUMARATE [SEROquel] 300 mg PO HS 09/25/17 09/25/17 busPIRone HCl [Buspar] 10 mg PO HS 09/25/17 09/25/17 diphenhydrAMINE [Benadryl] 25 mg PO HS 09/25/17 09/25/17 lamoTRIgine [LaMICtal] 200 mg PO BID 09/25/17 09/25/17 Previous Rx's Medication Instructions Recorded Pantoprazole [Protonix] 40 mg PO DAILY #30 tablet. 04/09/16 Ibuprofen [Motrin] 800 mg PO TID #90 tab 04/24/17 Meclizine [Antivert] 25 mg PO TID PRN #30 tab 09/27/17 Allergies Allergy/AdvReac Type Severity Reaction Status Date / Time No Known Allergies Allergy Verified 09/25/17 12:55 Review of Systems ROS Statement: Those systems with pertinent positive or pertinent negative responses have been documented in the HPI. ROS Other: All systems not noted in ROS Statement are negative. Past Medical History Past Medical History: Eye Disorder, GI Bleed Additional Past Medical History / Comment(s): chronic back pain; Perforated bowel History of Any Multi-Drug Resistant Organisms: None Reported Past Surgical History: Bowel Resection, Joint Replacement, Orthopedic Surgery Additional Past Surgical History / Comment(s): left hip, right hip compound fracture Past Anesthesia/Blood Transfusion Reactions: No Reported Reaction Past Psychological History: Anxiety, Bipolar, Depression Smoking Status: Current every day smoker Past Alcohol Use History: None Reported Past Drug Use History: None Reported - Past Family History Mother Family Medical History: No Reported History General Exam - General Exam Comments Initial Comments: General: The patient is awake and alert, in no distress, looks pale and dehydrated Skin: Skin is warm and dry and no rashes or lesions are noted. Eye: Pupils are equal, round and reactive to light, extra-ocular movements are intact; there is normal conjunctiva bilaterally. Ears, nose, mouth and throat: There are moist mucous membranes and no oral lesions. Neck: The neck is supple, there is no tenderness him a no signs of meningitis Cardiovascular: There is a regular rate and rhythm. No murmur, rub or gallop is appreciated. Respiratory: To auscultation bilateral, is breath sounds no crackles noticed Gastrointestinal: Soft, non-distended, non-tender abdomen without masses or organomegaly noted. There is no rebound or guarding present. Bowel sounds are unremarkable. Back: There is no tenderness to palpation in the midline. There is no obvious deformity. Musculoskeletal: Normal ROM, no tenderness, There is no pedal edema. There is no calf tenderness or swelling. No cords were appreciated. Neurological: CN II-XII intact, Cranial nerves III through XII are intact. There are no obvious motor or sensory deficits. Coordination appears grossly intact. Speech is normal. Psychiatric: Cooperative, seems depressed no suicidal or homicidal ideation Limitations: no limitations Course Vital Signs 09/25/17 09/25/17 09/25/17 12:38 16:27 17:20 Temperature 98.3 F Pulse Rate 79 97 Pulse Rate [ 69 Sitting] Pulse Rate [ 72 Standing] Pulse Rate [ 63 Supine] Respiratory 18 18 18 Rate Blood Pressure 161/92 110/64 Blood Pressure 180/100 [Sitting] Blood Pressure 174/90 [Standing] Blood Pressure 174/93 [Supine] O2 Sat by Pulse 98 100 Oximetry 09/25/17 09/25/17 18:35 18:44 Temperature 98.7 F Pulse Rate 65 Pulse Rate [ 60 Sitting] Pulse Rate [ Standing] Pulse Rate [ Supine] Respiratory 18 17 Rate Blood Pressure 129/67 Blood Pressure 150/85 [Sitting] Blood Pressure [Standing] Blood Pressure [Supine] O2 Sat by Pulse 99 Oximetry EKG is sinus bradycardia ventricular rate is 56 [place] interval is 140 QRS duration is 88 QT/QTc is 438/422 review of this EKG does not reveal any ST elevation or ST depression Labs and imaging were a word reviewed, CBC, INR, troponin, comprehensive metabolic panel, EKG, head CT and chest x-ray are unremarkable urinalysis is pending though his the orthostatic blood pressure - Reevaluation(s) Reevaluation #1: [facility] is requesting admission I did review and now discussed all the labs and imaging findings with the patient excepting urinalysis is still pending and considering his chin generalized weakness and unable to ambulate and did page Dr. Faye for possible admission, Dr. Faye agreed to reassess him in the ER 09/25/17 17:15 09/25/17 17:46 Patient is being reassessed by Dr. faye right now him I would endorse patient to Dr. Edilson Rich for further follow-up Medical Decision Making - Lab Data Result diagrams: 09/26/17 05:54 09/27/17 06:03 Lab Results 09/25/17 09/25/17 09/25/17 Range/Units 14:32 14:32 14:32 WBC 6.7 (3.8-10.6) k/uL RBC 4.55 (4.30-5.90) m/uL Hgb 14.4 (13.0-17.5) gm/dL Hct 42.1 (39.0-53.0) % MCV 92.6 (80.0-100.0) fL MCH 31.7 (25.0-35.0) pg MCHC 34.3 (31.0-37.0) g/dL RDW 14.3 (11.5-15.5) % Plt Count 177 (150-450) k/uL Neutrophils % 81 % Lymphocytes % 14 % Monocytes % 4 % Eosinophils % 1 % Basophils % 0 % Neutrophils # 5.4 (1.3-7.7) k/uL Lymphocytes # 1.0 (1.0-4.8) k/uL Monocytes # 0.2 (0-1.0) k/uL Eosinophils # 0.0 (0-0.7) k/uL Basophils # 0.0 (0-0.2) k/uL PT (9.0-12.0) sec INR (<1.2) APTT (22.0-30.0) sec Sodium 140 (137-145) mmol/L Potassium 3.8 (3.5-5.1) mmol/L Chloride 104 (98-107) mmol/L Carbon Dioxide 25 (22-30) mmol/L Anion Gap 11 mmol/L BUN 13 (9-20) mg/dL Creatinine 1.00 (0.66-1.25) mg/dL Est GFR (CKD-EPI)AfAm >90 (>60 ml/min/1.73 sqM) Est GFR (CKD-EPI)NonAf 82 (>60 ml/min/1.73 sqM) Glucose 107 H (74-99) mg/dL Plasma Lactic Acid Adolfo (0.7-2.0) mmol/L Calcium 9.7 (8.4-10.2) mg/dL Magnesium (1.6-2.3) mg/dL Total Bilirubin 0.5 (0.2-1.3) mg/dL AST 18 (17-59) U/L ALT 24 (21-72) U/L Alkaline Phosphatase 55 (38-126) U/L Total Creatine Kinase 112 (55-170) U/L CK-MB (CK-2) 1.7 (0.0-2.4) ng/mL CK-MB (CK-2) Rel Index 1.5 Troponin I <0.012 (0.000-0.034) ng/mL Total Protein 7.2 (6.3-8.2) g/dL Albumin 4.7 (3.5-5.0) g/dL TSH 1.370 (0.465-4.680) mIU/L Urine Color Urine Appearance (Clear) Urine pH (5.0-8.0) Ur Specific [place] (1.001-1.035) Urine Protein (Negative) Urine Glucose (UA) (Negative) Urine Ketones (Negative) Urine Blood (Negative) Urine Nitrite (Negative) Urine Bilirubin (Negative) Urine Urobilinogen (<2.0) mg/dL Ur Leukocyte Esterase (Negative) 09/25/17 09/25/17 09/25/17 Range/Units 14:32 14:32 14:32 WBC (3.8-10.6) k/uL RBC (4.30-5.90) m/uL Hgb (13.0-17.5) gm/dL Hct (39.0-53.0) % MCV (80.0-100.0) fL MCH (25.0-35.0) pg MCHC (31.0-37.0) g/dL RDW (11.5-15.5) % Plt Count (150-450) k/uL Neutrophils % % Lymphocytes % % Monocytes % % Eosinophils % % Basophils % % Neutrophils # (1.3-7.7) k/uL Lymphocytes # (1.0-4.8) k/uL Monocytes # (0-1.0) k/uL Eosinophils # (0-0.7) k/uL Basophils # (0-0.2) k/uL PT 11.2 (9.0-12.0) sec INR 1.2 H (<1.2) APTT 21.5 L (22.0-30.0) sec Sodium (137-145) mmol/L Potassium (3.5-5.1) mmol/L Chloride (98-107) mmol/L Carbon Dioxide (22-30) mmol/L Anion Gap mmol/L BUN (9-20) mg/dL Creatinine (0.66-1.25) mg/dL Est GFR (CKD-EPI)AfAm (>60 ml/min/1.73 sqM) Est GFR (CKD-EPI)NonAf (>60 ml/min/1.73 sqM) Glucose (74-99) mg/dL Plasma Lactic Acid Adolfo 0.8 (0.7-2.0) mmol/L Calcium (8.4-10.2) mg/dL Magnesium 2.1 (1.6-2.3) mg/dL Total Bilirubin (0.2-1.3) mg/dL AST (17-59) U/L ALT (21-72) U/L Alkaline Phosphatase (38-126) U/L Total Creatine Kinase (55-170) U/L CK-MB (CK-2) (0.0-2.4) ng/mL CK-MB (CK-2) Rel Index Troponin I (0.000-0.034) ng/mL Total Protein (6.3-8.2) g/dL Albumin (3.5-5.0) g/dL TSH (0.465-4.680) mIU/L Urine Color Urine Appearance (Clear) Urine pH (5.0-8.0) Ur Specific [place] (1.001-1.035) Urine Protein (Negative) Urine Glucose (UA) (Negative) Urine Ketones (Negative) Urine Blood (Negative) Urine Nitrite (Negative) Urine Bilirubin (Negative) Urine Urobilinogen (<2.0) mg/dL Ur Leukocyte Esterase (Negative) 09/25/17 Range/Units 17:12 WBC (3.8-10.6) k/uL RBC (4.30-5.90) m/uL Hgb (13.0-17.5) gm/dL Hct (39.0-53.0) % MCV (80.0-100.0) fL MCH (25.0-35.0) pg MCHC (31.0-37.0) g/dL RDW (11.5-15.5) % Plt Count (150-450) k/uL Neutrophils % % Lymphocytes % % Monocytes % % Eosinophils % % Basophils % % Neutrophils # (1.3-7.7) k/uL Lymphocytes # (1.0-4.8) k/uL Monocytes # (0-1.0) k/uL Eosinophils # (0-0.7) k/uL Basophils # (0-0.2) k/uL PT (9.0-12.0) sec INR (<1.2) APTT (22.0-30.0) sec Sodium (137-145) mmol/L Potassium (3.5-5.1) mmol/L Chloride (98-107) mmol/L Carbon Dioxide (22-30) mmol/L Anion Gap mmol/L BUN (9-20) mg/dL Creatinine (0.66-1.25) mg/dL Est GFR (CKD-EPI)AfAm (>60 ml/min/1.73 sqM) Est GFR (CKD-EPI)NonAf (>60 ml/min/1.73 sqM) Glucose (74-99) mg/dL Plasma Lactic Acid Adolfo (0.7-2.0) mmol/L Calcium (8.4-10.2) mg/dL Magnesium (1.6-2.3) mg/dL Total Bilirubin (0.2-1.3) mg/dL AST (17-59) U/L ALT (21-72) U/L Alkaline Phosphatase (38-126) U/L Total Creatine Kinase (55-170) U/L CK-MB (CK-2) (0.0-2.4) ng/mL CK-MB (CK-2) Rel Index Troponin I (0.000-0.034) ng/mL Total Protein (6.3-8.2) g/dL Albumin (3.5-5.0) g/dL TSH (0.465-4.680) mIU/L Urine Color Yellow Urine Appearance Clear (Clear) Urine pH 6.5 (5.0-8.0) Ur Specific [place] 1.008 (1.001-1.035) Urine Protein Negative (Negative) Urine Glucose (UA) Negative (Negative) Urine Ketones 1+ H (Negative) Urine Blood Negative (Negative) Urine Nitrite Negative (Negative) Urine Bilirubin Negative (Negative) Urine Urobilinogen <2.0 (<2.0) mg/dL Ur Leukocyte Esterase Negative (Negative) Disposition Clinical Impression: Generalized weakness, Unable to ambulate, Unsteady gait Disposition: ADMITTED IP TO THIS [facility] Condition: Good
[2017-09-25 17:20] LABS: Appearance,Urine Clear (Clear); Bilirubin,Urine Negative (Negative); Blood,Urine Negative (Negative); Color,Urine Yellow; Glucose,Urine (UA) Negative (Negative); Ketones,Urine 1+ (Negative); Leukocyte Esterase,Urine Negative (Negative); Nitrite,Urine Negative (Negative); PH, Urine 6.5 (5.0-8.0); Protein,Urine Negative (Negative); Specific Gravity,Urine 1.008 (1.001-1.035); Urobilinogen,Urine <2.0 mg/dL (<2.0)
[2017-09-25] MEDS ORDERED: ASPIRIN 325 MG TAB PO STA (18:24)
[2017-09-25] MEDS ORDERED: hydrALAZINE HCL 20 MG/ML 1 ML VIAL IVP STA (18:27)
--- NOTE | 2017-09-25 18:30 | P.HPIM ---
History of Present Illness H&P Date: 09/25/17 Chief Complaint: Generalized weakness blurry vision and headache The patient is a 57-year-old male with a past medical history of hypertension and dyslipidemia, depression and anxiety who presents to the ER via private vehicle with reports of generalized weakness. The patient reports his symptoms began approximately 2 days ago, the patient has as also reported some intermittent confusion, with left sided blurry vision, frontal headache and sensations of room spinning he denies slurred speech, focal weakness or facial droop. The patient reports that his gait seems often is a bit unable to support his weight with his legs, he also reports a non-head trauma related fall. He denies any symptoms of chest pain shortness of breath palpitations. Denies any history of alcoholism, and reports that he's a former smoker. In the ER he had a conference of workup including a CT of the head, that was negative for any acute intracranial pathology, EKG showed sinus bradycardia with a rate of 56. He was recommended for admission to rule out CVA Review of Systems All other 12 point review of systems negative except for HPI Past Medical History Past Medical History: Eye Disorder, GI Bleed Additional Past Medical History / Comment(s): chronic back pain; Perforated bowel History of Any Multi-Drug Resistant Organisms: None Reported Past Surgical History: Bowel Resection, Joint Replacement, Orthopedic Surgery Additional Past Surgical History / Comment(s): left hip, right hip compound fracture Past Anesthesia/Blood Transfusion Reactions: No Reported Reaction Past Psychological History: Anxiety, Bipolar, Depression Smoking Status: Current every day smoker Past Alcohol Use History: None Reported Past Drug Use History: None Reported - Past Family History Mother Family Medical History: No Reported History Medications and Allergies Home Medications Medication Instructions Recorded Confirmed Type Pantoprazole [Protonix] 40 mg PO DAILY #30 tablet. 04/09/16 09/25/17 Rx Gabapentin 600 mg PO BID 05/23/16 09/25/17 History Ibuprofen [Motrin] 800 mg PO TID #90 tab 04/24/17 09/25/17 Rx ARIPiprazole [Abilify] 15 mg PO DAILY 09/25/17 09/25/17 History Metoprolol Succinate [Toprol XL] 25 mg PO HS 09/25/17 09/25/17 History QUEtiapine FUMARATE [SEROquel] 300 mg PO HS 09/25/17 09/25/17 History busPIRone HCl [Buspar] 10 mg PO HS 09/25/17 09/25/17 History diphenhydrAMINE [Benadryl] 25 mg PO HS 09/25/17 09/25/17 History lamoTRIgine [LaMICtal] 200 mg PO BID 09/25/17 09/25/17 History Allergies Allergy/AdvReac Type Severity Reaction Status Date / Time No Known Allergies Allergy Verified 09/25/17 12:55 Physical Exam Vitals: Vital Signs Temp Pulse Pulse Pulse Pulse Resp BP 09/25/17 17:20 69 72 63 18 09/25/17 16:27 97 18 110/64 09/25/17 12:38 98.3 F 79 18 161/92 BP BP BP Pulse Ox 09/25/17 17:20 180/100 174/90 174/93 09/25/17 16:27 100 09/25/17 12:38 98 Intake and Output 09/25/17 09/25/17 09/25/17 06:59 14:59 22:59 Other: Weight 72.575 kg Constitutional: No acute distress, conversant, pleasant Eyes: Anicteric sclerae, moist conjunctiva, no lid-lag, PERRLA ENMT: NC/AT,Oropharynx clear, no erythema, exudates Neck:Supple, FROM, no masses, or JVD, No carotid bruits; No thyromegaly Lungs: Clear to auscultation, Clear to percussion, Normal respiratory effort, no accessory muscle use Cardiovascular: Heart regular in rate and rhythm, No murmurs, gallops, or rubs no peripheral edema Abdominal: Soft Nontender, nom distended, no guarding, no rebound or rigidity, Normoactive bowel sounds No hepatomegaly, No splenomegaly, No palpable mass No abdominal wall hernia noted Skin: Normal temperature, tone, texture, turgor, No induration No subcutaneous nodules, No rash, lesions, No ulcers Extremities:No digital cyanosis No clubbing, Pedal pulses intact and symmetrical Radial pulses intact and symmetrical Normal gait and station, No calf tenderness Psychiatric: Alert and oriented to person, place and time, Appropriate affect Intact judgement Neuro: Muscles Strength 5/5 in all 4 extremities, Sensation to light touch grossly present throughout, Cranial nerves II-XII grossly intact. No focal sensory deficits Results CBC & Chem 7: 09/25/17 14:32 09/25/17 14:32 Labs: Abnormal Lab Results - Last 24 Hours (Table) 09/25/17 09/25/17 09/25/17 Range/Units 14:32 14:32 17:12 INR 1.2 H (<1.2) APTT 21.5 L (22.0-30.0) sec Glucose 107 H (74-99) mg/dL Urine Ketones 1+ H (Negative) Assessment and Plan (1) Hypertensive emergency Current Visit: Yes Status: Acute Code(s): I16.1 - HYPERTENSIVE EMERGENCY SNOMED Code(s): 179466816143229 (2) Generalized weakness Current Visit: Yes Status: Acute Code(s): R53.1 - WEAKNESS SNOMED Code(s) : 46805160 (3) Unable to ambulate Current Visit: Yes Status: Acute Code(s): R26.2 - DIFFICULTY IN WALKING, NOT ELSEWHERE CLASSIFIED SNOMED Code(s): 166708292 (4) Vertigo Current Visit: Yes Status: Acute Code(s): R42 - DIZZINESS AND GIDDINESS SNOMED Code(s): 744294958 (5) Blurry vision, left eye Current Visit: Yes Status: Acute Code(s): H53.8 - OTHER VISUAL DISTURBANCES SNOMED Code(s): 754663873 Plan: The patient is placed on observation, anticipated less than 2 midnight stay after presenting with generalized weakness, confusion, vertigo, left eye blurry vision. There is concern For CVA, as a patient does have risk factors such as hypertension, blood pressure is currently elevated we'll resume his home hypertensive regimen and give him a dose of hydralazine now, start him on aspirin, CT of the head was negative for any acute intracranial pathology, will continue workup with echocardiogram, MRI of the head and carotid Dopplers. We' ll also consult neurology for further recommendations, with PT OT and consultation The patient is placed on DVT prophylaxis with Lovenox and SCDs. We 'll continue to follow his clinical course
--- NOTE | 2017-09-25 19:17 | US ---
EXAMINATION TYPE: US carotid duplex BILAT DATE OF EXAM: 09/25/2017 COMPARISON: NONE CLINICAL HISTORY: Stenosis. Weakness trouble walking. EXAM MEASUREMENTS: RIGHT: Peak Systolic Velocity (PSV) cm/sec ----- Right CCA: 68.2 ----- Right ICA: 103.1 ----- Right ECA: 84.2 ICA/CCA ratio: 1.5 RIGHT: End Diastole cm/sec ----- Right CCA: 23.1 ----- Right ICA: 27.5 ----- Right ECA: 12.9 LEFT: Peak Systolic Velocity (PSV) cm/sec ----- Left CCA: 100.8 ----- Left ICA: 82.7 ----- Left ECA: 40.0 ICA/CCA ratio: 0.8 LEFT: End Diastole cm/sec ----- Left CCA: 25.8 ----- Left ICA: 20.6 ----- Left ECA: 13.0 VERTEBRALS (direction of flow): Right Vertebral: Antegrade Left Vertebral: Antegrade Rhythm: Normal Vessels dive deep. No significant stenosis seen IMPRESSION: There is antegrade flow in the vertebral arteries. The images and measurements suggest c lose to 0% stenosis in both internal carotid arteries. Criteria for Assigning % of Stenosis / Diameter reduction (Estimation based on the indirect measurements of the internal carotid artery velocities (ICA PSV). 1. Normal (no stenosis)=ICA PSV < 125 cm/s: ratio < 2.0: ICA EDV<40 cm/s. 2. Less than 50% stenosis=ICA PSV < 125 cm/s: ratio < 2.0: ICA EDV<40 cm/s. 3. 50 to 69% stenosis=ICA PSV of 125 to 230 cm/s: ration 2.0 ? 4.0: ICA EDV 40-100 cm/s. 4. Greater than 70% stenosis to near occlusion= ICA PSV > 230 cm/s: ratio > 4.0: ICA EDV > 100 cm/s. 5. Near occlusion= ICA PSV velocities may be low or undetectable: variable ratio and ICA EDV. 6. Total occlusion=unable to detect flow.
--- NOTE | 2017-09-25 20:14 | MR ---
EXAMINATION TYPE: MR brain wo con DATE OF EXAM: 09/25/2017 COMPARISON: NONE HISTORY: Weakness Standard multiplanar, multisequence MRI departmental protocol Multiplanar, multisequence images of the brain were acquired. Diffusion weighted imaging was performe d. FINDINGS: There is cerebral cortical atrophy. There is no mass effect nor midline shift. There is no sign of intracranial hemorrhage. Brainstem appears normal. Corpus callosum appears normal. Sella turc ica appears normal. There is no evidence of cortical infarct. There is some mucosal thickening in the ethmoid and left side sphenoid sinus. IMPRESSION: Sinusitis. Mild atrophy. No acute intracranial abnormality. No evidence of an infarct.
[2017-09-25] MEDS: lamoTRIgine 100 MG TAB PO SCH (21:06)
[2017-09-25] MEDS: METOPROLOL SUCCINATE (ER) 25 MG TAB.ER.24H PO SCH (21:06)
[2017-09-25] MEDS: busPIRone HCl 10 MG TAB PO SCH (21:06)
[2017-09-25] MEDS: QUEtiapine 100 MG TAB PO SCH (21:06)
[2017-09-25] MEDS: GABAPENTIN 300 MG CAP PO SCH (21:06)
[2017-09-25] MEDS: IBUPROFEN 600 MG TAB PO PRN (21:13)
[2017-09-25] MEDS: ALPRAZolam 0.5 MG TAB PO PRN (21:13)
[2017-09-25] MEDS: diphenhydrAMINE 25 MG CAP PO SCH (21:14)
[2017-09-26 06:37] LABS: Basophils % (A) 0 %; Eosinophils # (A) 0.1 k/uL (0-0.7); Eosinophils % (A) 3 %; HCT 38.8 % (39.0-53.0); HGB 12.9 gm/dL (13.0-17.5); Lymphocytes # (A) 1.7 k/uL (1.0-4.8); Lymphocytes % (A) 32 %; MCH 30.2 pg (25.0-35.0); MCHC 33.3 g/dL (31.0-37.0); MCV 90.6 fL (80.0-100.0); Mean Platelet Volume 6.9; Monocytes # (A) 0.4 k/uL (0-1.0); Monocytes % (A) 7 %; Neutrophils % (A) 56 %; Platelet Count 185 k/uL (150-450); RBC 4.28 m/uL (4.30-5.90); RDW 13.7 % (11.5-15.5); WBC 5.3 k/uL (3.8-10.6)
[2017-09-26 06:53] LABS: Albumin 3.9 g/dL (3.5-5.0); Calcium 9.5 mg/dL (8.4-10.2); Potassium 3.5 mmol/L (3.5-5.1); Total Bilirubin 0.3 mg/dL (0.2-1.3); Total Protein 6.1 g/dL (6.3-8.2)
[2017-09-26] MEDS: IBUPROFEN 600 MG TAB PO PRN ×3 (08:51→21:47)
[2017-09-26] MEDS: ALPRAZolam 0.5 MG TAB PO PRN ×2 (08:51→15:52)
[2017-09-26] MEDS: ASPIRIN 325 MG TAB PO SCH (08:51)
[2017-09-26] MEDS: lamoTRIgine 100 MG TAB PO SCH ×2 (08:51→20:22)
[2017-09-26] MEDS: PANTOPRAZOLE 40 MG TABLET PO SCH (08:51)
[2017-09-26] MEDS: GABAPENTIN 300 MG CAP PO SCH ×2 (09:00→20:22)
[2017-09-26] MEDS: SODIUM CHLORIDE 0.9% 1,000 ML IV SCH ×4 (09:00→20:22)
[2017-09-26] MEDS ORDERED: amLODIPine 10 MG TAB PO SCH (09:00)
[2017-09-26] MEDS: ARIPiprazole 15 MG TAB PO SCH (09:00)
[2017-09-26] MEDS: ENOXAPARIN 40 MG/0.4 ML SYRINGE SQ SCH (09:00)
[2017-09-26] MEDS ORDERED: MECLIZINE 25 MG TAB PO PRN (10:24)
--- NOTE | 2017-09-26 10:25 | P.PN ---
Subjective Progress Note Date: 09/26/17 Patient still complain of weakness today, reports that he has not been up or ambulatory yet. No acute events overnight Objective - Vital Signs Vital signs: Vital Signs Temp 98.7 F 09/26/17 08:45 Pulse 56 L 09/26/17 08:45 Resp 16 09/26/17 08:45 BP 114/70 09/26/17 08:45 Pulse Ox 96 09/26/17 07:24 Intake & Output 09/25/17 09/26/17 09/26/17 18:59 06:59 18:59 Intake Total 900 240 Output Total 550 Balance 350 240 Weight 72.575 kg 70.2 kg Intake: Intake, IV Titration 400 Amount Sodium Chloride 0.9% 1, 400 000 ml @ 100 mls/hr IV . Q10H STA Rx#:[id number] Oral 500 240 Output: Urine 550 Other: Voiding Method Urinal Urinal # Voids 1 - Exam Constitutional: No acute distress, conversant, pleasant Eyes: Anicteric sclerae, moist conjunctiva, no lid-lag, PERRLA ENMT: NC/AT,Oropharynx clear, no erythema, exudates Neck:Supple, FROM, no masses, or JVD, No carotid bruits; No thyromegaly Lungs: Clear to auscultation, Clear to percussion, Normal respiratory effort, no accessory muscle use Cardiovascular: Heart regular in rate and rhythm, No murmurs, gallops, or rubs no peripheral edema Abdominal: Soft Nontender, nom distended, no guarding, no rebound or rigidity, Normoactive bowel sounds No hepatomegaly, No splenomegaly, No palpable mass No abdominal wall hernia noted Skin: Normal temperature, tone, texture, turgor, No induration No subcutaneous nodules, No rash, lesions, No ulcers Extremities:No digital cyanosis No clubbing, Pedal pulses intact and symmetrical Radial pulses intact and symmetrical Normal gait and station, No calf tenderness Psychiatric: Alert and oriented to person, place and time, Appropriate affect Intact judgement Neuro: Muscles Strength 5/5 in all 4 extremities, Sensation to light touch grossly present throughout, Cranial nerves II-XII grossly intact. No focal sensory deficits - Labs CBC & Chem 7: 09/26/17 05:54 09/26/17 05:54 Labs: Abnormal Lab Results - Last 24 Hours (Table) 09/25/17 09/25/17 09/25/17 Range/Units 14:32 14:32 17:12 RBC (4.30-5.90) m/uL Hgb (13.0-17.5) gm/dL Hct (39.0-53.0) % INR 1.2 H (<1.2) APTT 21.5 L (22.0-30.0) sec Creatinine (0.66-1.25) mg/dL Glucose 107 H (74-99) mg/dL AST (17-59) U/L Total Protein (6.3-8.2) g/dL Urine Ketones 1+ H (Negative) 09/26/17 09/26/17 Range/Units 05:54 05:54 RBC 4.28 L (4.30-5.90) m/uL Hgb 12.9 L (13.0-17.5) gm/dL Hct 38.8 L (39.0-53.0) % INR (<1.2) APTT (22.0-30.0) sec Creatinine 1.50 H (0.66-1.25) mg/dL Glucose 100 H (74-99) mg/dL AST 15 L (17-59) U/L Total Protein 6.1 L (6.3-8.2) g/dL Urine Ketones (Negative) Microbiology - Last 24 Hours (Table) 09/25/17 17:12 Urine Culture - Preliminary Urine,Voided Assessment and Plan (1) Acute kidney injury Narrative/Plan: * Etiology unknown possibly prerenal due to dehydration * Blood pressure borderline we'll give a bolus and start maintenance fluids * Recheck creatinine tomorrow Current Visit: Yes Status: Acute Code(s): N17.9 - ACUTE KIDNEY FAILURE, UNSPECIFIED SNOMED Code(s): 33473439 (2) Generalized weakness Narrative/Plan: * MRI of the head negative for any acute intracranial pathology * Carotid Dopplers negative for any clinically significant stenosis * Echocardiogram pending * Neurology consult pending Current Visit: Yes Status: Acute Code(s): R53.1 - WEAKNESS SNOMED Code(s) : 94577322 (3) Unable to ambulate Narrative/Plan: * PTOT consulted to see the patient Current Visit: Yes Status: Acute Code(s): R26.2 - DIFFICULTY IN WALKING, NOT ELSEWHERE CLASSIFIED SNOMED Code(s): 649993114 (4) Vertigo Narrative/Plan: * Central vertigo ruled out with negative MRI likely peripheral * We'll start Antivert Current Visit: Yes Status: Acute Code(s): R42 - DIZZINESS AND GIDDINESS SNOMED Code(s): 003015938 (5) Blurry vision, left eye Current Visit: Yes Status: Acute Code(s): H53.8 - OTHER VISUAL DISTURBANCES SNOMED Code(s): 329720834 (6) Hypertensive emergency Narrative/Plan: * Blood pressure much improved we'll continue metoprolol at night and when necessary hydralazine * We'll hold Norvasc Current Visit: Yes Status: Resolved Code(s): I16.1 - HYPERTENSIVE EMERGENCY SNOMED Code(s): 863430632278547 Plan: * Awaiting neurology consultation * Anticipated discharge in 1 day
[2017-09-26 11:37] VITALS: BMI 19.3
--- NOTE | 2017-09-26 12:53 | P.CNNES ---
History of Present Illness Consult date: 09/26/17 Reason for Consult: Patient admitted with weakness and vertigo of acute onset. History of Present Illness: This patient is a 57-year-old right-handed white male who was admitted to [facility] yesterday after sustaining a fall due to generalized weakness. Patient states he was at home and was going down a flight of stairs and became weak and fell. He lives with his sister and apparently she found him and decided to bring him to the emergency room due to the fall. He did not sustain any major injury. He was seen in the ER by Dr. Mendoza. He was sent for a computed tomography scan of the brain yesterday which revealed no acute intracranial process. Patient states that he was having episode of confusion and blurry vision. Following the fall he did complain of a slight frontal headache. He still continued to have generalized weakness and every time he stood up he felt very weak and unable to stand for any length of time. In the emergency room his EKG revealed him to have evidence of sinus bradycardia. There was concern for possibility of stroke and he was admitted for a complete neurological evaluation. Patient denies any previous history of stroke. In the emergency room he did have evidence of mild hypertensive urgency which was treated in the ER. Patient underwent a MRI of the brain leg yesterday evening. This MRI results indicate mild cortical atrophy with no acute intracranial abnormality. No evidence of recent infarction. We reviewed the results of the MRI today with the patient. He does seem to be doing much better today and may benefit from physical therapy evaluation. Clearly no evidence for acute stroke based on his MRI results. Patient also underwent carotid Doppler ultrasound yesterday which revealed no significant carotid artery stenosis. We would recommend that he be placed on aspirin daily for secondary stroke prevention. Patient states one of the medications that he has been taking at home possibly caused him to become suddenly confused and weak. He is to discuss this with his primary care physician. Patient continues to have symptoms of generalized weakness. He is being treated for acute kidney injury as well. Possibly has some prerenal changes secondary to dehydration. Would recommend IV hydration for this. Patient would benefit from physical therapy and occupational therapy consultation and possible rehab placement if he shows no improvement. Once again we reviewed his MRI results with in detail which fails to reveal any evidence of acute stroke. Would encourage increase activity as he tolerates. Neurology is now been consulted for further evaluation and recommendations. Review of Systems Constitutional: Denies chills, Denies fever Eyes: denies blurred vision, denies pain Ears, nose, mouth and throat: Denies headache, Denies sore throat Cardiovascular: Denies chest pain, Denies shortness of breath Respiratory: Denies cough Gastrointestinal: Denies abdominal pain, Denies diarrhea, Denies nausea, Denies vomiting Musculoskeletal: Denies myalgias Integumentary: Denies pruritus, Denies rash Neurological: Reports confusion, Reports gait dysfunction, Reports headaches, Reports memory loss, Reports motor disturbance, Denies numbness, Denies weakness Psychiatric: Denies anxiety, Denies depression Endocrine: Denies fatigue, Denies weight change Past Medical History Past Medical History: Eye Disorder, GI Bleed Additional Past Medical History / Comment(s): chronic back pain; Perforated bowel History of Any Multi-Drug Resistant Organisms: None Reported Past Surgical History: Bowel Resection, Joint Replacement, Orthopedic Surgery Additional Past Surgical History / Comment(s): left hip, right hip compound fracture Past Anesthesia/Blood Transfusion Reactions: No Reported Reaction Past Psychological History: Anxiety, Bipolar, Depression Smoking Status: Current every day smoker Past Alcohol Use History: None Reported Past Drug Use History: None Reported - Past Family History Mother Family Medical History: No Reported History Medications and Allergies Home Medications Medication Instructions Recorded Confirmed Type Pantoprazole [Protonix] 40 mg PO DAILY #30 tablet. 04/09/16 09/25/17 Rx Gabapentin 600 mg PO BID 05/23/16 09/25/17 History Ibuprofen [Motrin] 800 mg PO TID #90 tab 04/24/17 09/25/17 Rx ARIPiprazole [Abilify] 15 mg PO DAILY 09/25/17 09/25/17 History Metoprolol Succinate [Toprol XL] 25 mg PO HS 09/25/17 09/25/17 History QUEtiapine FUMARATE [SEROquel] 300 mg PO HS 09/25/17 09/25/17 History busPIRone HCl [Buspar] 10 mg PO HS 09/25/17 09/25/17 History diphenhydrAMINE [Benadryl] 25 mg PO HS 09/25/17 09/25/17 History lamoTRIgine [LaMICtal] 200 mg PO BID 09/25/17 09/25/17 History Allergies Allergy/AdvReac Type Severity Reaction Status Date / Time No Known Allergies Allergy Verified 09/25/17 12:55 Physical Examination - Vital Signs Vital Signs: Vital Signs Temp Pulse Pulse Pulse Pulse Resp BP 09/26/17 08:45 98.7 F 56 L 56 L 16 09/26/17 07:24 09/26/17 05:18 97.5 F L 47 L 17 09/26/17 04:00 97.5 F L 55 L 72 63 17 09/26/17 01:18 98 F 47 L 17 09/26/17 00:00 98.1 F 60 17 09/25/17 21:18 98.5 F 58 L 17 09/25/17 20:18 98.7 F 60 72 63 17 09/25/17 18:44 98.7 F 60 17 09/25/17 18:35 65 18 129/67 09/25/17 17:20 69 72 63 18 09/25/17 16:27 97 18 110/64 09/25/17 12:38 98.3 F 79 18 161/92 BP BP BP Pulse Ox 09/26/17 08:45 114/70 09/26/17 07:24 96 09/26/17 05:18 90/57 09/26/17 04:00 94/57 109/65 90/57 09/26/17 01:18 140/70 09/26/17 00:00 142/78 09/25/17 21:18 145/82 09/25/17 20:18 150/80 09/25/17 18:44 150/85 09/25/17 18:35 99 09/25/17 17:20 180/100 174/90 174/93 09/25/17 16:27 100 09/25/17 12:38 98 Intake and Output 09/25/17 09/26/17 09/26/17 22:59 06:59 14:59 Intake Total 200 700 240 Output Total 300 250 Balance -100 450 240 Intake: Intake, IV Titration 400 Amount Sodium Chloride 0.9% 1, 400 000 ml @ 100 mls/hr IV . Q10H STA Rx#:[id number] Oral 200 300 240 Output: Urine 300 250 Other: Voiding Method Urinal Urinal Urinal # Voids 1 1 Weight 72.575 kg 70.2 kg - Constitutional General appearance: average body habitus, cooperative - EENT EENT: PERRL, mucous membranes moist - Respiratory Respiratory: lungs clear, normal breath sounds - Cardiovascular Cardiovascular: regular rate, normal S1, normal S2 Extremities: no peripheral edema bilaterally - Gastrointestinal Gastrointestinal: normoactive bowel sounds - Integumentary Integumentary: normal - Neurologic Cranial nerve examination: PERRL, EOMI, VFF, V1/V2/V3 grossly intact, face symmetric, tongue midline, intact gag reflex, intact corneal reflex, normal palatal elevation Speech examination: intact Sensorimotor examination: intact Motor examination - right side: 4/5: biceps, triceps, wrist flexion, wrist extension, cuff matcher, hip flexors, knee extensors, dorsiflexion, toe extension (EHL) , plantarflexion Motor examination - left side: 4/5: biceps, triceps, wrist flexion, wrist extension, cuff matcher, hip flexors, knee extensors, dorsiflexion, toe extension (EHL) , plantarflexion Detailed sensory examination: intact Reflex and gait examination: intact Reflexes: 1+: ankle, bicep, knee, tricep - Musculoskeletal Musculoskeletal: no pain - Psychiatric Psychiatric: mood/affect appropriate, cooperative Results - Laboratory Findings CBC and BMP: 09/26/17 05:54 09/26/17 05:54 Abnormal Lab Findings: Abnormal Labs 09/25/17 09/25/17 09/25/17 14:32 14:32 17:12 RBC Hgb Hct INR 1.2 H APTT 21.5 L Creatinine Glucose 107 H AST Total Protein Urine Ketones 1+ H 09/26/17 09/26/17 05:54 05:54 RBC 4.28 L Hgb 12.9 L Hct 38.8 L INR APTT Creatinine 1.50 H Glucose 100 H AST 15 L Total Protein 6.1 L Urine Ketones Assessment and Plan (1) Metabolic encephalopathy Current Visit: Yes Status: Acute Code(s): G93.41 - METABOLIC ENCEPHALOPATHY SNOMED Code(s): 99022796 (2) Blurry vision, left eye Current Visit: Yes Status: Acute Code(s): H53.8 - OTHER VISUAL DISTURBANCES SNOMED Code(s): 349918906 (3) Generalized weakness Current Visit: Yes Status: Acute Code(s): R53.1 - WEAKNESS SNOMED Code(s) : 16671938 (4) Hypertensive emergency Current Visit: Yes Status: Resolved Code(s): I16.1 - HYPERTENSIVE EMERGENCY SNOMED Code(s): 804924462021003 Plan: This patient is a 57-year-old male who is being evaluated for generalized weakness and recent fall at home. Patient apparently was going down a flight of stairs and suddenly lost muscle tone and strength in his legs. He had fallen down the stairs. He was brought into the emergency room at [facility] yesterday for further evaluation. He underwent a computed tomography scan of the brain which is negative for any acute changes. Was seen in the ER by Dr. Mendoza. He continued to complain of weakness. He was admitted to hospital for further evaluation. Patient was also able to complete MRI of the brain yesterday to rule out possibility of small lacunar stroke. MRI results indicate no evidence of acute stroke or infarction. Patient is to be evaluated by physical therapy and occupational therapy. His neurological exam reveals good muscle strength in both upper and lower extremities. Would increase activity as he tolerates and will await further recommendations from physical therapy. If he is still not showing improvement may consider outpatient or inpatient rehab placement due to generalized weakness. So overall prognosis at this time remains guarded. We will continue close neurological follow-up for the patient during this admission. Time with Patient: Greater than 30
--- NOTE | 2017-09-26 14:01 | ECHOF ---
Referral Reason:Rule out CVA MEASUREMENTS -------- HEIGHT: 185.4 cm WEIGHT: 69.9 kg BP: 140/70 IVSd: 0.9 cm (0.6 - 1.1) LVIDd: 3.8 cm (3.9 - 5.3) LVPWd: 1.4 cm (0.6 - 1.1) IVSs: 1.7 cm LVIDs: 2.0 cm LVPWs: 1.9 cm LAESV Index (A-L): 17.02 ml/m Ao Diam: 3.5 cm (2.0 - 3.7) AV Cusp: 1.4 cm (1.5 - 2.6) LA Diam: 3.1 cm (2.7 - 3.8) MV EXCURSION: 13.883 mm (> 18.000) MV EF SLOPE: 138 mm/s (70 - 150) EPSS: 1.9 cm MV E Neeraj: 0.89 m/s MV DecT: 151 ms MV A Neeraj: 0.51 m/s MV E/A Ratio: 1.74 AR PHT: 387 ms RAP: 5.00 mmHg RVSP: 19.13 mmHg FINDINGS -------- Sinus rhythm. This was a technically good study. The left ventricular size is normal. There is borderline concentric left ventricular hypertrophy. Overall left ventricular systolic function is normal with, an EF between 55 - 60 %. The right ventricle is normal in size and function. The left atrium is normal in size. The right atrium is normal in size. Trace amount of aortic regurgitation. The mitral valve leaflets are mildly thickened. There is trace mitral regurgitation. Trace tricuspid regurgitation present. The right ventricular systolic pressure, as measured by Dopp ler, is 19.13mmHg. Pulmonic valve appears structurally normal. The aortic root size is normal. The pericardium is normal. CONCLUSIONS -------- 1. Sinus rhythm. 2. This was a technically good study. 3. The left ventricular size is normal. 4. There is borderline concentric left ventricular hypertrophy. 5. Overall left ventricular systolic function is normal with, an EF between 55 - 60 %. 6. The right ventricle is normal in size and function. 7. The left atrium is normal in size. 8. The right atrium is normal in size. 9. Trace amount of aortic regurgitation. 10. The mitral valve leaflets are mildly thickened. 11. There is trace mitral regurgitation. 12. Trace tricuspid regurgitation present. 13. The right ventricular systolic pressure, as measured by Doppler, is 19.13mmHg. 14. Pulmonic valve appears structurally normal. 15. The aortic root size is normal. 16. The pericardium is normal. DATA TECHNICIAN: Rebecca Flores RDCS
[2017-09-26] MEDS: busPIRone HCl 10 MG TAB PO SCH (20:22)
[2017-09-26] MEDS: METOPROLOL SUCCINATE (ER) 25 MG TAB.ER.24H PO SCH (20:22)
[2017-09-26] MEDS: diphenhydrAMINE 25 MG CAP PO SCH (20:22)
[2017-09-26] MEDS: QUEtiapine 100 MG TAB PO SCH (20:23)
[2017-09-27] MEDS: SODIUM CHLORIDE 0.9% 1,000 ML IV SCH (06:10)
[2017-09-27 07:08] LABS: Calcium 8.5 mg/dL (8.4-10.2); Potassium 3.9 mmol/L (3.5-5.1)
[2017-09-27 08:21] VITALS: BP 115/60; PULSE 64; RESP 17; TEMP 98
[2017-09-27] MEDS: ENOXAPARIN 40 MG/0.4 ML SYRINGE SQ SCH (08:21)
[2017-09-27] MEDS: ARIPiprazole 15 MG TAB PO SCH (08:22)
[2017-09-27] MEDS: ASPIRIN 325 MG TAB PO SCH (08:22)
[2017-09-27] MEDS: PANTOPRAZOLE 40 MG TABLET PO SCH (08:22)
[2017-09-27] MEDS: lamoTRIgine 100 MG TAB PO SCH (08:22)
[2017-09-27] MEDS: GABAPENTIN 300 MG CAP PO SCH (08:22)
[2017-09-27] MEDS: ALPRAZolam 0.5 MG TAB PO PRN (08:26)
--- NOTE | 2017-09-27 10:17 | P.DS ---
Providers Date of admission: 09/25/17 18:18 Expected date of discharge: 09/27/17 Attending physician: Anatoly Faye MD Consults: 09/25/17 18:24 Consult Physician Routine Consulting Provider: Roosevelt Alvarez Consult Reason/Comments: Confusion generalized weakness, impaired gait Do you want consulting provider notified?: Yes Primary care physician: Jennifer Melgar MD - Discharge Diagnosis(es) (1) Acute kidney injury Current Visit: Yes Status: Resolved (2) Generalized weakness Current Visit: Yes Status: Acute (3) Unable to ambulate Current Visit: Yes Status: Acute (4) Vertigo Current Visit: Yes Status: Acute (5) Blurry vision, left eye Current Visit: Yes Status: Acute (6) Hypertensive emergency Current Visit: Yes Status: Resolved Hospital Course: the patient is a 57-year-old male that was admitted for generalized weakness after recent fall at home and inability to ambulate. After presenting with hypertensive emergency there was some concern the patient might have a CVA , he was started on antiplatelet therapy and initiated on an antihypertensive regimen to bring his blood pressure down. CT of the head was negative for any acute intracranial pathology, carotid Dopplers were negative for any clinically significant stenosis and echocardiogram showed a EF of 55-60%. The patient was noted to have vertigo and was started on meclizine, given his presenting symptoms and complaints of blurry vision and vertigo MRI was ordered to rule out an acute CVA, this was only consistent with mild atrophy and sinusitis with no acute intracranial abnormality or evidence of infarct. Patient was noted to have mild acute kidney injury attributed to dehydration, he was started on IV fluids and his acute kidney injury resolved with creatinine returning to baseline. Patient was seen by physical and occupational therapy and was able to ambulate independently, Without any significant concerns for his gait. Patient was seen by neurology Dr. Alvarez who thought the patient had metabolic encephalopathy now resolved possibly secondary to dehydration. The patient was subsequently discharged home in stable condition with a new prescription for Antivert and instructed to follow-up with his primary care physician in 2-3 days. This discharge process took approximately 35 minutes Patient Condition at Discharge: Good Plan - Discharge Summary Discharge Rx Participant: No New Discharge Prescriptions: New Meclizine [Antivert] 25 mg PO TID PRN #30 tab PRN Reason: Vertigo Continue Pantoprazole [Protonix] 40 mg PO DAILY #30 tablet. Gabapentin 600 mg PO BID Ibuprofen [Motrin] 800 mg PO TID #90 tab lamoTRIgine [LaMICtal] 200 mg PO BID diphenhydrAMINE [Benadryl] 25 mg PO HS busPIRone HCl [Buspar] 10 mg PO HS QUEtiapine FUMARATE [SEROquel] 300 mg PO HS Metoprolol Succinate [Toprol XL] 25 mg PO HS ARIPiprazole [Abilify] 15 mg PO DAILY Discharge Medication List Pantoprazole [Protonix] 40 mg PO DAILY #30 tablet. 04/09/16 [Rx] Gabapentin 600 mg PO BID 05/23/16 [History] Ibuprofen [Motrin] 800 mg PO TID #90 tab 04/24/17 [Rx] ARIPiprazole [Abilify] 15 mg PO DAILY 09/25/17 [History] Metoprolol Succinate [Toprol XL] 25 mg PO HS 09/25/17 [History] QUEtiapine FUMARATE [SEROquel] 300 mg PO HS 09/25/17 [History] busPIRone HCl [Buspar] 10 mg PO HS 09/25/17 [History] diphenhydrAMINE [Benadryl] 25 mg PO HS 09/25/17 [History] lamoTRIgine [LaMICtal] 200 mg PO BID 09/25/17 [History] Meclizine [Antivert] 25 mg PO TID PRN #30 tab 09/27/17 [Rx] Follow up Appointment(s)/Referral(s): Jennifer Melgar MD [Primary Care Provider] - 1-2 days (Office is open Friday- Please call to make appointment) Patient Instructions/Handouts: Syncope (DC)
== END 2017-09-27 11:20 | disposition home or self-care (01) ==
LOC: EC 12:34 → 6SEL 18:18
PROVIDERS: ADMIT Family Medicine; ATTEND Family Medicine
DX: N17.9 Acute kidney failure, unspecified (principal); I16.1 Hypertensive emergency; R42 Dizziness and giddiness; I10 Essential (primary) hypertension; E86.0 Dehydration; G93.41 Metabolic encephalopathy; R26.2 Difficulty in walking, not elsewhere classified; E78.5 Hyperlipidemia, unspecified; F41.9 Anxiety disorder, unspecified; F31.9 Bipolar disorder, unspecified; M54.9 Dorsalgia, unspecified; G89.29 Other chronic pain; Z87.19 Personal history of other diseases of the digestive system; F17.200 Nicotine dependence, unspecified, uncomplicated; Z79.899 Other long term (current) drug therapy; Z79.1 Long term (current) use of non-steroidal anti-inflammatories (NSAID); Y92.009 Unspecified place in unspecified non-institutional (private) residence as the place of occurrence of the external cause; W10.9XXA Fall (on) (from) unspecified stairs and steps, initial encounter
CPT/HCPCS: 99285 ×2; 96361 ×10; 96374 ×2; 96372 ×2; 36415; 94760; 93005; 93306; 97162; 80061; 80053 ×2; 80048; 82550; 82553; 83605; 83735; 84443; 84484; 85025 ×2; 85610; 85730; 81003; 87086; 71046; 93880; 70450; 70551; G0378 ×3; J2405; J1650 ×2

== ENCOUNTER → 2018-09-15 | Outpatient (CLI) | payer MEDICARE ==
--- NOTE | 2018-09-15 14:34 | MR ---
EXAMINATION TYPE: MR lumbar spine wo con DATE OF EXAM: 09/15/2018 COMPARISON: MRI lumbar spine January 26, 2015. CT abdomen and pelvis July 14, 2016. HISTORY: Degeneration of lumbar disc and leg radiculopathy per order. Chronic low back pain into both lower extremities per patient. TECHNIQUE: Multiplanar, multisequence imaging of the lumbar spine is performed without IV contrast. FINDINGS: There is persistent dextroconvex scoliosis centered in the mid lumbar spine. Sagittal image s of the lumbar spine show vertebral body heights to remain satisfactory. Straightening of lumbar spi ne is again seen. Multilevel disc desiccation is redemonstrated. There is persistent moderate to adva nced disc space narrowing with vacuum disc phenomenon and heterogeneous Modic type II endplate change s L3-L4 level. There is persistent mild disc space narrowing vacuum disc phenomenon L4-L5 level. Ther e is persistent moderate to advanced disc space narrowing with heterogeneous Modic type I endplate ch anges L5-S1 level. The conus medullaris remains normal in position and signal ending mid L1 level. Mo derate multilevel anterior spurring is redemonstrated. Axial images at the T12-L1 level remain within normal limits. Axial images at the L1-L2 level redemonstrate mild facet degenerative changes bilaterally with mild t o moderate broad disc bulge that has central disc protrusion component effacing anterior thecal sac o n axial image 23 new from prior study, bilateral neural foramina are patent. Axial images at L2-L3 level show mild/moderate broad disc bulge and mild facet degenerative changes b ilaterally with some effacement the posterior lateral thecal sac. There is mild right-sided anterior inferior neural foraminal narrowing. No significant change from prior. Axial images at the L3-L4 level show moderate to advanced broad disc bulge with mild facet degenerati ve changes effacing posterior lateral thecal sac. There is moderate left sided inferior neural forami nal narrowing. No significant change from prior. Axial images at the L4-L5 level show moderate facet degenerative changes and ligamentum flavum hypert rophy effacing posterior lateral thecal sac. There is moderate broad disc bulge effacing anterior the jess sac and causing moderate left-sided inferior neural foraminal narrowing. No significant change fr om prior. Axial images at the L5-S1 level show moderate to advanced right greater than left facet degenerative changes. There is mild broad disc bulge with right lateral disc protrusion component. There is persis tent fairly advanced right-sided neural foraminal narrowing with encroachment on right L5 nerve felt present axial image 3 and sagittal image 12. Left-sided neural foramina shows mild anterior inferior neural foraminal narrowing similar to prior. Spinal canal is fairly well preserved. No suspicious incidental retroperitoneal finding is seen. IMPRESSION: Loss of normal lumbar lordosis with multilevel degenerative changes redemonstrated. Findi ngs most prominent L5-S1 level again seen as detailed above. Some progression in degenerative changes L1-L2 level noted from prior MRI.
== END | disposition home or self-care (01) ==
LOC: RADMRIMAIN 13:33
PROVIDERS: ATTEND Family Medicine
DX: M48.07 Spinal stenosis, lumbosacral region (principal); M51.27 Other intervertebral disc displacement, lumbosacral region; M47.817 Spondylosis without myelopathy or radiculopathy, lumbosacral region; M47.816 Spondylosis without myelopathy or radiculopathy, lumbar region
CPT/HCPCS: 72148

== ENCOUNTER → 2018-10-27 | Outpatient (CLI) | payer MEDICARE ==
[2018-10-27 14:07] VITALS: BP 137/80; PULSE 46; RESP 16; TEMP 98
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
== END | disposition home or self-care (01) ==
LOC: PNWHC3 12:43
PROVIDERS: ATTEND Anesthesiology
DX: G89.29 Other chronic pain (principal); M47.816 Spondylosis without myelopathy or radiculopathy, lumbar region; I10 Essential (primary) hypertension; F17.200 Nicotine dependence, unspecified, uncomplicated; Z87.81 Personal history of (healed) traumatic fracture; Z98.890 Other specified postprocedural states; Z79.899 Other long term (current) drug therapy
CPT/HCPCS: 99211

== ENCOUNTER 2018-11-05 09:40 | Day surgery (SDC) | payer MEDICARE ==
[2018-11-04 12:30] VITALS: BMI 23.7
[~2018-11-05 09:40] MED LIST: LACTATED RINGERS 1,000 ML IV SCH
[2018-11-05 10:14] VITALS: RESP 16; TEMP 98.1
--- NOTE | 2018-11-05 11:00 | P.PCN ---
Date of Procedure: 11/05/18 Surgeon: Daniella Murillo Pathology: none sent Condition: stable Disposition: PACU Description of Procedure: PREOPERATIVE DIAGNOSIS : 1- Lumbar spondylosis with Facet Arthropathy without myelopathy . 2- Lumber degenerative disc disease POSTOPERATIVE DIAGNOSIS: 1- Lumbar spondylosis with Facet Arthropathy without myelopathy . 2- Lumber degenerative disc disease PROCEDURE: Diagnostic bilateral L3 -4 , L4 -5 , and L5-S1 medial branch block under fluoroscopy ANESTHESIA: Local with 1% lidocaine; IV moderate conscious sedation with Versed 2 mg . EBL: Negligible COMPLICATION: None. PROCEDURE INDICATION: Chronic low back pain secondary to Facet arthropathy unresponsive to conservative treatment. PROCEDURE DESCRIPTION: the patient was seen and identified in the preop holding area , risks and benefits and possible complications of the procedure and alternatives were discussed with the patient, and the patient agreed to proceed with the procedure and signed the consent. IV was started and vital signs monitored during the procedure and fluoroscopy was used to maximize the benefit and accuracy of the needle placement, sedation was given to decrease patient anxiety, patient was taken to the procedure room and placed in prone position vital signs monitored. The patient was brought into the procedure room and placed in prone position. Skin was prepped with Chloraprep and draped in a sterile manner. Lidocaine 1% was used to numb the skin up at the target points that were chosen as follows: at the L5-S1 level which corresponds to the dorsal ramus of L5 the target points were at the superior medial aspect of the sacral ala on each side of the spine on the AP view of fluoroscopy, and for the L3 and L4 medial branches the target points were the connection between the transverse process and the superior to go process of L4 and L5 respectively on the oblique views of fluoroscopy. I used 22-gauge 3-1/2 inch Quincke spinal needles for this procedure and after contacting bone at the target points mentioned above I injected 1 mL of a mixture of Kenalog 40 mg +5 MLS of ropivacaine 0.5% PF . Patient tolerated procedure well. At the end of the procedure the needles removed and a bandage applied after the skin was cleaned the cleaning solution. patient was then taken to the recovery room in stable condition and monitored in the recovery room for 20-30 minutes and discharged home in stable condition after discharge criteria [place]
[2018-11-05] MEDS ORDERED: LACTATED RINGERS 1,000 ML IV ONE (11:06)
[2018-11-05 11:28] VITALS: BP 147/90; PULSE 60
--- NOTE | 2018-11-05 14:47 | FL ---
Fluoroscopy HISTORY: Pain 9 seconds fluoroscopy time supplied to the referring clinician. 2 intraoperative C-arm images docume nt the procedure. See dictated report from anesthesia.
== END 2018-11-05 11:53 | disposition home or self-care (01) ==
LOC: ORPAIN 09:40
PROVIDERS: ATTEND Anesthesiology
DX: M47.816 Spondylosis without myelopathy or radiculopathy, lumbar region (principal); M51.36 Other intervertebral disc degeneration, lumbar region; G89.29 Other chronic pain; I10 Essential (primary) hypertension; F17.200 Nicotine dependence, unspecified, uncomplicated; F41.9 Anxiety disorder, unspecified; F31.9 Bipolar disorder, unspecified; F32.9 Major depressive disorder, single episode, unspecified; Z90.49 Acquired absence of other specified parts of digestive tract; Z79.1 Long term (current) use of non-steroidal anti-inflammatories (NSAID); Z79.899 Other long term (current) drug therapy
CPT/HCPCS: 64493; 64494; 64495; J2250; J3301; 99152

== ENCOUNTER → 2018-11-25 | Outpatient (CLI) | payer MEDICARE ==
--- NOTE | 2018-11-26 07:40 | XR ---
EXAMINATION TYPE: XR Hip Bilateral and AP pelvis DATE OF EXAM: 11/25/2018 COMPARISON: Bilateral hip and AP pelvis HISTORY: Pain in both hips Frontal view of the pelvis and 2 views of each hip are submitted and correlated to prior left hip 08/06 Degenerative disc changes are noted in the lower lumbar spine. Patient is status post left hip arthro plasty. Heterotopic new bone formation present about the left hip. There is normal alignment. No frac ture or dislocation. There is abnormal thickening of the proximal right femoral cortex with contour a nomaly present. Findings thought likely to be chronic. IMPRESSION: Postop change. Abnormal thickening, contour of the proximal right femoral cortex along th e diaphysis may be due to remote trauma or possibly chronic infection, correlate for appropriate hist ory. Degenerative disc disease.
== END | disposition home or self-care (01) ==
LOC: RADXRMAIN 16:24
PROVIDERS: ATTEND Family Medicine
DX: R93.7 Abnormal findings on diagnostic imaging of other parts of musculoskeletal system (principal); M25.552 Pain in left hip; Z98.890 Other specified postprocedural states
CPT/HCPCS: 73521

== ENCOUNTER → 2018-12-23 | Outpatient (CLI) | payer MEDICARE ==
[2018-12-23 12:11] VITALS: BP 136/89; PULSE 56; RESP 16
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
== END | disposition home or self-care (01) ==
LOC: PNWHC3 11:50
PROVIDERS: ATTEND Anesthesiology
DX: G89.29 Other chronic pain (principal); M47.816 Spondylosis without myelopathy or radiculopathy, lumbar region; M46.1 Sacroiliitis, not elsewhere classified; M25.551 Pain in right hip; M25.552 Pain in left hip; F17.200 Nicotine dependence, unspecified, uncomplicated; Z71.6 Tobacco abuse counseling; Z87.81 Personal history of (healed) traumatic fracture; Z98.890 Other specified postprocedural states; Z96.642 Presence of left artificial hip joint; Z79.1 Long term (current) use of non-steroidal anti-inflammatories (NSAID); Z79.899 Other long term (current) drug therapy
CPT/HCPCS: 99211

== ENCOUNTER 2018-12-29 08:45 | Day surgery (SDC) | payer MEDICARE ==
[2018-12-25 15:19] VITALS: BMI 23.7
[2018-12-29 09:00] VITALS: RESP 18; TEMP 98
[2018-12-29] MEDS ORDERED: LIDOCAINE 1% 20 ML VIAL (10MG/ML) FOR IV START INTRADERMA ONE (09:19)
--- NOTE | 2018-12-29 10:04 | P.PCN ---
Date of Procedure: 12/29/18 Procedure(s) Performed: PREOPERATIVE DIAGNOSIS : Lumbar spondylosis with Facet Arthropathy without myelopathy POSTOPERATIVE DIAGNOSIS: same PROCEDURE: Diagnostic lumbar medial branch block with fluoroscopy at bilateral L3, L4, and dorsal rami of L5 ANESTHESIA: Local anesthetic; moderate sedation with 2 mg of versed Surgeon: Anusha Winters MD PROCEDURE INDICATION: My spondylosis, second medial branch block PROCEDURE DESCRIPTION: The patient was seen and identified in the preop holding area , risks and benefits and possible complications of the procedure and alternative were discussed with the patient, and the patient agreed to proceed with the procedure and signed the consent IV was started and vital signs monitored during the procedure and fluoroscopy was used to maximize the benefit and accuracy of the needle placement, and sedation was given to decrease patient anxiety, patient was taken to the procedure room and placed in prone position vital signs monitored in the back prepped. Under strict sterile technique using a right oblique fluoroscopy ,the junction of the transverse process and the superior articulating process of the I lateral L3- 4 , L4- 5, and L5-S1 vertebra which corresponding to the fluoroscopy image of the eye of the Stef dog on the block side for the medial branches and subsequently , after local infiltration of skin and subcutaneous tissues with lidocaine 1% one mL at each level ,then one 25-gauge Quincke-type needles was placed at the junction of the base of the transverse process and the superior articular process at the appropriate level, and the needle was advanced until the periosteum contacted, needle placement confirmed with AP and oblique view and after appropriate needle placement confirmed, and after negative aspiration, 0.5 mL of Marcaine 0.5% was injected at each level and the needle subsequently removed. Images were saved to radiology. At the end of the procedure and the needles removed and a bandage applied after the skin was cleaned the cleaning solution patient taken to recovery room in stable condition and monitors in the recovery room for 20-30 minutes and discharged home in stable condition after discharge criteria met and patient will follow up with the pain clinic in 2-4 weeks to discuss potential RFA. EBL: Minimal COMPLICATION: None.
[2018-12-29] MEDS ORDERED: IV FLUID CONTINUATION 700 ML IV ONE (10:05)
--- NOTE | 2018-12-29 10:18 | FL ---
EXAMINATION TYPE: FL guided pain mgmt statistic DATE OF EXAM: 12/29/2018 HISTORY: Flouroscopy time 9 seconds of fluoroscopy provided. IMPRESSION: 1. Fluoroscopy time.
[2018-12-29 10:22] VITALS: BP 160/90; PULSE 56
== END 2018-12-29 10:45 | disposition home or self-care (01) ==
LOC: ORPAIN 08:45
PROVIDERS: ATTEND Student in an Organized Health Care Education/Training Program
DX: G89.29 Other chronic pain (principal); M47.26 Other spondylosis with radiculopathy, lumbar region; Z96.642 Presence of left artificial hip joint; M19.012 Primary osteoarthritis, left shoulder; F17.200 Nicotine dependence, unspecified, uncomplicated; M46.1 Sacroiliitis, not elsewhere classified; Z98.890 Other specified postprocedural states; M25.552 Pain in left hip; M25.551 Pain in right hip; Z79.1 Long term (current) use of non-steroidal anti-inflammatories (NSAID); Z79.899 Other long term (current) drug therapy
CPT/HCPCS: 64493; 64494; J2250; 99152

== ENCOUNTER → 2019-01-13 | Outpatient (CLI) | payer MEDICARE ==
[2019-01-13 12:56] VITALS: BP 150/79; PULSE 74; RESP 18
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
== END | disposition home or self-care (01) ==
LOC: PNWHC3 12:05
PROVIDERS: ATTEND Anesthesiology
DX: M47.816 Spondylosis without myelopathy or radiculopathy, lumbar region (principal); M46.1 Sacroiliitis, not elsewhere classified; S72.002A Fracture of unspecified part of neck of left femur, initial encounter for closed fracture; S72.001A Fracture of unspecified part of neck of right femur, initial encounter for closed fracture; S82.91XB Unspecified fracture of right lower leg, initial encounter for open fracture type I or II; Z98.890 Other specified postprocedural states; F17.200 Nicotine dependence, unspecified, uncomplicated; Z79.1 Long term (current) use of non-steroidal anti-inflammatories (NSAID); Z79.899 Other long term (current) drug therapy
CPT/HCPCS: 99211

== ENCOUNTER → 2019-02-03 | Outpatient (CLI) | payer MEDICARE ==
[2019-02-03 10:23] VITALS: BP 136/81; PULSE 64; RESP 16
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
== END ==
LOC: PNWHC3 09:54
PROVIDERS: ATTEND Anesthesiology
DX: G89.29 Other chronic pain (principal); M47.816 Spondylosis without myelopathy or radiculopathy, lumbar region; M46.1 Sacroiliitis, not elsewhere classified; M25.552 Pain in left hip; M25.551 Pain in right hip; Z87.81 Personal history of (healed) traumatic fracture; Z87.828 Personal history of other (healed) physical injury and trauma; Z87.891 Personal history of nicotine dependence; Z98.890 Other specified postprocedural states; Z79.899 Other long term (current) drug therapy; Z79.1 Long term (current) use of non-steroidal anti-inflammatories (NSAID)
CPT/HCPCS: 99211

== ENCOUNTER 2019-02-16 09:47 | Day surgery (SDC) | payer MEDICARE ==
[2019-02-15 10:04] VITALS: BMI 23.7
[2019-02-16 10:08] VITALS: TEMP 97.6
[2019-02-16] MEDS ORDERED: LIDOCAINE 1% 20 ML VIAL (10MG/ML) FOR IV START INTRADERMA ONE (10:08)
[2019-02-16] MEDS ORDERED: IV FLUID CONTINUATION 1,000 ML IV ONE (10:45)
[2019-02-16 10:53] VITALS: RESP 18
[2019-02-16 11:07] VITALS: BP 148/79; PULSE 78
--- NOTE | 2019-02-16 11:19 | P.PCN ---
Date of Procedure: 02/16/19 Procedure(s) Performed: OPERATION: Radiofrequency ablation of the medial branch lumbar area at left side, L3 medial branch, L4 medial branch, and dorsal rami of 5 levels under fluoroscopic guidance. PREOPERATIVE DIAGNOSES: 1. Lumbar facet arthropathy. 2. Lumbar degenerative disc disease. POSTOPERATIVE DIAGNOSES: 1. Lumbar facet arthropathy. 2. Lumbar degenerative disc disease. COMPLICATIONS: None. PHYSICIAN: Anusha Winters MD ANESTHESIA: moderate sedation with 2 mg of midazolam and 100 mcg of fentanyl, CONDITION: Stable. INDICATION FOR THE PROCEDURE: This is 58-year-old male with a history of low back pain. Procedure, risks and benefits discussed with the patient who agreed with proceeding. Patient taken to the operating room, placed in prone position. All standard monitors applied to the patient. Then after induction of anesthesia, back prepped with Betadine 3 times. Then under fluoroscopic guidance we used 1% lidocaine 5 mL for skin and subcutaneous tissue infiltrations, Then after that, 18-gauge radiofrequency active-tip needles, 3 needles used, each one of them placed at the junction of the base of the transverse process and the superior articulating process of the left side at, L3-4, L4-5 and L5-S1 levels. Needle placement confirmed with AP and oblique and lateral views. Then after appropriate needle placement confirmed, we checked for the motor stimulation at 2.5 v, which was positive for localized contractions in the lumbar area and there were no contractions in the lower extremities. Then 1 cc of 4% lidocaine was injected into each needle. Then after that, the radiofrequency done at 80 degrees Centigrade for 90 seconds at each level. The needles were subsequently removed. Images were saved to patient's chart. Patient tolerated the procedure well without any complication and will follow up for right-sided sided RFA.
--- NOTE | 2019-02-16 13:02 | FL ---
Fluoroscopy HISTORY: Pain 12 seconds fluoroscopy time supplied to the referring clinician. 3 intraoperative C-arm images docum ent the procedure. See dictated report from anesthesia.
== END 2019-02-16 11:15 | disposition home or self-care (01) ==
LOC: ORPAIN 09:47
PROVIDERS: ATTEND Student in an Organized Health Care Education/Training Program
DX: M51.36 Other intervertebral disc degeneration, lumbar region (principal); M47.816 Spondylosis without myelopathy or radiculopathy, lumbar region
CPT/HCPCS: 64635; 64636 ×2; J2250; J3010; 99152

== ENCOUNTER → 2019-03-08 | Day surgery (SDC) | payer MEDICARE ==
[2019-03-03 13:26] VITALS: BMI 23.7
[~2019-03-08] MED LIST changes: +IV FLUID CONTINUATION 1,000 ML IV ONE; +LIDOCAINE 1% 20 ML VIAL (10MG/ML) FOR IV START INTRADERMA ONE
[2019-03-08 09:48] VITALS: RESP 16; TEMP 98.1
--- NOTE | 2019-03-08 11:04 | P.PCN ---
Date of Procedure: 03/08/19 Procedure(s) Performed: PREOPERATIVE DIAGNOSIS: Lumbar Spondylosis POSTOPERATIVE DIAGNOSIS: Same PROCEDURES: Radiofrequency ablation of the L3, L4, L5 medial branches with fluoroscopic guidance on the right side SURGEON: Bessy Aponte MD. ANESTHESIA: Lidocaine 1% 5 mL, Moderate sedation with intravenous Versed and fentanyl, sedation time 21 minutes EBL: Minimal Fluoroscopy was used for the procedure and images were saved in the radiology portion of the chart. PROCEDURE INDICATION: The patient with low back pain secondary to lumbar facet arthropathy who had more than 50% relief of pain with previous diagnostic lumbar medial branch block X2. PROCEDURE DESCRIPTION / TECHNIQUE: The patient was seen and identified in the preoperative area. Risks, benefits, complications, including but not limited to risk of infection ,bleeding , allergic reactions to the medications and incomplete pain relief , and alternatives were discussed with the patient, the patient agreed to proceed with the procedure and signed the consent. IV was started. The operative site was marked. Patient was taken to the OR and time out was completed. The patient was placed in the prone position on the procedure table. The lumbar area was prepped and draped in the usual sterile fashion. . Vital signs were closely monitored during the procedure .IV sedation was used during the procedure to decrease patients anxiety. Using AP and then oblique fluoroscopy, the "eye of the Stef dog" corresponding to the connection between the superior and transverse articular processes of the L4 and L5 as well as the sacral ala were identified, marked, and localized with 1% lidocaine. Subsequently, an 18 guage 150 mm radiofrequency cannula with a 10-mm active tip was advanced guided by fluoroscopy to the identified target at each site. Needle positioning was confirmed on AP, oblique and lateral fluoroscopy. Motor testing at 2.5 Hz was done with paraspinal muscle stimulation only, and no radicular symptoms down the legs. Then 1 mL of 4% lidocaine was injected in each site. Radiofrequency thermocoagulation at 80 degrees celsius for 90 seconds was then performed. Stanton were removed. Sterile dressings were applied. COMPLICATIONS: No acute complications. DISPOSITION / PLANS: The patient was placed in a supine position and transferred to the recovery area in a stable condition for observation and was discharged from the recovery room after meeting discharge criteria. Home discharge instructions given to the patient by the staff. The patient will follow up in clinic in 4 weeks.
[2019-03-08 11:20] VITALS: BP 152/88; PULSE 62
--- NOTE | 2019-03-08 11:47 | FL ---
EXAMINATION TYPE: FL guided pain mgmt statistic DATE OF EXAM: 03/08/2019 HISTORY: Flouroscopy time 13 seconds of fluoroscopy provided. IMPRESSION: 1. Fluoroscopy time.
== END ==
LOC: ORPAIN 09:10
PROVIDERS: ATTEND Anesthesiology
DX: M47.816 Spondylosis without myelopathy or radiculopathy, lumbar region (principal)
CPT/HCPCS: 64635; 64636; J2250; J3010; 99152; 99153

== ENCOUNTER → 2019-04-13 | Outpatient (CLI) | payer MEDICARE ==
[2019-04-13 13:56] VITALS: BP 137/82; PULSE 88; RESP 20
--- NOTE | 2019-04-14 20:52 | P.PAINPG ---
Subjective Progress Note Date: 04/13/19 (\) This is a follow-up visit for this 59 years old male with a chronic history of severe low back pain, his neck muscles with lumbar spondylosis and lumbar facet arthropathy, status post radiofrequency thermocoagulation of the medial branch lumbar area, he reported that his low back pain improved significantly but he continued to have bilateral hip pain, left hip pain increased with walking and any activity, he denies any motor or sensory deficit he denies any fever or night sweats under is no change in bowel movement or urination, he continued to use Mobic, Neurontin and is getting prescription refills from his primary care Objective - Vital Signs Vital signs: Vital Signs Temp Pulse 88 04/13/19 13:49 Resp 20 04/13/19 13:49 BP 137/82 04/13/19 13:49 Pulse Ox 93 L 04/13/19 13:49 - Exam Physical Examinations : -Constitutiona : Cooperative , not in acute distress . -HEENT : nech : supple , no Lymphadenopathy , normal thyroid size . : eyes : no ptosis , no icterus, no photophobia . - neurologic : Cranial nerve II to XII intact , no focal neurological deffecit . -psychatric : alert , oriented X 3 , appropriate affect , intact judgment and insight . -Lymphatic : no Lymphadenopathy . - musculoskeltal : Lumber spine moter stegnth lower extremities ,thigh and legs 5/5 Right side , 5/5 Left side Active and passive movement of both hips are associated with severe pain Assessment and Plan Plan: Assessment and plan= lumbar spondylosis with lumbar facet arthropathy. Bilateral hip pain. Low back pain improved after radiofrequency thermocoagulation of the medial branch lumbar area. He continued to have bilateral hip pain he will be referred to orthopedic surgeon for evaluation Time with Patient: Less than 30 PQRS Measure Charge Sheet Measure #130: Documentation of Current Meds in Medical Chart: Patient's medications documented in chart Measure #226: Tobacco Use: Screen & Cessation Intervention: Pt screened for tobacco use AND intervention given Measure #111: Pneumonia Vaccination: Pneumococcal vaccine administered or previously received Measure #47: Advance Care Plan: Advance care planning discussed & documented, pt chose/unable to give Measure #412: Opioid Treatment Agreement: No documentation of signed opioid treatment agreement Measure #408: Opioid Therapy Follow-up Evaluation: Patient had NO f/u eval minimum every 3 months during opioid therapy Measure #317: Preventitive Care & Scrn High Bld Press & F/U: Normal blood pressure, f/u not required Measure #128: Body Mass Index (BMI) Screening & Follow-up: BMI documented ABOVE normal parameters - f/u documented Measure #131: Pain Assessment & Follow-up: Pain positive & plan documented, Follow-up scheduled Measure #431: Unhealthy Alcohol Use Preventative Care & Scrn: Patient not identified as an unhealthy alcohol user PQRS Narrative: Smoking Status Former smoker Blood Pressure 137/82 Pain Intensity [Bilateral Hip] 0 Scale Used Numeric (1 - 10) Hx Alcohol Use (MH) No Home Medications: Ambulatory Orders Pantoprazole [Protonix] 40 mg PO DAILY #30 tablet. 04/09/16 Gabapentin 600 mg PO BID 05/23/16 ARIPiprazole [Abilify] 15 mg PO DAILY 09/25/17 Metoprolol Succinate [Toprol XL] 25 mg PO HS 09/25/17 diphenhydrAMINE [Benadryl] 50 mg PO HS 09/25/17 lamoTRIgine [LaMICtal] 200 mg PO BID 09/25/17 Meloxicam [Mobic] 15 mg PO BID 11/04/18 Controlled Substance Measures - Controlled Substance Measures Is patient prescribed a controlled substance at discharge?: No
== END | disposition home or self-care (01) ==
LOC: PNWHC3 13:41
PROVIDERS: ATTEND Specialist
DX: M47.816 Spondylosis without myelopathy or radiculopathy, lumbar region (principal); M46.96 Unspecified inflammatory spondylopathy, lumbar region; M25.552 Pain in left hip; M25.551 Pain in right hip; Z98.890 Other specified postprocedural states; Z87.891 Personal history of nicotine dependence; Z79.1 Long term (current) use of non-steroidal anti-inflammatories (NSAID); Z79.899 Other long term (current) drug therapy
CPT/HCPCS: 99211

== ENCOUNTER 2020-08-29 11:24 | Observation (INO) | payer MEDICARE ==
[2020-08-29] MEDS ORDERED: SODIUM CHLORIDE 0.9% 500 ML 500 ML IV STA (11:49)
--- NOTE | 2020-08-29 12:11 | ED ---
General Adult HPI - General Chief complaint: Dizziness Stated complaint: Dizziness,Coughing Time Seen by Provider: 08/29/20 11:46 Source: patient, RN notes reviewed, old records reviewed Mode of arrival: ambulatory Limitations: no limitations - History of Present Illness Initial comments: 60-year-old male presenting with 3 days of lightheadedness, dizziness. He also reports symptoms of mild cough and congestion. Uncertain if he has come in contact with anyone with coronavirus. He has not been vaccinated. He denies central chest pain. Denies abdominal pain. Denies focal numbness or weakness. Denies significant headache. - Related Data Home Medications Medication Instructions Recorded Confirmed Gabapentin 600 mg PO BID 05/23/16 04/13/19 ARIPiprazole [Abilify] 15 mg PO DAILY 09/25/17 04/13/19 Metoprolol Succinate [Toprol XL] 25 mg PO HS 09/25/17 04/13/19 diphenhydrAMINE [Benadryl] 50 mg PO HS 09/25/17 04/13/19 lamoTRIgine [LaMICtal] 200 mg PO BID 09/25/17 04/13/19 Meloxicam [Mobic] 15 mg PO BID 11/04/18 04/13/19 Previous Rx's Medication Instructions Recorded Pantoprazole [Protonix] 40 mg PO DAILY #30 tablet. 04/09/16 Allergies Allergy/AdvReac Type Severity Reaction Status Date / Time No Known Allergies Allergy Verified 08/29/20 11:34 Review of Systems ROS Statement: Those systems with pertinent positive or pertinent negative responses have been documented in the HPI. ROS Other: All systems not noted in ROS Statement are negative. Past Medical History Past Medical History: Eye Disorder, GI Bleed, Hypertension Additional Past Medical History / Comment(s): chronic back pain; Perforated bowel History of Any Multi-Drug Resistant Organisms: None Reported Past Surgical History: Bowel Resection, Joint Replacement, Orthopedic Surgery Additional Past Surgical History / Comment(s): left hip, right hip compound fracture,PAIN CLINIC PROCEDURE, SX FOR PERFORATED BOWEL Past Anesthesia/Blood Transfusion Reactions: No Reported Reaction Past Psychological History: Anxiety, Bipolar, Depression Smoking Status: Current every day smoker Past Alcohol Use History: None Reported Past Drug Use History: None Reported - Past Family History Mother Family Medical History: No Reported History General Exam Limitations: no limitations General appearance: alert, in no apparent distress, anxious Head exam: Present: atraumatic, normocephalic Eye exam: Present: normal appearance, PERRL ENT exam: Present: mucous membranes dry Neck exam: Present: normal inspection. Absent: tenderness, meningismus Respiratory exam: Absent: normal lung sounds bilaterally, respiratory distress, wheezes Cardiovascular Exam: Present: normal rhythm, tachycardia GI/Abdominal exam: Present: soft. Absent: distended, tenderness, guarding, rebound Extremities exam: Present: normal inspection, normal capillary refill. Absent: pedal edema Neurological exam: Present: alert, oriented X3, CN II-XII intact. Absent: motor sensory deficit Psychiatric exam: Present: normal affect, normal mood Skin exam: Present: warm, dry, intact. Absent: cyanosis, diaphoretic Course Vital Signs 08/29/20 08/29/20 08/29/20 11:30 12:44 13:41 Temperature 100.7 F H 98.7 F Pulse Rate 114 H 90 86 Respiratory 18 18 18 Rate Blood Pressure 177/103 139/94 154/94 O2 Sat by Pulse 96 94 L 95 Oximetry EKG Findings - EKG Comments: EKG Findings:: EKG: Sinus tachycardia, rate of 101, and there is diffuse T-wave inversion, no ST segment elevation Medical Decision Making - Medical Decision Making 58-year-old male with lightheadedness, dizziness. No focal findings on exam. Stable vitals. EKG sinus rhythm without ST segment elevation, T-wave inversion throughout the precordial leads. Patient has no chest pain. No abdominal pain chest x-rays negative for focal pneumonia. He has normal CBC, CMP showing a mild acute kidney injury, creatinine 1.3. Troponin is negative. I did perform CT angiography secondary to elevated d-dimer in this patient which is negative for pulmonary embolism. His coronavirus test is negative. He will be kept in observation for IV hydration, serial cardiac enzymes, telemetry. Case discussed with Dr. Allen who will admit. - Lab Data Result diagrams: 08/29/20 12:10 08/29/20 12:10 Lab Results 08/29/20 08/29/20 08/29/20 Range/Units 12:10 12:10 12:10 WBC 7.3 (3.8-10.6) k/uL RBC 4.90 (4.30-5.90) m/uL Hgb 15.4 (13.0-17.5) gm/dL Hct 44.3 (39.0-53.0) % MCV 90.5 (80.0-100.0) fL MCH 31.4 (25.0-35.0) pg MCHC 34.7 (31.0-37.0) g/dL RDW 13.2 (11.5-15.5) % Plt Count 264 (150-450) k/uL MPV 7.4 Neutrophils % 69 % Lymphocytes % 22 % Monocytes % 6 % Eosinophils % 2 % Basophils % 1 % Neutrophils # 5.0 (1.3-7.7) k/uL Lymphocytes # 1.6 (1.0-4.8) k/uL Monocytes # 0.4 (0-1.0) k/uL Eosinophils # 0.2 (0-0.7) k/uL Basophils # 0.0 (0-0.2) k/uL PT 10.5 (9.0-12.0) sec INR 1.0 (<1.2) APTT 22.0 (22.0-30.0) sec D-Dimer 0.77 H (<0.60) mg/L FEU Sodium (137-145) mmol/L Potassium (3.5-5.1) mmol/L Chloride (98-107) mmol/L Carbon Dioxide (22-30) mmol/L Anion Gap mmol/L BUN (9-20) mg/dL Creatinine (0.66-1.25) mg/dL Est GFR (CKD-EPI)AfAm (>60 ml/min/1.73 sqM) Est GFR (CKD-EPI)NonAf (>60 ml/min/1.73 sqM) Glucose (74-99) mg/dL Calcium (8.4-10.2) mg/dL Magnesium (1.6-2.3) mg/dL Total Bilirubin (0.2-1.3) mg/dL AST (17-59) U/L ALT (4-49) U/L Alkaline Phosphatase (38-126) U/L Troponin I (0.000-0.034) ng/mL Total Protein (6.3-8.2) g/dL Albumin (3.5-5.0) g/dL Urine Color Urine Appearance (Clear) Urine pH (5.0-8.0) Ur Specific [place] (1.001-1.035) Urine Protein (Negative) Urine Glucose (UA) (Negative) Urine Ketones (Negative) Urine Blood (Negative) Urine Nitrite (Negative) Urine Bilirubin (Negative) Urine Urobilinogen (<2.0) mg/dL Ur Leukocyte Esterase (Negative) Urine RBC (0-5) /hpf Urine WBC (0-5) /hpf Ur Squamous Epith Cells (0-4) /hpf Hyaline Casts (0-2) /lpf Urine Mucus (None) /hpf Coronavirus (PCR) Not Detected (Not Detectd) 08/29/20 08/29/20 08/29/20 Range/Units 12:10 12:10 12:10 WBC (3.8-10.6) k/uL RBC (4.30-5.90) m/uL Hgb (13.0-17.5) gm/dL Hct (39.0-53.0) % MCV (80.0-100.0) fL MCH (25.0-35.0) pg MCHC (31.0-37.0) g/dL RDW (11.5-15.5) % Plt Count (150-450) k/uL MPV Neutrophils % % Lymphocytes % % Monocytes % % Eosinophils % % Basophils % % Neutrophils # (1.3-7.7) k/uL Lymphocytes # (1.0-4.8) k/uL Monocytes # (0-1.0) k/uL Eosinophils # (0-0.7) k/uL Basophils # (0-0.2) k/uL PT (9.0-12.0) sec INR (<1.2) APTT (22.0-30.0) sec D-Dimer (<0.60) mg/L FEU Sodium 136 L (137-145) mmol/L Potassium 4.1 (3.5-5.1) mmol/L Chloride 102 (98-107) mmol/L Carbon Dioxide 26 (22-30) mmol/L Anion Gap 8 mmol/L BUN 23 H (9-20) mg/dL Creatinine 1.38 H (0.66-1.25) mg/dL Est GFR (CKD-EPI)AfAm 63 (>60 ml/min/1.73 sqM) Est GFR (CKD-EPI)NonAf 55 (>60 ml/min/1.73 sqM) Glucose 158 H (74-99) mg/dL Calcium 9.7 (8.4-10.2) mg/dL Magnesium 1.8 (1.6-2.3) mg/dL Total Bilirubin 0.5 (0.2-1.3) mg/dL AST 26 (17-59) U/L ALT 15 (4-49) U/L Alkaline Phosphatase 68 (38-126) U/L Troponin I <0.012 (0.000-0.034) ng/mL Total Protein 7.4 (6.3-8.2) g/dL Albumin 4.6 (3.5-5.0) g/dL Urine Color Yellow Urine Appearance Clear (Clear) Urine pH 5.5 (5.0-8.0) Ur Specific [place] 1.023 (1.001-1.035) Urine Protein Trace H (Negative) Urine Glucose (UA) Negative (Negative) Urine Ketones Negative (Negative) Urine Blood Negative (Negative) Urine Nitrite Negative (Negative) Urine Bilirubin Negative (Negative) Urine Urobilinogen <2.0 (<2.0) mg/dL Ur Leukocyte Esterase Moderate H (Negative) Urine RBC 3 (0-5) /hpf Urine WBC 8 H (0-5) /hpf Ur Squamous Epith Cells 2 (0-4) /hpf Hyaline Casts 13 H (0-2) /lpf Urine Mucus Rare H (None) /hpf Coronavirus (PCR) (Not Detectd) Disposition Clinical Impression: Dehydration, Near syncope, HAILEY (acute kidney injury) Disposition: ADMITTED IP TO THIS [facility] Condition: Stable Is patient prescribed a controlled substance at d/c from ED?: No Referrals: Reuben Cameron [Primary Care Provider] - 1-2 days Decision to Admit Reason: Admit from EC Decision Date: 08/29/20 Decision Time: 14:12
[2020-08-29 12:34] LABS: Basophils % (A) 1 %; Eosinophils # (A) 0.2 k/uL (0-0.7); Eosinophils % (A) 2 %; HCT 44.3 % (39.0-53.0); HGB 15.4 gm/dL (13.0-17.5); Lymphocytes # (A) 1.6 k/uL (1.0-4.8); Lymphocytes % (A) 22 %; MCH 31.4 pg (25.0-35.0); MCHC 34.7 g/dL (31.0-37.0); MCV 90.5 fL (80.0-100.0); Mean Platelet Volume 7.4; Monocytes # (A) 0.4 k/uL (0-1.0); Monocytes % (A) 6 %; Neutrophils % (A) 69 %; Platelet Count 264 k/uL (150-450); RDW 13.2 % (11.5-15.5); WBC 7.3 k/uL (3.8-10.6)
--- NOTE | 2020-08-29 12:42 | XR ---
EXAMINATION TYPE: XR chest 2V DATE OF EXAM: 08/29/2020 COMPARISON: Chest x-ray 09/25/2017 HISTORY: Syncope, dizziness TECHNIQUE: Frontal and lateral views of the chest are obtained. FINDINGS: There is no focal air space opacity, pleural effusion, or pneumothorax seen. The cardiac silhouette size is within normal limits. Dominant lung volumes suggest underlying COPD. Wedge sarah aidee deformity in the midthoracic spine is stable. There is eventration of right hemidiaphragm. The o sseous structures are intact. IMPRESSION: No acute cardiopulmonary process.
[2020-08-29 12:48] LABS: Appearance,Urine Clear (Clear); Bilirubin,Urine Negative (Negative); Blood,Urine Negative (Negative); Color,Urine Yellow; Glucose,Urine (UA) Negative (Negative); Hyaline Casts,Urine 13 /lpf (0-2); Ketones,Urine Negative (Negative); Leukocyte Esterase,Urine Moderate (Negative); Mucus,Urine Rare /hpf; Nitrite,Urine Negative (Negative); PH, Urine 5.5 (5.0-8.0); Protein,Urine Trace (Negative); RBC,Urine 3 /hpf (0-5); Specific Gravity,Urine 1.023 (1.001-1.035); Squamous Epithelial Cell,Urine 2 /hpf (0-4); Urobilinogen,Urine <2.0 mg/dL (<2.0); WBC,Urine 8 /hpf (0-5)
[2020-08-29 12:52] LABS: Albumin 4.6 g/dL (3.5-5.0); Calcium 9.7 mg/dL (8.4-10.2); Total Bilirubin 0.5 mg/dL (0.2-1.3); Total Protein 7.4 g/dL (6.3-8.2)
[2020-08-29 12:54] LABS: Prothrombin Time 10.5 sec (9.0-12.0)
[2020-08-29 12:59] LABS: Magnesium 1.8 mg/dL (1.6-2.3); Potassium 4.1 mmol/L (3.5-5.1)
[2020-08-29 13:04] LABS: D-Dimer 0.77 mg/L FEU (<0.60)
[2020-08-29] MEDS ORDERED: SODIUM CHLORIDE 0.9% 500 ML 500 ML IV ONE (13:15)
--- NOTE | 2020-08-29 13:54 | CT ---
There EXAMINATION TYPE: CT angio chest DATE OF EXAM: 08/29/2020 COMPARISON: None HISTORY: EDDIE CT DLP: 353.3 mGycm CONTRAST: CT chest with contrast and 3D reconstruction with MIP imaging is performed with IV Contrast, patient injected with 100ml mL of Isovue 370. Contrast-enhanced CT of the chest was performed through the course of the pulmonary arteries with raji g and mediastinal window settings submitted. 3D reconstruction with MIP imaging was also performed. PULMONARY ARTERIES: The pulmonary arteries and their major tributaries are patent. I do not see karol dence for sizable filling defect to suggest pulmonary embolic process. LUNGS: The lungs are clear and free of infiltrate. No evidence for atelectasis. No pulmonary nodule or mass is detected. No pleural effusion. MEDIASTINUM: Thoracic aorta is of normal caliber,however, evaluation is limited given timing of the contrast bolus. If there is concern for thoracic aortic pathology consider VARGAS. Correlate clinicall y . The heart is not enlarged. No evidence for mediastinal mass. No mediastinal lymph nodes greater than 1cm. HILAR STRUCTURES: No evidence for mass. No hilar lymph nodes greater than 1 cm. UPPER ABDOMEN: No significant abnormality is seen. IMPRESSION: 1. No evidence for Pulmonary embolism at this time.
[2020-08-29] MEDS ORDERED: LORazepam 2 MG/ML INJ IV STA (13:58)
[2020-08-29] MEDS ORDERED: NALOXONE 0.4 MG/ML 1 ML VIAL IV PRN ×2 (14:09→15:19)
[2020-08-29] MEDS ORDERED: ONDANSETRON 4 MG/2 ML VIAL IVP PRN (14:09)
[2020-08-29] MEDS: SODIUM CHLORIDE 0.9% 1,000 ML IV SCH (14:11)
[2020-08-29] MEDS ORDERED: MORPHINE SULFATE 4 MG/ML SYRINGE IVP STA (14:44)
[2020-08-29] MEDS ORDERED: MELATONIN 3 MG TABLET PO PRN (15:19)
--- NOTE | 2020-08-29 15:36 | P.HPIM ---
<Mustapha Aguilera - Last Filed: 08/29/20 14:42> History of Present Illness H&P Date: 08/29/20 History of presenting illness: Patient is a 60-year-old male with a past medical history of hypertension, hyperlipidemia, and GERD. Patient presented to the emergency department with a chief complaint of generalized weakness, dizziness and lightheadedness accompanied by mild upper respiratory symptoms of cough and congestion. Patient was seen and fully evaluated in the emergency department and found to have a slightly elevated d-dimer of 0.[address] PE was performed showing n egative for pulmonary embolism. Chest x-ray also completed negative for acute cardiopulmonary process. EKG completed showing sinus tachycardia at 101 bpm with T-wave inversion in precordial leads and no signs of ST elevation or depression seen. Troponin negative. CBC unremarkable. BMP revealing mild elevation of renal function with BUN 23, creatinine 1.38, and GFR 55 with baseline creatinine 1.2. Covid PCR negative. Patient reports feeling dizziness and lightheadedness 3 days accompanied by mild upper respiratory symptoms of cough and congestion. Patient reports the dizziness became so severe today he came to the emergency department for evaluation. Patient currently admitted under our services to general medical observation unit for ACS rule out. Patient received a 1 L bolus 0.9% normal saline in ED and has reported improvement of the dizziness at this time. Patient denies having any changes in his vision or hearing, headache, sore throat or dysphasia, difficulty with speec h, numbness of face or tongue, chest pain or palpitations, shortness of breath, abdominal pain, nausea, vomiting, or experiencing any numbness/tingling/focal weakness in his extremities. Review of Systoms: Pertinent positives and negatives as discussed in HPI, a complete review of systems was performed and all other systems are negative. Physical exam: General: non toxic, no distress, appears at stated age Derm: warm, dry Head: atraumatic, normocephalic, symmetric Eyes: EOMI, no lid lag, anicteric sclera Mouth: no lip lesion, mucus membranes moist Cardiovascular: S1S2 reg, no murmur, positive posterior tibial pulses bilaterally, cap refill less than 2 seconds. Lungs: Respirations even, regular, and unlabored on room air. Lungs CTA bilaterally with no rhonchi, no rales, and no wheezes. No accessory muscle use. Abdominal: Soft, nontender to palpation, no guarding, no appreciable organomegaly. Ext: no gross muscle atrophy, no edema, no contractures. Neuro: CN II-XI grossly intact, no focal neuro deficits Psych: Alert, oriented, appropriate affect. Plan of care: Dizziness/lightheadedness possibly secondary to dehydration as symptoms improving with hydration, however we will rule out ACS. -Continue hydration with IV fluids. -Telemetry monitoring -Orthostatic vitals -EKG completed showing sinus tachycardia at 101 bpm with T-wave inversion in precordial leads and no signs of ST elevation or depression seen. -Troponin negative and will trend every 3 hours 2. HAILEY likely resulting from dehydration -BMP revealing mild elevation of renal function with BUN 23, creatinine 1.38, and GFR 55 with baseline creatinine 1.2. -Hold losartan -Patient received 1 L bolus in the ED and we will provide continued hydration with IV fluids. -Continue to monitor closely with repeat a.m. labs. Hypertension -Monitor vital signs and continue daily medication management. Hyperlipidemia -Continue daily medication regimen Anxiety and depression -Continue daily medication management. CODE STATUS: Full code DVT prophylaxis: Lovenox Discussed with: Patient and RN Anticipated discharge date: Clinical course to determine Anticipated discharge place: Home A total of 45 minutes was spent on the care of this complex patient more than 50% of the time was spent in counseling and care coordination. Past Medical History Past Medical History: Eye Disorder, GI Bleed, Hypertension Additional Past Medical History / Comment(s): chronic back pain; Perforated bowel History of Any Multi-Drug Resistant Organisms: None Reported Past Surgical History: Bowel Resection, Joint Replacement, Orthopedic Surgery Additional Past Surgical History / Comment(s): left hip, right hip compound fracture,PAIN CLINIC PROCEDURE, SX FOR PERFORATED BOWEL Past Anesthesia/Blood Transfusion Reactions: No Reported Reaction Past Psychological History: Anxiety, Bipolar, Depression Smoking Status: Current every day smoker Past Alcohol Use History: None Reported Past Drug Use History: None Reported - Past Family History Mother Family Medical History: No Reported History Medications and Allergies Home Medications Medication Instructions Recorded Confirmed Type Pantoprazole [Protonix] 40 mg PO DAILY #30 tablet. 04/09/16 08/29/20 Rx diphenhydrAMINE [Benadryl] 50 mg PO HS 09/25/17 08/29/20 History lamoTRIgine [LaMICtal] 200 mg PO DAILY 09/25/17 08/29/20 History Meloxicam [Mobic] 15 mg PO DAILY 11/04/18 08/29/20 History ARIPiprazole [Abilify Maintena] 300 mg PO Q30D 08/29/20 08/29/20 History Atorvastatin [Lipitor] 10 mg PO DAILY 08/29/20 08/29/20 History Gabapentin 800 mg PO BID 08/29/20 08/29/20 History Hydrochlorothiazide 12.5 mg PO DAILY 08/29/20 08/29/20 History [hydroCHLOROthiazide] Losartan [Cozaar] 50 mg PO DAILY 08/29/20 08/29/20 History Metoprolol Succinate (ER) [Toprol 50 mg PO DAILY 08/29/20 08/29/20 History Xl] Venlafaxine HCl ER [Effexor Xr] 150 mg PO DAILY 08/29/20 08/29/20 History traZODone HCL 50 mg PO HS 08/29/20 08/29/20 History Allergies Allergy/AdvReac Type Severity Reaction Status Date / Time No Known Allergies Allergy Verified 08/29/20 11:34 Physical Exam Vitals: Vital Signs Temp Pulse Resp BP Pulse Ox 08/29/20 14:10 79 18 145/96 95 08/29/20 13:41 98.7 F 86 18 154/94 95 08/29/20 12:44 90 18 139/94 94 L 08/29/20 11:30 100.7 F H 114 H 18 177/103 96 Intake and Output 08/28/20 08/29/20 08/29/20 22:59 06:59 14:59 Other: Weight 81.647 kg Results CBC & Chem 7: 08/29/20 12:10 08/29/20 12:10 Labs: Abnormal Lab Results - Last 24 Hours (Table) 08/29/20 08/29/20 08/29/20 Range/Units 12:10 12:10 12:10 D-Dimer 0.77 H (<0.60) mg/L FEU Sodium 136 L (137-145) mmol/L BUN 23 H (9-20) mg/dL Creatinine 1.38 H (0.66-1.25) mg/dL Glucose 158 H (74-99) mg/dL Urine Protein Trace H (Negative) Ur Leukocyte Esterase Moderate H (Negative) Urine WBC 8 H (0-5) /hpf Hyaline Casts 13 H (0-2) /lpf Urine Mucus Rare H (None) /hpf <Stna Allen - Last Filed: 08/29/20 18:53> Physical Exam Osteopathic Statement: *. No significant issues noted on an osteopathic structural exam other than those noted in the History and Physical/Consult. Vitals: Vital Signs Temp Pulse Resp BP Pulse Ox 08/29/20 18:41 71 18 112/73 96 08/29/20 17:02 76 18 117/71 96 08/29/20 16:46 79 18 109/80 94 L 08/29/20 14:51 80 18 148/99 96 08/29/20 14:10 79 18 145/96 95 08/29/20 13:41 98.7 F 86 18 154/94 95 08/29/20 12:44 90 18 139/94 94 L 08/29/20 11:30 100.7 F H 114 H 18 177/103 96 Intake and Output 08/29/20 08/29/20 08/29/20 06:59 14:59 22:59 Other: Weight 81.647 kg 81.647 kg Results CBC & Chem 7: 08/29/20 12:10 08/29/20 12:10 Labs: Abnormal Lab Results - Last 24 Hours (Table) 08/29/20 08/29/20 08/29/20 Range/Units 12:10 12:10 12:10 D-Dimer 0.77 H (<0.60) mg/L FEU Sodium 136 L (137-145) mmol/L BUN 23 H (9-20) mg/dL Creatinine 1.38 H (0.66-1.25) mg/dL Glucose 158 H (74-99) mg/dL Urine Protein Trace H (Negative) Ur Leukocyte Esterase Moderate H (Negative) Urine WBC 8 H (0-5) /hpf Hyaline Casts 13 H (0-2) /lpf Urine Mucus Rare H (None) /hpf Assessment and Plan Assessment: Patient seen and evaluated by me independently. Patient was also seen by DEMI, the original author of this note. I am in agreement with the subjective, physical exam, and assessment and plan as documented with the addition/changes of my exam and assessment below. Gen: awake, alert HEENT: normocephalic, atraumatic, good hearing acuity, moist mucous membranes Resp: good air exchange, breathing comfortably with no accessory muscle use CVS: good distal perfusion x 4, GI: soft, NTTP, ND : no SPT, no CVAT, mercedes catheter not present MSK: no pitting edema, no clubbing Neuro: non-focal, moving all extremities Psych: cooperative, euthymic mood Plan: -IV fluids -Trend troponins -Orthostatics twice a day
[2020-08-29] MEDS ORDERED: ARIPiprazole IM 400 MG VIAL (NO COST) PHARMACY STOCK IM SCH (16:00)
[2020-08-29] MEDS: ACETAMINOPHEN TAB 325 MG TAB PO PRN (18:48)
[2020-08-29] MEDS ORDERED: traZODone HCL 50 MG TAB PO SCH (21:00)
[2020-08-29] MEDS: GABAPENTIN 400 MG CAP PO SCH (21:03)
[2020-08-29] MEDS: LORazepam 2 MG/ML INJ IV PRN (21:24)
[2020-08-30] MEDS: ACETAMINOPHEN TAB 325 MG TAB PO PRN (00:13)
[2020-08-30 03:03] VITALS: PULSE 58
[2020-08-30] MEDS: SODIUM CHLORIDE 0.9% 1,000 ML IV SCH (05:10)
[2020-08-30] MEDS: LORazepam 2 MG/ML INJ IV PRN (05:57)
[2020-08-30 07:25] VITALS: BP 129/77; RESP 18; TEMP 97.5
[2020-08-30] MEDS: GABAPENTIN 400 MG CAP PO SCH (08:56)
[2020-08-30] MEDS ORDERED: VENLAFAXINE HCL ER 150 MG CAP PO SCH (09:00)
[2020-08-30] MEDS ORDERED: hydroCHLOROthiazide 12.5 MG CAP PO SCH (09:00)
[2020-08-30] MEDS ORDERED: ATORVASTATIN 10 MG TAB PO SCH (09:00)
[2020-08-30] MEDS ORDERED: METOPROLOL SUCCINATE (ER) 50 MG TAB.ER.24H PO SCH (09:00)
[2020-08-30] MEDS ORDERED: PANTOPRAZOLE 40 MG TABLET PO SCH (09:00)
[2020-08-30] MEDS ORDERED: lamoTRIgine 100 MG TAB PO SCH (09:00)
[2020-08-30] MEDS ORDERED: ENOXAPARIN 40 MG/0.4 ML SYRINGE SQ SCH (09:00)
[2020-08-30 09:13] LABS: Basophils # (A) 0.02 X 10*3/uL (0.00-0.10); Basophils % (A) 0.5 %; Eosinophils # (A) 0.23 X 10*3/uL (0.04-0.35); Eosinophils % (A) 5.5 %; HCT 35.6 % (39.6-50.0); HGB 11.9 g/dL (13.0-17.0); Lymphocytes # (A) 1.63 X 10*3/uL (0.90-5.00); Lymphocytes % (A) 38.6 %; MCH 31.1 pg (27.0-32.0); MCHC 33.4 g/dL (32.0-37.0); Monocytes # (A) 0.41 X 10*3/uL (0.20-1.00); Monocytes % (A) 9.7 %; Neutrophils # (A) 1.92 X 10*3/uL (1.80-7.70); Neutrophils % (A) 45.5 %; Platelet Count 200 X 10*3/uL (140-440); RBC 3.83 X 10*6/uL (4.40-5.60); RDW 13.3 % (11.5-14.5); WBC 4.22 X 10*3/uL (4.50-10.00)
[2020-08-30 10:39] LABS: African American GFR (CKD) 82.9 (60.0-200.0); Anion Gap 4.4 mmol/L (4.00-12.00); BUN/Creat Ratio 14.55 Ratio (12.00-20.00); Calcium 8.1 mg/dL (8.7-10.3); Carbon Dioxide 26.6 mmol/L (21.6-31.8); Magnesium 1.8 mg/dL (1.5-2.4); Non-African American GFR(CKD) 71.6 (60.0-200.0); Potassium 3.9 mmol/L (3.5-5.5)
--- NOTE | 2020-08-30 11:05 | P.DS ---
Providers Date of admission: 08/29/20 14:09 Expected date of discharge: 08/30/20 Attending physician: Stan Allen MD Primary care physician: Reuben [facility] Hospital Course: Patient is a 60-year-old male with a past medical history of hypertension, hyperlipidemia, and GERD. Patient presented to the emergency department with a chief complaint of generalized weakness, dizziness and lightheadedness accompanied by mild upper respiratory symptoms of cough and congestion. Patient was seen and fully evaluated in the emergency department and found to have a slightly elevated d-dimer of 0.[address] PE was performed showing negative for pulmonary embolism. Chest x-ray also completed negative for acute cardiopulmonary process. EKG completed showing sinus tachycardia at 101 bpm with T-wave inversion in precordial leads and no signs of ST elevation or depression seen. Troponin negative. CBC unremarkable. BMP revealing mild elevation of renal function with BUN 23, creatinine 1.38, and GFR 55. Covid PCR negative. Patient was placed on observation and treated with IV fluid hydration. Orthostatic blood pressure checked and negative. Creatinine improved to 1.1. Patient home dose of hydrochlorothiazide will be discontinued and replaced with amlodipine 2.5 mg daily. Patient will be discharged home in a stable condition. He will follow-up with his PCP as directed. Patient Condition at Discharge: Stable Plan - Discharge Summary Discharge Rx Participant: No New Discharge Prescriptions: New amLODIPine BESYLATE [Norvasc] 2.5 mg PO DAILY #30 tab Continue Pantoprazole [Protonix] 40 mg PO DAILY #30 tablet. lamoTRIgine [LaMICtal] 200 mg PO DAILY diphenhydrAMINE [Benadryl] 50 mg PO HS Meloxicam [Mobic] 15 mg PO DAILY Atorvastatin [Lipitor] 10 mg PO DAILY Metoprolol Succinate (ER) [Toprol XL] 50 mg PO DAILY Gabapentin 800 mg PO BID traZODone HCL 50 mg PO HS ARIPiprazole [Abilify Maintena] 300 mg PO Q30D Venlafaxine HCl ER [Effexor XR] 150 mg PO DAILY Losartan [Cozaar] 50 mg PO DAILY Discontinued Hydrochlorothiazide [hydroCHLOROthiazide] 12.5 mg PO DAILY Discharge Medication List Pantoprazole [Protonix] 40 mg PO DAILY #30 tablet. 04/09/16 [Rx] diphenhydrAMINE [Benadryl] 50 mg PO HS 09/25/17 [History] lamoTRIgine [LaMICtal] 200 mg PO DAILY 09/25/17 [History] Meloxicam [Mobic] 15 mg PO DAILY 11/04/18 [History] ARIPiprazole [Abilify Maintena] 300 mg PO Q30D 08/29/20 [History] Atorvastatin [Lipitor] 10 mg PO DAILY 08/29/20 [History] Gabapentin 800 mg PO BID 08/29/20 [History] Losartan [Cozaar] 50 mg PO DAILY 08/29/20 [History] Metoprolol Succinate (ER) [Toprol XL] 50 mg PO DAILY 08/29/20 [History] Venlafaxine HCl ER [Effexor XR] 150 mg PO DAILY 08/29/20 [History] traZODone HCL 50 mg PO HS 08/29/20 [History] amLODIPine BESYLATE [Norvasc] 2.5 mg PO DAILY #30 tab 08/30/20 [Rx] Follow up Appointment(s)/Referral(s): Reuben Cameron [Primary Care Provider] - 1-2 days Discharge Disposition: HOME SELF-CARE
== END 2020-08-30 13:54 | disposition home or self-care (01) ==
LOC: EC 11:24 → SUPCPDRO 11:24 → 6NMEDSUR 14:09
PROVIDERS: ADMIT Internal Medicine; ATTEND Internal Medicine
DX: N17.9 Acute kidney failure, unspecified (principal); E86.0 Dehydration; R55 Syncope and collapse; R05 Cough; R79.89 Other specified abnormal findings of blood chemistry; R09.81 Nasal congestion; I10 Essential (primary) hypertension; E78.5 Hyperlipidemia, unspecified; K21.9 Gastro-esophageal reflux disease without esophagitis; G89.29 Other chronic pain; M54.9 Dorsalgia, unspecified; H57.9 Unspecified disorder of eye and adnexa; F31.9 Bipolar disorder, unspecified; F41.9 Anxiety disorder, unspecified; F17.200 Nicotine dependence, unspecified, uncomplicated; Z20.822 Contact with and (suspected) exposure to COVID-19; Z79.899 Other long term (current) drug therapy; Z79.1 Long term (current) use of non-steroidal anti-inflammatories (NSAID); Z87.19 Personal history of other diseases of the digestive system; Z87.81 Personal history of (healed) traumatic fracture; Z96.60 Presence of unspecified orthopedic joint implant
CPT/HCPCS: 96376 ×2; 96372 ×2; 96374; 96375; 99285; 36415; 93005; 85379; 80053; 80048; 83735 ×2; 84484; 85025 ×2; 85610; 85730; 81001; 87635; 71046; 71275; G0378 ×2; J2060 ×2; J2270; J1650; Q9967

== ENCOUNTER 2020-09-10 15:02 | Observation (INO) | payer MEDICARE ==
[2020-09-10] MEDS ORDERED: SODIUM CHLORIDE 0.9% 500 ML 500 ML IV STA (16:40)
[2020-09-10 17:39] LABS: Basophils % (A) 0 %; Eosinophils # (A) 0.1 k/uL (0-0.7); Eosinophils % (A) 1 %; HCT 43.2 % (39.0-53.0); HGB 15.2 gm/dL (13.0-17.5); Lymphocytes # (A) 1.2 k/uL (1.0-4.8); Lymphocytes % (A) 17 %; MCH 31.9 pg (25.0-35.0); MCHC 35.1 g/dL (31.0-37.0); MCV 90.7 fL (80.0-100.0); Mean Platelet Volume 7.4; Monocytes # (A) 0.4 k/uL (0-1.0); Monocytes % (A) 6 %; Neutrophils # (A) 5.3 k/uL (1.3-7.7); Neutrophils % (A) 75 %; Platelet Count 253 k/uL (150-450); RBC 4.76 m/uL (4.30-5.90); RDW 13.6 % (11.5-15.5)
--- NOTE | 2020-09-10 17:48 | CT ---
EXAMINATION TYPE: CT brain wo con DATE OF EXAM: 09/10/2020 COMPARISON: 09/25/2017 HISTORY: weakness, ams CT DLP: 1103.4 mGycm Automated exposure control for dose reduction was used. There is mild cerebral atrophy. There is no mass effect nor midline shift. There is no sign of intrac ranial hemorrhage. The calvarium is intact. IMPRESSION: Cerebral atrophy. No acute intracranial abnormality.
--- NOTE | 2020-09-10 17:48 | ED ---
General Adult HPI - General Chief complaint: Weakness Stated complaint: weakness, dizziness Time Seen by Provider: 09/10/20 16:30 Source: patient, RN notes reviewed, old records reviewed Mode of arrival: ambulatory Limitations: no limitations - History of Present Illness Initial comments: 60-year-old male presents for reevaluation of dizziness, lightheadedness, difficulty ambulating. He states he's having trouble standing secondary to dizziness and weakness in both of his legs. This has been ongoing for the past several weeks. He denies chest pain or abdominal pain. Denies focal numbness or tingling. Denies headache. Denies alcohol or illicit drugs. No fever. - Related Data Home Medications Medication Instructions Recorded Confirmed diphenhydrAMINE [Benadryl] 50 mg PO HS 09/25/17 09/10/20 lamoTRIgine [LaMICtal] 200 mg PO DAILY 09/25/17 09/10/20 ARIPiprazole [Abilify Maintena] 300 mg PO Q30D 08/29/20 09/10/20 Atorvastatin [Lipitor] 10 mg PO DAILY 08/29/20 09/10/20 Gabapentin 800 mg PO BID 08/29/20 09/10/20 Losartan [Cozaar] 50 mg PO DAILY 08/29/20 09/10/20 Metoprolol Succinate (ER) [Toprol 50 mg PO DAILY 08/29/20 09/10/20 XL] Venlafaxine HCl ER [Effexor XR] 150 mg PO DAILY 08/29/20 09/10/20 traZODone HCL 50 mg PO HS 08/29/20 09/10/20 Meloxicam 15 mg PO DAILY 09/10/20 09/10/20 QUEtiapine [SEROquel] 25 mg PO BID 09/10/20 09/10/20 amLODIPine [Norvasc] 5 mg PO DAILY 09/10/20 09/10/20 Previous Rx's Medication Instructions Recorded Pantoprazole [Protonix] 40 mg PO DAILY #30 tablet. 04/09/16 Allergies Allergy/AdvReac Type Severity Reaction Status Date / Time No Known Allergies Allergy Verified 09/10/20 17:30 Review of Systems ROS Statement: Those systems with pertinent positive or pertinent negative responses have been documented in the HPI. ROS Other: All systems not noted in ROS Statement are negative. Past Medical History Past Medical History: Eye Disorder, GI Bleed, Hypertension Additional Past Medical History / Comment(s): chronic back pain; Perforated bowel History of Any Multi-Drug Resistant Organisms: None Reported Past Surgical History: Bowel Resection, Joint Replacement, Orthopedic Surgery Additional Past Surgical History / Comment(s): left hip, right hip compound fracture,PAIN CLINIC PROCEDURE, SX FOR PERFORATED BOWEL Past Anesthesia/Blood Transfusion Reactions: No Reported Reaction Past Psychological History: Anxiety, Bipolar, Depression Smoking Status: Current every day smoker Past Alcohol Use History: None Reported Past Drug Use History: None Reported - Past Family History Mother Family Medical History: No Reported History Additional Family Medical History / Comment(s): Mother of pneumonia in her 70s. Father Family Medical History: Liver Disease Additional Family Medical History / Comment(s): Father is . He had liver cirrhosis/ETOH General Exam Limitations: no limitations General appearance: alert, in no apparent distress Head exam: Present: atraumatic, normocephalic Eye exam: Present: normal appearance, PERRL ENT exam: Present: normal exam Neck exam: Present: normal inspection. Absent: tenderness, meningismus Respiratory exam: Present: normal lung sounds bilaterally. Absent: respiratory distress, wheezes Cardiovascular Exam: Present: regular rate, normal rhythm GI/Abdominal exam: Present: soft. Absent: distended, tenderness, guarding Extremities exam: Present: normal inspection, normal capillary refill. Absent: pedal edema Neurological exam: Present: alert, other (Tremor in all 4 extremities, 45 weakness in the lower extremities, no ataxia) Psychiatric exam: Present: anxious Skin exam: Present: warm, dry, intact. Absent: cyanosis, diaphoretic Course Vital Signs 09/10/20 09/10/20 15:04 18:28 Temperature 99.1 F Pulse Rate 98 78 Respiratory 18 18 Rate Blood Pressure 144/90 161/82 O2 Sat by Pulse 97 99 Oximetry EKG Findings - EKG Comments: EKG Findings:: Normal sinus rhythm, T-wave inversion in the precordial leads, rate of 72, VT interval 150, QRS duration 82, QTC 427, no ST segment elevation. Medical Decision Making - Medical Decision Making 60-year-old male presenting for evaluation of tremor, generalized weakness and difficulty ambulating. Patient's symptoms have been ongoing for approximately 2 weeks, they have gotten to the point where he is having hard time getting around her denies focal numbness, denies headache. Head CT negative for intracranial hemorrhage or mass effect. Chest x-ray negative for acute cardiopulmonary disease. Laboratory studies CBC, CMP are unremarkable. Urinalysis is pending. This is a repeat visit with similar complaint, patient will be admitted, case discussed with Dr. Godfrey who will admit, neurology placed on consult. - Lab Data Result diagrams: 09/10/20 17:01 09/10/20 17: Lab Results 09/10/20 09/10/20 09/10/20 Range/Units 17:01 17: 17:01 WBC 7.0 (3.8-10.6) k/uL RBC 4.76 (4.30-5.90) m/uL Hgb 15.2 (13.0-17.5) gm/dL Hct 43.2 (39.0-53.0) % MCV 90.7 (80.0-100.0) fL MCH 31.9 (25.0-35.0) pg MCHC 35.1 (31.0-37.0) g/dL RDW 13.6 (11.5-15.5) % Plt Count 253 (150-450) k/uL MPV 7.4 Neutrophils % 75 % Lymphocytes % 17 % Monocytes % 6 % Eosinophils % 1 % Basophils % 0 % Neutrophils # 5.3 (1.3-7.7) k/uL Lymphocytes # 1.2 (1.0-4.8) k/uL Monocytes # 0.4 (0-1.0) k/uL Eosinophils # 0.1 (0-0.7) k/uL Basophils # 0.0 (0-0.2) k/uL PT 10.5 (9.0-12.0) sec INR 1.0 (<1.2) APTT 18.6 L (22.0-30.0) sec Sodium (137-145) mmol/L Potassium (3.5-5.1) mmol/L Chloride (98-107) mmol/L Carbon Dioxide (22-30) mmol/L Anion Gap mmol/L BUN (9-20) mg/dL Creatinine (0.66-1.25) mg/dL Est GFR (CKD-EPI)AfAm (>60 ml/min/1.73 sqM) Est GFR (CKD-EPI)NonAf (>60 ml/min/1.73 sqM) Glucose (74-99) mg/dL Calcium (8.4-10.2) mg/dL Magnesium (1.6-2.3) mg/dL Total Bilirubin (0.2-1.3) mg/dL AST (17-59) U/L ALT (4-49) U/L Alkaline Phosphatase (38-126) U/L Troponin I (0.000-0.034) ng/mL Total Protein (6.3-8.2) g/dL Albumin (3.5-5.0) g/dL Urine Color Yellow Urine Appearance Clear (Clear) Urine pH 5.5 (5.0-8.0) Ur Specific [place] 1.013 (1.001-1.035) Urine Protein Negative (Negative) Urine Glucose (UA) Negative (Negative) Urine Ketones Negative (Negative) Urine Blood Negative (Negative) Urine Nitrite Negative (Negative) Urine Bilirubin Negative (Negative) Urine Urobilinogen <2.0 (<2.0) mg/dL Ur Leukocyte Esterase Negative (Negative) 09/10/20 09/10/20 Range/Units 17:01 17:01 WBC (3.8-10.6) k/uL RBC (4.30-5.90) m/uL Hgb (13.0-17.5) gm/dL Hct (39.0-53.0) % MCV (80.0-100.0) fL MCH (25.0-35.0) pg MCHC (31.0-37.0) g/dL RDW (11.5-15.5) % Plt Count (150-450) k/uL MPV Neutrophils % % Lymphocytes % % Monocytes % % Eosinophils % % Basophils % % Neutrophils # (1.3-7.7) k/uL Lymphocytes # (1.0-4.8) k/uL Monocytes # (0-1.0) k/uL Eosinophils # (0-0.7) k/uL Basophils # (0-0.2) k/uL PT (9.0-12.0) sec INR (<1.2) APTT (22.0-30.0) sec Sodium 137 (137-145) mmol/L Potassium 5.2 H (3.5-5.1) mmol/L Chloride 104 (98-107) mmol/L Carbon Dioxide 22 (22-30) mmol/L Anion Gap 11 mmol/L BUN 19 (9-20) mg/dL Creatinine 1.35 H (0.66-1.25) mg/dL Est GFR (CKD-EPI)AfAm 65 (>60 ml/min/1.73 sqM) Est GFR (CKD-EPI)NonAf 56 (>60 ml/min/1.73 sqM) Glucose 95 (74-99) mg/dL Calcium 10.2 (8.4-10.2) mg/dL Magnesium 2.1 (1.6-2.3) mg/dL Total Bilirubin 0.7 (0.2-1.3) mg/dL AST 31 (17-59) U/L ALT 19 (4-49) U/L Alkaline Phosphatase 59 (38-126) U/L Troponin I <0.012 (0.000-0.034) ng/mL Total Protein 7.7 (6.3-8.2) g/dL Albumin 4.9 (3.5-5.0) g/dL Urine Color Urine Appearance (Clear) Urine pH (5.0-8.0) Ur Specific [place] (1.001-1.035) Urine Protein (Negative) Urine Glucose (UA) (Negative) Urine Ketones (Negative) Urine Blood (Negative) Urine Nitrite (Negative) Urine Bilirubin (Negative) Urine Urobilinogen (<2.0) mg/dL Ur Leukocyte Esterase (Negative) Disposition Clinical Impression: Unsteady gait, Unable to ambulate Disposition: ADMITTED IP TO THIS [facility] Condition: Stable Is patient prescribed a controlled substance at d/c from ED?: No Referrals: Reuben Cameron [Primary Care Provider] - 1-2 days Decision to Admit Reason: Admit from EC Decision Date: 09/10/20 Decision Time: 19:03
[2020-09-10 17:53] LABS: Albumin 4.9 g/dL (3.5-5.0); Calcium 10.2 mg/dL (8.4-10.2); Magnesium 2.1 mg/dL (1.6-2.3); Total Bilirubin 0.7 mg/dL (0.2-1.3); Total Protein 7.7 g/dL (6.3-8.2)
[2020-09-10 17:55] LABS: Prothrombin Time 10.5 sec (9.0-12.0)
[2020-09-10 18:06] LABS: Potassium 5.2 mmol/L (3.5-5.1)
--- NOTE | 2020-09-10 18:09 | XR ---
EXAMINATION TYPE: XR chest 2V DATE OF EXAM: 09/10/2020 COMPARISON: 08/29/2020 HISTORY: Syncope TECHNIQUE: FINDINGS: Heart is normal. Lungs are clear of infiltrate. There are chest leads. Costophrenic angles are clear. There is some osteopenia. There is 25% wedging of T7 vertebra. IMPRESSION: No active cardiopulmonary disease. No change compared to recent exam.
[2020-09-10 18:24] LABS: Partial Thromboplastin Time 18.6 sec (22.0-30.0)
[2020-09-10 18:58] LABS: Appearance,Urine Clear (Clear); Bilirubin,Urine Negative (Negative); Blood,Urine Negative (Negative); Color,Urine Yellow; Glucose,Urine (UA) Negative (Negative); Ketones,Urine Negative (Negative); Leukocyte Esterase,Urine Negative (Negative); Nitrite,Urine Negative (Negative); PH, Urine 5.5 (5.0-8.0); Protein,Urine Negative (Negative); Specific Gravity,Urine 1.013 (1.001-1.035); Urobilinogen,Urine <2.0 mg/dL (<2.0)
[2020-09-10] MEDS ORDERED: NALOXONE 0.4 MG/ML 1 ML VIAL IV PRN (19:00)
[2020-09-10] MEDS: SODIUM CHLORIDE 0.9% 1,000 ML IV SCH (19:19)
--- NOTE | 2020-09-10 22:03 | P.HPIM ---
History of Present Illness H&P Date: 09/10/20 The patient is a 60-year-old male with a PMH of hypertension, hyperlipidemia, GERD, anxiety, and bipolar disorder who presented to the emergency room with complaints of unsteady gait and tremors. The patient's history was inconsistent as he initially reports that his symptoms started on Friday 09/08, and gradually worsened. He reports walking with small steps and feeling as though he is going to fall. Also reports resting and intention tremors of bilateral upper extremities and feeling anxious. He then reports that his symptoms may have started a week ago for which he was seen at his psychiatrist on Wednesday 09/06, and was started on quetiapine. The patient then goes on to state that his a ppointment may have been his regular one-month follow-up with his psychiatrist and that his symptoms could have started after he started the quetiapine. The patient reports a long-standing history of anxiety but reports that he had a similar attack of unsteady gait and tremors back when he was a teenager for which she was told it was an anxiety attack. He denied visual disturbances, headache, weakness, numbness, tingling. Also denied chest pain, shortness of breath, fever, chills, cough. Denied nausea, vomiting, abdominal pain, diarrhea. In the emergency room, CT brain revealed atrophy but otherwise unremarkable. Chest x-ray was also unremarkable. EKG revealed normal sinus rhythm at 72 bpm with T-wave inversions in leads V2 to V3. Laboratory evaluation was remarkable for potassium of 5.2 in a hemolyzed specimen, creatinine 1.35 up from a baseline of 1.1, unremarkable UA, and a negative coronavirus PCR. Review of systems: Pertinent positives and negatives as discussed in HPI, a complete review of systems was performed and all other systems are negative. Physical examination: General: non toxic, no distress, appears at stated age, normal weight Derm: no unusual rashes/lesions no unusual ecchymoses, warm, dry Head: atraumatic, normocephalic, symmetric Eyes: EOMI, no lid lag, anicteric sclera, pupils equal round reactive to light ENT: Nose and ears atraumatic, no thrush, no pharyngeal erythema Neck: No thyromegaly, no cervical lymphadenopathy, trachea midline, supple Mouth: no lip lesion, mucus membranes moist Cardiovascular: S1S2 reg, no murmur, positive posterior tibial pulse bilateral, no edema, capillary refill less than 2 seconds Lungs: CTA bilateral, no rhonchi, no rales , no accessory muscle use Abdominal: soft, nontender to palpation, no guarding, no appreciable organomegaly, normal bowel sounds Ext: no gross muscle atrophy, muscle strength 5 out of 5 in all 4 extremities grossly, no contractures, Neuro: CN II-XI grossly intact, light touch intact all 4 extremities, finger to nose within normal limits with no past pointing, mild bilateral hand resting tremor noted with minimal intention tremor, shuffling gait noted, mild cogwheel rigidity in bilateral upper extremities, masked facies noted Psych: Alert, oriented, appropriate affect Assessment/plan Unsteady gait, bilateral tremors - suspected extrapyramidal symptoms in setting of concomitant Seroquel and Abilify use -Patient started Seroquel 2 days prior to onset of symptoms -Fall precautions -Hold both above medications -Psychiatry consult HAILEY -C/w gentle hydration and monitor BMP Chronic conditions: HTN, HLD, GERD -C/w Home meds DVT prophylaxis -Heparin subq The patient is admitted with an anticipated less than 2 midnight stay for evaluation of abnormal gait CODE STATUS: Full Code Discussed with: Patient Anticipated discharge date: in am Anticipated discharge place: Home A total of 35 minutes was spent on the care of this complex patient more than 50% of the time was spent in counseling and care coordination. Past Medical History Past Medical History: Eye Disorder, GI Bleed, Hypertension Additional Past Medical History / Comment(s): chronic back pain; Perforated bowel History of Any Multi-Drug Resistant Organisms: None Reported Past Surgical History: Bowel Resection, Joint Replacement, Orthopedic Surgery Additional Past Surgical History / Comment(s): left hip, right hip compound fracture,PAIN CLINIC PROCEDURE, SX FOR PERFORATED BOWEL Past Anesthesia/Blood Transfusion Reactions: No Reported Reaction Past Psychological History: Anxiety, Bipolar, Depression Smoking Status: Current every day smoker Past Alcohol Use History: None Reported Past Drug Use History: None Reported - Past Family History Mother Family Medical History: No Reported History Additional Family Medical History / Comment(s): Mother of pneumonia in her 70s. Father Family Medical History: Liver Disease Additional Family Medical History / Comment(s): Father is . He had live r cirrhosis/ETOH Medications and Allergies Home Medications Medication Instructions Recorded Confirmed Type Pantoprazole [Protonix] 40 mg PO DAILY #30 tablet. 04/09/16 09/10/20 Rx diphenhydrAMINE [Benadryl] 50 mg PO HS 09/25/17 09/10/20 History lamoTRIgine [LaMICtal] 200 mg PO DAILY 09/25/17 09/10/20 History ARIPiprazole [Abilify Maintena] 300 mg PO Q30D 08/29/20 09/10/20 History Atorvastatin [Lipitor] 10 mg PO DAILY 08/29/20 09/10/20 History Gabapentin 800 mg PO BID 08/29/20 09/10/20 History Losartan [Cozaar] 50 mg PO DAILY 08/29/20 09/10/20 History Metoprolol Succinate (ER) [Toprol 50 mg PO DAILY 08/29/20 09/10/20 History XL] Venlafaxine HCl ER [Effexor XR] 150 mg PO DAILY 08/29/20 09/10/20 History traZODone HCL 50 mg PO HS 08/29/20 09/10/20 History Meloxicam 15 mg PO DAILY 09/10/20 09/10/20 History QUEtiapine [SEROquel] 25 mg PO BID 09/10/20 09/10/20 History amLODIPine [Norvasc] 5 mg PO DAILY 09/10/20 09/10/20 History Allergies Allergy/AdvReac Type Severity Reaction Status Date / Time No Known Allergies Allergy Verified 09/10/20 17:30 Physical Exam Vitals: Vital Signs Temp Pulse Resp BP Pulse Ox 09/10/20 18:28 78 18 161/82 99 09/10/20 15:04 99.1 F 98 18 144/90 97 Intake and Output 09/10/20 09/10/20 09/10/20 06:59 14:59 22:59 Other: Weight 81.647 kg Results CBC & Chem 7: 09/10/20 17:01 09/10/20 17:01 Labs: Abnormal Lab Results - Last 24 Hours (Table) 09/10/20 09/10/20 Range/Units 17:01 17:01 APTT 18.6 L (22.0-30.0) sec Potassium 5.2 H (3.5-5.1) mmol/L Creatinine 1.35 H (0.66-1.25) mg/dL
[2020-09-10] MEDS: LORazepam 1 MG TAB PO PRN (22:29)
[2020-09-10] MEDS: ACETAMINOPHEN TAB 325 MG TAB PO PRN (23:29)
[2020-09-11] MEDS: ACETAMINOPHEN TAB 325 MG TAB PO PRN ×3 (05:44→21:20)
[2020-09-11] MEDS: METOPROLOL SUCCINATE (ER) 50 MG TAB.ER.24H PO SCH (08:25)
[2020-09-11] MEDS: lamoTRIgine 100 MG TAB PO SCH (08:25)
[2020-09-11] MEDS: PANTOPRAZOLE 40 MG TABLET PO SCH (08:25)
[2020-09-11] MEDS: ATORVASTATIN 10 MG TAB PO SCH (08:25)
[2020-09-11] MEDS: amLODIPine 5 MG TAB PO SCH (08:25)
[2020-09-11] MEDS: LORazepam 1 MG TAB PO PRN ×2 (09:45→21:20)
[2020-09-11] MEDS: SODIUM CHLORIDE 0.9% 1,000 ML IV SCH ×2 (09:46→18:06)
--- NOTE | 2020-09-11 09:58 | P.CNNES ---
History of Present Illness Consult date: 09/11/20 Requesting physician: Jewel Shaikh Reason for Consult: generalized weakness, tremor, gait instability History of Present Illness: This is a 60-year-old gentleman with medical history of hypertension, hyperlipidemia, GERD, anxiety and bipolar presented emergency department on 09/10/2020 for unsteady gait and tremors as well as generalized weakness since 09/06/2020. According to the patient he came to the hospital because of the worsening of his anxiety upon asking him. Then upon asking him regarding his unsteady gait, generalized weakness he states that he's been having that since this past Friday which was a 09/06/2020 as well as a feeling dizzy. He stated that he has significant psych problem as an anxiety and bipolar and he sees a psychiatrist and he was recently started on Seroquel. He said after being started on Seroquel he felt like his whole body was weak. Patient denies any focal weakness, denies any numbness, denies any visual disturbance that is new recently. He denies of any difficulty getting his words out, swallowing. He said that he has chronic posterior entire neck pain that shoots down the old but denies any shooting down into the arms or hands he said he has arthritis. Initially he stated that he had chronic lower back pain then later he said he doesn't have any lower back pain. He denies any urinary or bowel incontinence. He feels like his anxiety tremulousness has worsened since the him being on Seroquel. He denies any history of stroke. Patient the gave inconsistent history to the primary team in which he stated that his symptoms began 09/08/2020 then later he said 09/06/2020 then later he stated that the symptoms began about a month ago. For me stated that his symptoms started on 09/06/2020. Some of the home medications includes Benadryl, trazodone, amlodipine, Effexor, quetiapine, Protonix, metoprolol, Lamictal 200 mg daily, losartan, gabapentin 800 mg 1 tablet twice a day, Lipitor 10 mg daily, Abilify 300mg [id number]. Some other workup in the hospital consisted of: Initial vitals: Blood pressure of 144/90, heart rate of 98, respiratory of 18, temperature of 99.1 Fahrenheit oral and pulse ox of 97 percent at room air. CT of the head is reported as cerebral atrophy. No acute intracranial abnormality. EKG is reported as normal sinus rhythm. T wave abnormality, consider anterior ischemia. Abnormal EKG. The CBC seems unremarkable. The chemistry panel shows that the potassium is 5.2 which is slight hemolysis. Creatinine is 1.35 was slightly elevated at. Otherwise the rest of the the chemistry panel is unremarkable. Review of Systems Review of system: The 12 point system was reviewed and apparent positive and negative per HPI. Past Medical History Past Medical History: Eye Disorder, GI Bleed, Hypertension Additional Past Medical History / Comment(s): chronic back pain; Perforated bowel History of Any Multi-Drug Resistant Organisms: None Reported Past Surgical History: Bowel Resection, Joint Replacement, Orthopedic Surgery Additional Past Surgical History / Comment(s): left hip, right hip compound fracture,PAIN CLINIC PROCEDURE, SX FOR PERFORATED BOWEL Past Anesthesia/Blood Transfusion Reactions: No Reported Reaction Past Psychological History: Anxiety, Bipolar, Depression Smoking Status: Current every day smoker Past Alcohol Use History: None Reported Past Drug Use History: None Reported - Past Family History Mother Family Medical History: No Reported History Additional Family Medical History / Comment(s): Mother of pneumonia in her 70s. Father Family Medical History: Liver Disease Additional Family Medical History / Comment(s): Father is . He had liver cirrhosis/ETOH Medications and Allergies Home Medications Medication Instructions Recorded Confirmed Type Pantoprazole [Protonix] 40 mg PO DAILY #30 tablet. 04/09/16 09/10/20 Rx diphenhydrAMINE [Benadryl] 50 mg PO HS 09/25/17 09/10/20 History lamoTRIgine [LaMICtal] 200 mg PO DAILY 09/25/17 09/10/20 History ARIPiprazole [Abilify Maintena] 300 mg PO Q30D 08/29/20 09/10/20 History Atorvastatin [Lipitor] 10 mg PO DAILY 08/29/20 09/10/20 History Gabapentin 800 mg PO BID 08/29/20 09/10/20 History Losartan [Cozaar] 50 mg PO DAILY 08/29/20 09/10/20 History Metoprolol Succinate (ER) [Toprol 50 mg PO DAILY 08/29/20 09/10/20 History XL] Venlafaxine HCl ER [Effexor XR] 150 mg PO DAILY 08/29/20 09/10/20 History traZODone HCL 50 mg PO HS 08/29/20 09/10/20 History Meloxicam 15 mg PO DAILY 09/10/20 09/10/20 History QUEtiapine [SEROquel] 25 mg PO BID 09/10/20 09/10/20 History amLODIPine [Norvasc] 5 mg PO DAILY 09/10/20 09/10/20 History Allergies Allergy/AdvReac Type Severity Reaction Status Date / Time No Known Allergies Allergy Verified 09/10/20 17:30 Physical Examination - Vital Signs Vital Signs: Vital Signs Temp Pulse Resp BP Pulse Ox 09/11/20 06:00 56 L 18 138/56 93 L 09/11/20 02:00 58 L 18 136/89 94 L 09/11/20 00:00 60 16 168/98 96 09/10/20 22:29 68 21 09/10/20 21:43 71 20 158/99 97 09/10/20 18:28 78 18 161/82 99 09/10/20 15:04 99.1 F 98 18 144/90 97 Intake and Output 09/10/20 09/11/20 09/11/20 22:59 06:59 14:59 Other: Weight 81.647 kg GENERAL: The patient is lying in bed and is not in acute distress. CHEST: The heart rate is regular rate rhythm. No murmurs to auscultation. No carotid bruit bilaterally. LUNG: Clear to auscultation bilaterally no wheezing noted throughout. Not labored breathing. ABDOMEN/GI: Bowel sounds present in all 4 quadrants. No tenderness to palpation throughout. Psych: Seem very anxious. NEUROLOGICAL: Higher mental function: The patient is awake, alert, oriented to self, place and time. Patient is following commands. No aphasia and no neglect. Cranial nerves: The pupils are round, equal and reactive to light and accommoda tion. Visual weinberg are full to confrontation throughout. Extraocular movement is intact no nystagmus is noted. Facial sensation is normal to touch throughout. The facial strength is normal throughout. Hearing is normal bilaterally to hand rub. Tongue is midline and moved [id number] without any difficulty. No dysarthria is noted. Shoulder shrug is normal bilaterally. Motor: Gait is taking cautions steps but otherwise normal with normal arms swings. The strength is 5 over 5 throughout. Normal tone and bulk. Had tremor of extending both hands out (shaking side to side). No resting tremor. Cerebellum: Normal finger to nose bilaterally. Sensation: Sensation is normal to touch throughout. Reflexes (right/left): 3+ throughout except ankles are 2+ bilaterally. Negative Kemp. Plantars are mute bilaterally (few time I felt questionable upgoing but with repetition twice it was mute). Results Urinalysis is negative for urinary tract infection. Nieves virus was not detected. - Laboratory Findings CBC and BMP: 09/10/20 17:01 09/10/20 17:01 Abnormal Lab Findings: Abnormal Labs 09/10/20 09/10/20 17: 17: APTT 18.6 L Potassium 5.2 H Creatinine 1.35 H Assessment and Plan Assessment: * Generalized weakness, unsteady gait and tremors and feeling dizziness since 09/08/2020 seems due to medication effect (on polypharmacy from [facility] psychiatric drugs and per patient was started after starting Seroquel. Seroquel can cause agitation, dizziness). Rule out stroke which is low on the differential. * Reported worsening of Anxiety * Acute kidney insufficiency * Hypertension * Hyperlipidemia * Bipolar Plan: * CT of the head is reported as cerebral atrophy. No acute intracranial abnormality. * I ordered MRI Brain and Cervical spine. * I ordered TSH, vitamin B12 and folate level. * Consulted physical and occupation therapy * Consulted psychiatry team, especially since the patient is multiple psychiatric drugs and him stating his anxiety is worsened. * We'll defer the rest of the workup to the primary team. The plan is discussed with the patient's nurse. Thank you for the consultation Abisai Self MD Neuro-Hospitalist Time with Patient: Greater than 30
--- NOTE | 2020-09-11 13:38 | P.PN ---
Subjective Progress Note Date: 09/11/20 Patient is doing fairly well today. He was eating his lunch when I saw him. He denies any complaint at this time. He is scheduled for MRI of the cervical spine later on. Objective - Vital Signs Vital signs: Vital Signs Temp 97.6 F 09/11/20 12:48 Pulse 58 L 09/11/20 12:48 Resp 14 09/11/20 12:48 BP 135/78 09/11/20 12:48 Pulse Ox 97 09/11/20 12:48 Intake & Output 09/10/20 09/11/20 09/11/20 18:59 06:59 18:59 Weight 81.647 kg 81.647 kg - Exam General: The patient is awake and alert, in no distress Eye: there is normal conjunctiva bilaterally. Neck: The neck is supple, there is no JVD. Cardiovascular: Normal S1-S2, no S3-S4, no murmurs. Respiratory: Lungs clear to auscultation bilaterally Gastrointestinal: Abdomen is soft, nontender Musculoskeletal: There is no pedal edema. Neurological:. Speech is normal. Skin: Skin is warm and dry - Labs CBC & Chem 7: 09/10/20 17:01 09/10/20 17:01 Labs: Abnormal Lab Results - Last 24 Hours (Table) 09/10/20 09/10/20 Range/Units 17:01 17:01 APTT 18.6 L (22.0-30.0) sec Potassium 5.2 H (3.5-5.1) mmol/L Creatinine 1.35 H (0.66-1.25) mg/dL Assessment and Plan Assessment: This is a 60-year-old male with past medical history noted below that presented to the emergency room with unsteady gait and tremor. Patient was evaluated in the ER and admitted to the hospital for further management of his medical problems noted below. 1. Generalized weakness with unsteady gait and tremors, may be attributed to polypharmacy. Multiple psychiatric medication was discontinued. Awaiting psychiatry evaluation. Patient was seen and evaluated by neurology. MRI of the brain and cervical spine ordered. I would also check creatinine kinase 2. Acute kidney injury, hold nephrotoxic sent continue IV fluid hydration. Repeat lab work in the morning. 3. Underlying anxiety and bipolar disorder 4. Chronic medical problems: Hypertension, hyperlipidemia, GERD, 5. DVT prophylaxis with subcu Lovenox Today, I reviewed his medication list and lab work results. Continue current management. Repeat lab work in the morning. PT/OT evaluation.
[2020-09-11] MEDS: ENOXAPARIN 40 MG/0.4 ML SYRINGE SQ SCH (13:56)
--- NOTE | 2020-09-11 15:43 | P.CN ---
Psychiatric Consult - . Consult date: 09/11/20 Consult:: 09/11/20 15:42 Buckle Inspector attempted to see patient today for psychiatric consultation for anxiety and being on multiple psychiatric medications. EMR was reviewed and patient has had his symptoms including dizziness lightheadedness and problems ambulating for several weeks now. CT & UA has been negative. Patient has been seen by neurology and was in MRI at the time that writer technical publications went to go see patient. We'll attempt to see patient tomorrow for evaluation.
--- NOTE | 2020-09-11 15:52 | MR ---
EXAMINATION TYPE: MR brain/cspine wo DATE OF EXAM: 09/11/2020 COMPARISON: CT brain from yesterday and older CTs HISTORY: Dizziness, unsteady gait. Neck pain. TECHNIQUE: Multiplanar, multisequence imaging of the brain and brainstem and cervical spine are all p erformed without IV contrast. FINDINGS: Brain: Diffusion weighted images demonstrate no evidence of a recent infarct or other diffusion abnormality. There is mild to moderate ventricular and sulcal prominence. No significant white matter changes.. Midline structures redemonstrates somewhat empty sella morphology. The craniocervical junction appea rs within normal limits. Normal vascular flow voids are present. Persistent patchy fluid signal throu ghout the ethmoid sinuses bilaterally. Nasal septum redemonstrated deviated to left of midline. Mild mucosal thickening bilateral frontal sinuses. Globes are intact bilaterally. IMPRESSION: No MRI evidence for recent infarct. [id number] diffuse cerebral atrophy redemonstra steve. MRI CERVICAL SPINE: FINDINGS: Sagittal images of the cervical spine show the craniocervical junction to appear within nor mal limits. The cervical and upper thoracic spinal cord is normal in caliber and signal. Levoconvex scoliotic curvature or positioning centered upper thoracic spine is noted. Mild disc space narrowing C6-C7 level otherwise The vertebral body and intravertebral disk heights are normal. The bone marro w signal intensity is within normal limits. Axial images at C2-C3 level show some uncovertebral facet degenerative changes bilaterally. Patent bi lateral neural foramina. Axial images at C3-C4 level show uncovertebral facet degenerative changes bilaterally causing mild bi lateral neural foraminal narrowing. Axial images at C4-C5 level show uncovertebral facet degenerative changes bilaterally with patent ana maría ateral neural foramina. Axial images at C5-C6 level show uncovertebral facet degenerative changes bilaterally causing mild le ft-sided neural foraminal narrowing. Axial images at C6-C7 level show marginal spur disc complex causing moderate left and mild right-side d neural foraminal narrowing. Axial images at C7-T1 level appear within normal limits. IMPRESSION: Multilevel mild degenerative changes in cervical spine as detailed above.
[2020-09-11] MEDS ORDERED: traZODone HCL 50 MG TAB PO SCH (21:00)
[2020-09-12 05:26] LABS: African American GFR (CKD) 77 (>60 ml/min/1.73 sqM); Anion Gap 4 mmol/L; Blood Urea Nitrogen 17 mg/dL (9-20); Calcium 9.3 mg/dL (8.4-10.2); Carbon Dioxide 29 mmol/L (22-30); Chloride 105 mmol/L (98-107); Glucose 87 mg/dL (74-99); Non-African American GFR(CKD) 66 (>60 ml/min/1.73 sqM); Potassium 4.6 mmol/L (3.5-5.1); Sodium 138 mmol/L (137-145)
[2020-09-12] MEDS: SODIUM CHLORIDE 0.9% 1,000 ML IV SCH (07:38)
[2020-09-12] MEDS: PANTOPRAZOLE 40 MG TABLET PO SCH (07:40)
[2020-09-12] MEDS: ATORVASTATIN 10 MG TAB PO SCH (07:40)
[2020-09-12] MEDS: lamoTRIgine 100 MG TAB PO SCH (07:40)
[2020-09-12] MEDS: ENOXAPARIN 40 MG/0.4 ML SYRINGE SQ SCH (07:40)
[2020-09-12] MEDS: METOPROLOL SUCCINATE (ER) 50 MG TAB.ER.24H PO SCH (07:40)
[2020-09-12] MEDS: LORazepam 1 MG TAB PO PRN (07:47)
[2020-09-12] MEDS: amLODIPine 5 MG TAB PO SCH (08:11)
[2020-09-12] MEDS ORDERED: amLODIPine 5 MG TAB PO SCH ×2 (09:00→21:00)
[2020-09-12] MEDS ORDERED: CYANOCOBALAMIN 1,000 MCG/ML 1 ML VIAL IM SCH (09:00)
[2020-09-12] MEDS: ACETAMINOPHEN TAB 325 MG TAB PO PRN (10:02)
[2020-09-12 11:01] VITALS: BP 131/80; PULSE 52; RESP 20; TEMP 98.1
--- NOTE | 2020-09-12 13:07 | P.PN ---
Subjective Progress Note Date: 09/12/20 Patient was seen at bedside he feels about the same today compared to yesterday. Denies any new focal weakness, numbness, visual disturbance, difficulty swallowing or getting his words out. MR the brain is reported as no MRI evidence for recent infarct. Mild to moderate diffuse cerebral atrophy redemonstrated. Next MRI of the cervical spine is reported as multilevel mild degenerative changes in the cervical spine. TSH 2.48 which is normal. Vitamin B12 is 179 which is low normal has to be between 200 to 944. Folate stated that was canceled not sure what was the reason. Objective - Vital Signs Vital signs: Vital Signs Temp 98.1 F 09/12/20 11:00 Pulse 52 L 09/12/20 11:00 Resp 20 09/12/20 11:00 BP 131/80 09/12/20 11:00 Pulse Ox 94 L 09/12/20 11:00 Intake & Output 09/11/20 09/12/20 09/12/20 18:59 06:59 18:59 Intake Total 1140 120 Output Total 1300 550 Balance -160 -430 Weight 81.647 kg Intake: Intake, IV Titration 900 Amount Sodium Chloride 0.9% 1, 900 000 ml @ 75 mls/hr IV . [id number] TIEN Rx#:[id number] Oral 240 120 Output: Urine 1300 550 Other: # Voids 1 - Exam GENERAL: The patient is lying in bed and is not in acute distress. Psych: Seem very anxious. NEUROLOGICAL: Higher mental function: The patient is awake, alert, oriented to self, place and time. Patient is following commands. No aphasia and no neglect. Cranial nerves: The pupils are round, equal and reactive to light and accommodation. Visual weinberg are full to confrontation throughout. Extraocular movement is intact no nystagmus is noted. Facial sensation is normal to touch throughout. The facial strength is normal throughout. Hearing is normal bilaterally to hand rub. Tongue is midline and moved [id number] without any difficulty. No dysarthria is noted. Shoulder shrug is normal bilaterally. Motor: Gait is taking cautions steps but otherwise normal with normal arms swings. The strength is 5 over 5 throughout. Normal tone and bulk. Had tremor of extending both hands out (shaking side to side). No resting tremor. Cerebellum: Normal finger to nose bilaterally. Sensation: Sensation is normal to touch throughout. Reflexes (right/left): 3+ throughout except ankles are 2+ bilaterally. Negative Kemp. Plantars are mute bilaterally (few time I felt questionable upgoing but with re petition twice it was mute). - Labs CBC & Chem 7: 09/10/20 17:01 09/12/20 04:33 Labs: Abnormal Lab Results - Last 24 Hours (Table) 09/11/20 Range/Units 08:30 Vitamin B12 179.0 L (200.0-944.0) pg/mL Assessment and Plan Assessment: * Generalized weakness, unsteady gait and tremors and feeling dizziness since 09/08/2020 seems due to medication effect ([facility] and per patient was started after starting Seroquel. Sero quel can cause agitation, dizziness). Also his symptoms could be due to Vitamin B12 deficiency. * Vitamin B12 deficiency (level 179) * Reported worsening of Anxiety * Acute kidney insufficiency * Hypertension * Hyperlipidemia * Bipolar Plan: * CT of the head is reported as cerebral atrophy. No acute intracranial abnormality. * MR the brain is reported as no MRI evidence for recent infarct. Mild to moderate diffuse cerebral atrophy redemonstrated. Next * MRI of the cervical spine is reported as multilevel mild degenerative changes in the cervical spine. * TSH 2.48 which is normal. * Vitamin B12 is 179 which is low normal has to be between 200 to 944. Patient was started on vitamin B-12 1000 g IM daily and I would recommend for IM for 3 days then after that by mouth daily. * I ordered gastric parietal cells antibody * Folate stated that was canceled not sure what was the reason. We'll try to get a repeat folate level. * Consulted physical and occupation therapy * Consulted psychiatry team, especially since the patient is multiple psychiatric drugs and him stating his anxiety is worsened. * We'll defer the rest of the workup to the primary team. The plan is discussed with the patient's nurse. There is no further neurological work-up. Abisai Self MD Neuro-Hospitalist Time with Patient: Less than 30
[2020-09-12] MEDS ORDERED: VENLAFAXINE HCL ER 150 MG CAP PO SCH (13:30)
--- NOTE | 2020-09-12 13:33 | P.CN ---
Psychiatric Consult - . Consult date: 09/12/20 Consult:: 09/12/20 13:25 IDENTIFYING DATA: This patient is a 60-year-old male who currently lives with his sister in a house has no kids is and currently collects Social Security disability. REASON FOR REFERRAL: Psychiatry was consulted for multiple psychiatric medications and worsening anxiety. HISTORY OF PRESENT ILLNESS: The patient presented to the hospital and presented to the ED with complaints of dizziness and lightheadedness and problems ambulating for about a week. Patient had a computed tomography scan which was negative urinalysis which was negative. MRI was ordered by neurology which showed multilevel mild degenerative changes. Patient's home medications were Benadryl 50 mg daily at bedtime, trazodone 50 mg daily at bedtime, Effexor 150 mg daily, Seroquel 25 mg twice a day, Lamictal 200 mg daily, Abilify Maintenna 300 mg monthly which have been prescribed by her psychiatrist. Patient claims that the Seroquel is the newest medication that has been prescribed to him and has been taking it for the past week and claims that it coincides with him developing the symptoms and dizziness. He states that his anxiety has been chronic and has been getting worse since being in the hospital. He was fairly fixated on benzodiazepines, Ativan and Xanax. He claims that he used to abuse Xanax in the past. He states that his mood is "okay" and is denying any paranoia. He claims that his sleep has been poor as the trazodone usually helps him. He claims that his appetite is fair. At this time patient denies any suicidal or homical ideations, intent or plan. Patient denies any auditory, visual hallucinations and denies any paranoia or delusions. Patients admits to using cigarettes daily however denies any other recreational drug use. PAST PSYCHIATRIC HISTORY: Patient has a a history of anxiety and depression. Patient is on several different psychiatric medications as listed above in the HPI. Patient denies any previous psychiatric hospitalizations. Patient claims that he pulls up monthly with his outpatient psychiatrist Dr. Choi. He states that he has been seeing his psychiatrist for the past 3 years. Patient denies any history of suicide attempts in the past. PAST MEDICAL HISTORY: denies. ALLERGIES: as per EMR. CHEMICAL DEPENDENCY HISTORY: as per HPI. FAMILY PSYCHIATRIC/SUBSTANCE USE HISTORY: denies SOCIAL HISTORY: Patient was born and raised in [facility]. He states that he completed up to the 12th grade of school and dropped out. 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 He denies any history of imprisonment in the past. He claims that he currently lives with his sister in a house has no kids and is . He claims that he collects SSD. MENTAL STATUS EXAM: General Appearance: Patient appears to be stated age is alert, pleasant, and attempts to be cooperative. Patient appears to have fair hygiene and grooming wearing hospital gown with fair eye contact. Behavior: Patient is calmly lying in bed without any agitated behavior. Appears to be anxious at times. Speech: Patient's speech is fluent and nonpressured. Mood/Affect: Patient reports their mood is "anxious", affect is congruent Suicidality/Homicidality: Patient denies having any suicidal or homicidal ideation intent or plan. Perceptions: Patient denies any visual hallucinations and denies any auditory hallucinations Though content/process: There is no evidence of any delusional thought content and thought process is linear and goal-directed. Focused on his medications. Memory and concentration: AOX3, grossly intact for the purposes of this session. Can spell "WORLD" backwards Judgment and insight: fair IMPRESSIONS: Depressive disorder unspecified Generalized anxiety disorder Nicotine dependence PLAN: -At this time patient DOES NOT meet criteria for inpatient psychiatric admission. -Would recommend the following medication changes/additions: Restarted Effexor 150 mg daily for mood/anxiety. Increased trazodone to 100 mg daily at bedtime for insomnia/mood. started BuSpar 15 mg 3 times a day for anxiety. Continue Lamictal 200 mg daily for mood stabilization. -Communicated plan to patient's nurse -Will continue to follow along -Please contact with any questions.
--- NOTE | 2020-09-12 14:17 | P.DS ---
Providers Date of admission: 09/10/20 19:01 Expected date of discharge: 09/12/20 Attending physician: Fili Hua MD Consults: 09/10/20 19:00 Consult Physician Routine Consulting Provider: Abisai Self Consult Reason/Comments: Generalized weakness, tremor, gait instability Do you want consulting provider notified?: Yes 09/11/20 09:09 Consult Physician Routine Consulting Provider: Curtis Holloway Consult Reason/Comments: worsening anxiety and multiple psych meds Do you want consulting provider notified?: Yes Primary care physician: [facility] Course: This is a 60-year-old male with past medical history noted below that presented to the emergency room with unsteady gait and tremor. Patient was evaluated in the ER and admitted to the hospital for further management of his medical problems noted below. 1. Generalized weakness with unsteady gait and tremors, may be attributed to polypharmacy. Symptoms improved significantly. Patient was seen and evaluated by neurology. MRI of the brain and cervical spine showed no acute findings. Only chronic DJD. creatinine kinase within normal range 2. Acute kidney injury, resolved with IV fluid hydration 3. Underlying anxiety and bipolar disorder: Seen and evaluated by psychiatry. His regimen was adjusted. 4. Chronic medical problems: Hypertension, hyperlipidemia, GERD, Patient was seen and evaluated by PT/OT. He was cleared for discharge home. He will be discharged home in a stable condition. He was advised to follow-up with his psychiatrist as directed. Patient Condition at Discharge: Stable Plan - Discharge Summary Discharge Rx Participant: No New Discharge Prescriptions: New busPIRone HCl [Buspar] 15 mg PO TID #90 tab traZODone HCL [Desyrel] 100 mg PO HS #30 tab Cyanocobalamin (Vitamin B-12) [Vitamin B-12] 2,000 mcg PO DAILY #30 tablet.er Continue Pantoprazole [Protonix] 40 mg PO DAILY #30 tablet. lamoTRIgine [LaMICtal] 200 mg PO DAILY Atorvastatin [Lipitor] 10 mg PO DAILY Metoprolol Succinate (ER) [Toprol XL] 50 mg PO DAILY Gabapentin 800 mg PO BID amLODIPine [Norvasc] 5 mg PO DAILY Venlafaxine HCl ER [Effexor XR] 150 mg PO DAILY Losartan [Cozaar] 50 mg PO DAILY Discontinued diphenhydrAMINE [Benadryl] 50 mg PO HS QUEtiapine [SEROquel] 25 mg PO BID Meloxicam 15 mg PO DAILY traZODone HCL 50 mg PO HS ARIPiprazole [Abilify Maintena] 300 mg PO Q30D Discharge Medication List Pantoprazole [Protonix] 40 mg PO DAILY #30 tablet. 04/09/16 [Rx] lamoTRIgine [LaMICtal] 200 mg PO DAILY 09/25/17 [History] Atorvastatin [Lipitor] 10 mg PO DAILY 08/29/20 [History] Gabapentin 800 mg PO BID 08/29/20 [History] Losartan [Cozaar] 50 mg PO DAILY 08/29/20 [History] Metoprolol Succinate (ER) [Toprol XL] 50 mg PO DAILY 08/29/20 [History] Venlafaxine HCl ER [Effexor XR] 150 mg PO DAILY 08/29/20 [History] amLODIPine [Norvasc] 5 mg PO DAILY 09/10/20 [History] Cyanocobalamin (Vitamin B-12) [Vitamin B-12] 2,000 mcg PO DAILY #30 tablet.er 09/12/20 [Rx] busPIRone HCl [Buspar] 15 mg PO TID #90 tab 09/12/20 [Rx] traZODone HCL [Desyrel] 100 mg PO HS #30 tab 09/12/20 [Rx] Follow up Appointment(s)/Referral(s): Reuben Cameron [Primary Care Provider] - 1-2 days Discharge Disposition: HOME SELF-CARE
[2020-09-12] MEDS ORDERED: busPIRone HCl 5 MG TAB PO SCH (16:00)
[2020-09-12] MEDS ORDERED: traZODone HCL 100 MG TAB PO SCH (21:00)
== END 2020-09-12 16:05 | disposition home or self-care (01) ==
LOC: EC 15:02 → 5NMEDONC 19:01
PROVIDERS: ADMIT Internal Medicine; ATTEND Internal Medicine
DX: R53.1 Weakness (principal); R26.2 Difficulty in walking, not elsewhere classified; G25.2 Other specified forms of tremor; Z20.822 Contact with and (suspected) exposure to COVID-19; M19.90 Unspecified osteoarthritis, unspecified site; N17.9 Acute kidney failure, unspecified; I10 Essential (primary) hypertension; E78.5 Hyperlipidemia, unspecified; K21.9 Gastro-esophageal reflux disease without esophagitis; M47.812 Spondylosis without myelopathy or radiculopathy, cervical region; E53.8 Deficiency of other specified B group vitamins; G89.29 Other chronic pain; M54.9 Dorsalgia, unspecified; F41.9 Anxiety disorder, unspecified; F31.9 Bipolar disorder, unspecified; H57.9 Unspecified disorder of eye and adnexa; F17.200 Nicotine dependence, unspecified, uncomplicated; Z79.899 Other long term (current) drug therapy; Z79.1 Long term (current) use of non-steroidal anti-inflammatories (NSAID); Z87.19 Personal history of other diseases of the digestive system; Z87.81 Personal history of (healed) traumatic fracture; Z83.79 Family history of other diseases of the digestive system; Z83.6 Family history of other diseases of the respiratory system
CPT/HCPCS: 96372 ×2; 96360; 96361; 99285; 36415; 93005; 97162; 97166; 80053; 80048; 84443; 82607; 82550; 82746; 83735; 84484; 85025; 85610; 85730; 81003; 83516; 87635; 71046; 70450; 70551; 72141; G0378 ×3; J3420; J1650 ×2

== ENCOUNTER 2021-08-22 12:44 | Emergency (ER) | payer MEDICARE ==
[2021-08-22 12:57] VITALS: TEMP 98.4
--- NOTE | 2021-08-22 17:11 | ED ---
General Adult HPI - General Chief complaint: Anxiety Stated complaint: anxiety Time Seen by Provider: 08/22/21 16:50 Source: patient, family, RN notes reviewed, old records reviewed Mode of arrival: ambulatory Limitations: no limitations - History of Present Illness Initial comments: 61-year-old male presenting for evaluation of generalized anxiety. Patient is requesting antianxiety medication. He does follow with psychiatry regularly. By review of his medical record there is no benzodiazepines prescribed currently. He denies chest pain or dyspnea. Denies abdominal pain. He reports generalized shaking secondary to his anxiety. - Related Data Home Medications Medication Instructions Recorded Confirmed lamoTRIgine [LaMICtal] 200 mg PO DAILY 09/25/17 09/10/20 Atorvastatin [Lipitor] 10 mg PO DAILY 08/29/20 09/10/20 Gabapentin 800 mg PO BID 08/29/20 09/10/20 Losartan [Cozaar] 50 mg PO DAILY 08/29/20 09/10/20 Metoprolol Succinate (ER) [Toprol 50 mg PO DAILY 08/29/20 09/10/20 XL] Venlafaxine HCl ER [Effexor XR] 150 mg PO DAILY 08/29/20 09/10/20 amLODIPine [Norvasc] 5 mg PO DAILY 09/10/20 09/10/20 Previous Rx's Medication Instructions Recorded Pantoprazole [Protonix] 40 mg PO DAILY #30 tablet. 04/09/16 Cyanocobalamin (Vitamin B-12) 2,000 mcg PO DAILY #30 tablet.er 09/12/20 [Vitamin B-12] busPIRone HCl [Buspar] 15 mg PO TID #90 tab 09/12/20 traZODone HCL [Desyrel] 100 mg PO HS #30 tab 09/12/20 LORazepam [Ativan] 1 mg PO HS 3 Days #3 tab 08/22/21 Allergies Allergy/AdvReac Type Severity Reaction Status Date / Time No Known Allergies Allergy Verified 08/22/21 12:57 Review of Systems ROS Statement: Those systems with pertinent positive or pertinent negative responses have been documented in the HPI. ROS Other: All systems not noted in ROS Statement are negative. Past Medical History Past Medical History: Eye Disorder, GI Bleed, Hypertension Additional Past Medical History / Comment(s): chronic back pain; Perforated bowel History of Any Multi-Drug Resistant Organisms: None Reported Past Surgical History: Bowel Resection, Joint Replacement, Orthopedic Surgery Additional Past Surgical History / Comment(s): left hip, right hip compound fracture,PAIN CLINIC PROCEDURE, SX FOR PERFORATED BOWEL Past Anesthesia/Blood Transfusion Reactions: No Reported Reaction Past Psychological History: Anxiety, Bipolar, Depression Smoking Status: Current every day smoker Past Alcohol Use History: None Reported Past Drug Use History: None Reported - Past Family History Mother Family Medical History: No Reported History Additional Family Medical History / Comment(s): Mother of pneumonia in her 70s. Father Family Medical History: Liver Disease Additional Family Medical History / Comment(s): Father is . He had liver cirrhosis/ETOH General Exam Limitations: no limitations General appearance: alert, anxious Head exam: Present: atraumatic, normocephalic Eye exam: Present: normal appearance, PERRL ENT exam: Present: normal exam Neck exam: Present: normal inspection. Absent: tenderness, meningismus Respiratory exam: Present: normal lung sounds bilaterally, respiratory distress Cardiovascular Exam: Present: regular rate, normal rhythm GI/Abdominal exam: Present: soft. Absent: distended, tenderness Neurological exam: Present: alert, oriented X3, CN II-XII intact, normal gait. Absent: motor sensory deficit Psychiatric exam: Present: anxious. Absent: homicidal ideation, suicidal ideation Skin exam: Present: warm, dry, intact. Absent: cyanosis, diaphoretic Course Vital Signs 08/22/21 12:52 Temperature 98.4 F Pulse Rate 87 Respiratory 18 Rate Blood Pressure 145/82 O2 Sat by Pulse 95 Oximetry Medical Decision Making - Medical Decision Making 61-year-old male requesting medication for chronic anxiety. This patient will be given 3 pills of Ativan for anxiety. He should follow-up with his primary care physician in his psychiatrist. Disposition Clinical Impression: Panic attack, Acute anxiety Disposition: HOME SELF-CARE Condition: Fair Instructions (If sedation given, give patient instructions): Generalized Anxiety Disorder (ED) Prescriptions: LORazepam [Ativan] 1 mg PO HS 3 Days #3 tab Is patient prescribed a controlled substance at d/c from ED?: No Referrals: Reuben Cameron [Primary Care Provider] - 1-2 days Time of Disposition: 17:10
[2021-08-22] MEDS ORDERED: LORazepam 1 MG TAB PO STA (17:13)
[2021-08-22 17:43] VITALS: BP 140/87; PULSE 85; RESP 17
== END 2021-08-22 17:43 | disposition home or self-care (01) ==
LOC: EC 12:44
DX: F41.0 Panic disorder [episodic paroxysmal anxiety] (principal); I10 Essential (primary) hypertension; F31.9 Bipolar disorder, unspecified; F17.200 Nicotine dependence, unspecified, uncomplicated
CPT/HCPCS: 99283

== ENCOUNTER → 2022-01-21 | Outpatient (CLI) | payer MEDICARE ==
[2022-01-21 14:32] VITALS: BP 141/66; PULSE 98; RESP 16
--- NOTE | 2022-01-21 14:50 | P.PAINPG ---
PQRS Measure Charge Sheet Comment: A 61 yr old male with a history of severe and chronic low back pain secondary to lumbar degenerative disc diseases and lumbar spondylosis with facet arthropathy without myelopathy presents today for evaluation. Pain level is currently at 9/10 in intensity, constant, localized in lower lumbar spine, burning in character w shooting towards the hips BL. Pain is provoked by bending/ lifting. Pain is alleviated with medications (Trazodone, Buspar, Mobic, [place], Neurontin), home stretching regimen, repositioning and rest. Interventional pain procedures completed include BL RFA L3-L5 Patient is currently on [place], Neurontin, Mobic Patient denies any side effects of the medication(s), denies excessive lisette wsiness or sleepiness, denies suicidal ideation and reports that the current pain medication is helping to control the pain and improve activities of daily living. Patient denies any motor or sensory deficits. Patient denies any fever or night sweats, denies any change in the bowel movements or urination. Physical Examination: -Constitutional: Cooperative. Not in acute distress . - Neurologic: Cranial nerve II to XII intact. No focal neurological deficits. - Psychatric: Alert & oriented x 3. Matching mood & appropriate affect. Judgment and insight intact. - Musculoskeletal: Cervical spine: Muscle bulk/ tone/ strength in the bilateral upper extremities normal Vertebral body tenderness to palpation over Spurling test positive Distraction test positive Facet loading test positive Thoracic spine Muscle bulk / tone/ strength in the bilateral paraspinal muscles normal Vertebral body tender to palpation over Facet loading test positive Lumbar spine: Motor bulk/ tone/ strength lower extremities , thigh and legs : 5/5 Deep tendon reflexes : Normal Knee Jerk. Normal Ankle Jerk . Vertebral body tenderness to palpation over L3, L4, L5 Lumbar Facet Loading Test positive Straight Leg Raise: positive at 30 degrees right side/ left side Gaenslen's Test positive Sacral spine : Severe tenderness over the Sacroiliac joint: right side / left side Range of motion: Flexion of the lumbar spine <60 degrees Range of motion: Extension of the lumbar spine <20 degrees Gaenslen's Test positive Toan's Test positive Eric test: positive right side / left side Thigh Thrust Test Sacral Thrust Test Assessment and plan: Chronic low back pain secondary to lumbar degenerative disc disease , lumbar spondylosis with facet arthropathy without myelopathy MRI without contrast of the lumbar spine re: M51.36 May return to our clinic for a re evaluation. Risks, benefits of procedure discussed and pt verbalized understanding. Denies anticoagulant use or medical history of diabetes. All patient questions answered MAPS reviewed and it was appropriate. Prescription for Robaxin 750mg #60 w 1 RF I have spent less than 30 minutes on patient care today. Dr Page was available by phone for the evaluation of this patient. The time was used to review the medical records including relevant urine studies and Prescription history (MAPs), review of the available imaging, evaluation and examination of the patient, coordination of care with the medical staff and if applicable referring physicians, as well as creation of the medical record PQRS Narrative: Smoking Status Former smoker Hx Alcohol Use (MH) No Home Medications: Ambulatory Orders Pantoprazole [Protonix] 40 mg PO DAILY #30 tablet. 04/09/16 lamoTRIgine [LaMICtal] 200 mg PO DAILY 09/25/17 Atorvastatin [Lipitor] 10 mg PO DAILY 08/29/20 Gabapentin 800 mg PO BID 08/29/20 Losartan [Cozaar] 50 mg PO DAILY 08/29/20 Metoprolol Succinate (ER) [Toprol XL] 50 mg PO DAILY 08/29/20 Venlafaxine HCl ER [Effexor XR] 150 mg PO DAILY 08/29/20 amLODIPine [Norvasc] 5 mg PO DAILY 09/10/20 Cyanocobalamin (Vitamin B-12) [Vitamin B-12] 2,000 mcg PO DAILY #30 tablet.er 09/12/20 busPIRone HCl [Buspar] 15 mg PO TID #90 tab 09/12/20 traZODone HCL [Desyrel] 100 mg PO HS #30 tab 09/12/20 LORazepam [Ativan] 1 mg PO HS 3 Days #3 tab 08/22/21 Controlled Substance Measures - Controlled Substance Measures Is patient prescribed a controlled substance at discharge?: No
== END | disposition home or self-care (01) ==
LOC: PNWHC3 13:31
PROVIDERS: ATTEND Specialist
DX: M47.896 Other spondylosis, lumbar region (principal)
CPT/HCPCS: 99211

== ENCOUNTER → 2022-07-24 | Outpatient (CLI) | payer MEDICARE ==
--- NOTE | 2022-07-24 22:43 | MR ---
EXAMINATION TYPE: MR lumbar spine wo con DATE OF EXAM: 07/24/2022 3:37 PM COMPARISON: Lumbar spine radiograph 09/15/2018. CLINICAL INDICATION:Male, 62 years old with history of M51.36 INTERVERTEBRAL DISC DEGENERATION, LUMBA R RE; Prior on synapse, low back pain left buttock pain for 1 year TECHNIQUE: Multi planar, multi sequence imaging was performed utilizing: T1-weighted, T2-weighted, a nd turbo inversion recovery imaging of the lumbar spine. IV Contrast: None. FINDINGS: Alignment: The lumbar vertebral bodies have preserved heights and alignment. Cord: The conus medullaris and the distal spinal cord appear unremarkable with regards to their signa l intensity and morphology. Bones/Discs: Multilevel Modic endplate changes are seen throughout the lumbar spine there is osteophy te formation, disc space narrowing with disc desiccation present. There is mild bony edema likely andreas ctive at the adjoining endplates of L3 on L4. Mild scoliosis changes apex L3 right. T12-L1: No evidence of significant spinal canal stenosis or neural foraminal stenosis. L1-L2: Disc bulge and facet joint arthropathy without significant spinal canal stenosis and mild bila teral neural foraminal stenosis. L2-L3: Disc bulge and facet joint arthropathy result in mild spinal canal and mild bilateral neural f oraminal stenosis. L3-L4: Disc bulge and facet joint arthropathy result in moderate spinal canal and mild left and moder ate right neural foraminal stenosis. Superimposed central protrusion present on series 601 image 12. No significant spinal canal stenosis. L4-L5: Disc bulge and facet joint arthropathy result in moderate spinal canal and moderate bilateral neural foraminal stenosis. L5-S1: A disc bulge with central protrusion without significant canal stenosis. The protrusion does n ot definitively abut any nerve roots. There is facet joint arthropathy with severe right and moderate left neural foraminal stenosis. Other findings: None. IMPRESSION: Overall findings are grossly similar to 2019 exam in regards to neural foraminal and spinal canal fransisco nosis. 1. L5-S1 disc herniation without significant spinal canal stenosis. Additional herniation on L3-L4 w ithout significant spinal canal stenosis. 2. There is moderate spinal canal stenosis at L3-L4 and L4-L5 secondary to disc bulging and arthropa thy changes. 3. Moderate to severe disc degeneration with associated osteoarthritic changes resulting in severe r ight L5-S1 moderate left L5-S1, left L4-L5 and L3-L4 neural foraminal stenosis.
== END | disposition home or self-care (01) ==
LOC: RADMRIMAIN 14:13
PROVIDERS: ATTEND Specialist
DX: M51.37 Other intervertebral disc degeneration, lumbosacral region (principal); M47.817 Spondylosis without myelopathy or radiculopathy, lumbosacral region; M51.27 Other intervertebral disc displacement, lumbosacral region; M99.73 Connective tissue and disc stenosis of intervertebral foramina of lumbar region
CPT/HCPCS: 72148

== ENCOUNTER → 2022-08-05 | Outpatient (CLI) | payer MEDICARE ==
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
[2022-08-05 15:30] VITALS: BP 172/95; PULSE 56; RESP 18; TEMP 98.1
== END ==
LOC: PNWHC3 13:48
PROVIDERS: ATTEND Specialist
DX: M51.36 Other intervertebral disc degeneration, lumbar region (principal); M47.816 Spondylosis without myelopathy or radiculopathy, lumbar region; G89.29 Other chronic pain; Z87.891 Personal history of nicotine dependence
CPT/HCPCS: 99211

== ENCOUNTER → 2022-11-11 | Outpatient (CLI) | payer MEDICARE ==
--- NOTE | 2022-11-11 14:47 | XR ---
EXAMINATION TYPE: XR chest 2V DATE OF EXAM: 11/11/2022 12:44 PM COMPARISON: Chest radiographs from 09/10/2020 TECHNIQUE: XR chest 2V Frontal and lateral views of the chest. CLINICAL INDICATION:Male, 62 years old with history of [id number], NOT SPECIFIED ACUTE OR CHRON IC; FINDINGS: Lungs/Pleura: There is no evidence of pleural effusion, focal consolidation, or pneumothorax. Pulmonary vascularity: Unremarkable. Heart/mediastinum: Cardiomediastinal silhouette is unremarkable. Musculoskeletal: No acute osseous pathology. Right upper quadrant cholecystectomy clips. IMPRESSION: 1. No acute cardiopulmonary disease process. 2. COPD changes.
== END | disposition home or self-care (01) ==
LOC: RADXRMAIN 12:11
PROVIDERS: ATTEND Family Medicine
DX: J44.9 Chronic obstructive pulmonary disease, unspecified (principal)
CPT/HCPCS: 71046

== ENCOUNTER → 2023-05-28 | Outpatient (CLI) | payer MEDICARE ==
[2023-05-28 14:11] VITALS: BP 145/91; PULSE 56; RESP 16; TEMP 96.9
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
== END ==
LOC: PNWHC3 13:55
PROVIDERS: ATTEND Specialist
DX: M51.36 Other intervertebral disc degeneration, lumbar region (principal); M47.816 Spondylosis without myelopathy or radiculopathy, lumbar region; G89.29 Other chronic pain; Z87.891 Personal history of nicotine dependence
CPT/HCPCS: 99211

== ENCOUNTER → 2023-08-18 | Outpatient (CLI) | payer MEDICARE ==
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
[2023-08-18 15:03] VITALS: BP 160/98; PULSE 78; RESP 15; TEMP 98.5
== END ==
LOC: PNWHC3 13:40
PROVIDERS: ATTEND Specialist
DX: M51.26 Other intervertebral disc displacement, lumbar region (principal); M48.061 Spinal stenosis, lumbar region without neurogenic claudication; M51.36 Other intervertebral disc degeneration, lumbar region; M47.816 Spondylosis without myelopathy or radiculopathy, lumbar region; G89.29 Other chronic pain; Z87.891 Personal history of nicotine dependence
CPT/HCPCS: 99211

== ENCOUNTER 2023-09-04 12:37 | Day surgery (SDC) | payer MEDICARE ==
[~2023-09-04 12:37] MED LIST changes: -IV FLUID CONTINUATION 1,000 ML IV ONE; -LIDOCAINE 1% 20 ML VIAL (10MG/ML) FOR IV START INTRADERMA ONE
[2023-09-04 13:11] VITALS: RESP 18; TEMP 97.6
[2023-09-04] MEDS ORDERED: methylPREDNISolone ACETATE 40 MG/ML 1 ML VIAL ONE (13:42)
[2023-09-04] MEDS ORDERED: IOPAMIDOL M200 10 ML VIAL ONE (13:42)
--- NOTE | 2023-09-04 13:49 | P.PCN ---
Date of Procedure: 09/04/23 Description of Procedure: PREOPERATIVE DIAGNOSIS: lumbar radiculopathy POSTOPERATIVE DIAGNOSIS: Lumbar radiculopathy PROCEDURE 1. Lumbar epidural steroid injection under fluoroscopic guidance at theL5-S1 level. 2. Lumbar epidurogram. Imaging: Fluoroscopy was used, images where saved to the medical record ANESTHESIA:local only EBL: Minimal PROCEDURE INDICATION: The patient with low back pain and radiculitis symptoms unresponsive to conservative treatment. Fluoroscopy was used to optimize visualization of the needle placement and to maximize safety. PROCEDURE DESCRIPTION / TECHNIQUE: The patient was seen and identified in the preoperative area. Risks, benefits, complications including but not limited to infections, bleeding, allergic reaction to medications, nerve damage and incomplete pain relief, as well as alternatives to the procedure were discussed with the patient. The patient agreed to proceed with the procedure and signed the consent. IV was started if indicated above, and vital signs were stable. Patient was taken to the OR and time out was completed. The patient was placed in the prone position on procedure table and a pillow was placed under the abdomen to reduce lumbar lordosis. The lumbosacral area was prepped and draped in the usual sterile fashion. Vitals were closely monitored during the procedur e. Using anterior-posterior fluoroscopy, the L5-S1 interlaminar space was identified and the skin over this site was marked and then infiltrated with 1% lidocaine subcutaneously. Subsequently, a 20-gauge Tuohy epidural needle was inserted and advanced toward the epidural space using the Loss of resistance technique and guided by AP and lateral fluoroscopy. The correct needle position in the epidural space was verified with the injection of 1 mL of Omnipaque 180 contrast to observe an acceptable epidurogram, after negative aspiration for blood and CSF and in the absence of paresthesias. Again after negative aspiration, a 3 ml mixture containing 40mg of depomedrol and 2 ml of preservative free Normal Saline was injected and a washout of epidurogram was seen. Needle was withdrawn intact, skin was cleansed, and bandages were applied. COMPLICATIONS: None DISPOSITION / PLANS: The patient was placed in a supine position and transferred to the recovery area in a stable condition for observation. There was no evidence of lower extremity motor or sensory deficit after the procedure. Patient was discharged from the recovery room after meeting discharge criteria. Home discharge instructions were given to the patient by the staff. The patient was reexamined prior to discharge. The patient will follow up as directed. patient did not take his blood pressure medications morning advised him to take medications as he gets home today. He denies any chest patient's of breath or headaches associated with his hypertension
--- NOTE | 2023-09-04 14:09 | FL ---
EXAMINATION TYPE: FL guided pain mgmt statistic DATE OF EXAM: 09/04/2023 HISTORY: Fluoroscopy time Total dose area product (DAP) in uGy*m?, mGy*cm? (or similar): 0.78369 IMPRESSION: 1. Fluoroscopy time.
[2023-09-04 14:51] VITALS: BP 169/78; PULSE 55
== END 2023-09-04 14:22 | disposition home or self-care (01) ==
LOC: ORPAIN 12:37
PROVIDERS: ATTEND Hospitalist
DX: M54.16 Radiculopathy, lumbar region (principal); Z79.01 Long term (current) use of anticoagulants; Z79.1 Long term (current) use of non-steroidal anti-inflammatories (NSAID)
CPT/HCPCS: 62323; Q9966; J1010

== ENCOUNTER → 2023-09-25 | Outpatient (CLI) | payer MEDICARE ==
[2023-09-25 14:13] VITALS: BP 158/89; PULSE 55; RESP 16
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
== END ==
LOC: PNWHC3 13:24
PROVIDERS: ATTEND Specialist
DX: M51.37 Other intervertebral disc degeneration, lumbosacral region (principal); M47.817 Spondylosis without myelopathy or radiculopathy, lumbosacral region; Z87.891 Personal history of nicotine dependence
CPT/HCPCS: 99211

== ENCOUNTER → 2024-02-25 | Outpatient (CLI) | payer MEDICARE ==
[2024-02-25 13:05] VITALS: BP 167/92; PULSE 65; RESP 16
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
== END ==
LOC: PNWHC3 12:32
PROVIDERS: ATTEND Specialist
DX: M47.26 Other spondylosis with radiculopathy, lumbar region (principal); Z87.891 Personal history of nicotine dependence
CPT/HCPCS: 99211

== ENCOUNTER → 2024-03-18 | Outpatient (CLI) | payer MEDICARE ==
--- NOTE | 2024-03-18 16:38 | US ---
EXAMINATION TYPE: US venous doppler duplex LE LT DATE OF EXAM: 03/18/2024 3:20 PM COMPARISON: US 2010 CLINICAL INDICATION: Male, 63 years old with history of R30.0 DYSURIA; , Pain TECHNIQUE: The lower extremity deep venous system is examined utilizing real time linear array sonog meliton with graded compression, color doppler sonography, and spectral doppler. SIDE PERFORMED: Left FINDINGS: VESSELS IMAGED: Common Femoral Vein Deep Femoral Vein Greater Saphenous Vein * Femoral Vein Popliteal Vein Small Saphenous Vein * Proximal Calf Veins (* superficial vessels) Left Leg: Appears negative for DVT IMPRESSION: No ultrasound evidence for deep venous thrombosis. [facility], , 03/18/2024 4:35 PM
== END | disposition home or self-care (01) ==
LOC: RADUSWWP 15:18
PROVIDERS: ATTEND Family Medicine
DX: M79.89 Other specified soft tissue disorders (principal); R30.0 Dysuria

== ENCOUNTER → 2024-04-21 | Outpatient (CLI) | payer MEDICARE ==
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
[2024-04-21 17:38] VITALS: BP 193/98; PULSE 62; RESP 16; TEMP 98.1
== END ==
LOC: PNWHC3 12:37
PROVIDERS: ATTEND Specialist
DX: M47.27 Other spondylosis with radiculopathy, lumbosacral region (principal); Z87.891 Personal history of nicotine dependence
CPT/HCPCS: 80307; 99212

== ENCOUNTER → 2024-06-16 | Outpatient (CLI) | payer MEDICARE ==
[2024-06-16 13:07] VITALS: BP 178/104; PULSE 50; RESP 17; TEMP 97.4
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
== END ==
LOC: PNWHC3 12:46
PROVIDERS: ATTEND Specialist
DX: M47.26 Other spondylosis with radiculopathy, lumbar region (principal); G89.29 Other chronic pain; Z87.891 Personal history of nicotine dependence
CPT/HCPCS: 99212